=== PATIENT | male | born 1940 | race Caucasian/White ===

== ENCOUNTER 2021-07-17 12:36 | Inpatient (IN) ==
[2021-07-17 13:49] LABS: Eosinophils # (auto) 0.03 K/uL (0-0.5); Eosinophils % (auto) 0.3 %; Hematocrit (blood only) 40.2 % (42-52); Immature Granulocytes # (auto) 0.02 K/uL (0.00-0.02); Immature Granulocytes % (auto) 0.2 %; Lymphocytes # (auto) 0.49 K/uL (1.2-3.4); Lymphocytes % (auto) 4.8 %; Mean Corpuscular Hemoglobin 29.8 pg (25-34); Mean Corpuscular Hgb Conc 32.3 g/dL (32-36); Mean Corpuscular Volume 92.2 fL (80-100); Mean Platelet Volume 10.5 fL (7.4-10.4); Monocytes # (auto) 0.42 K/uL (0.11-0.59); Monocytes % (auto) 4.1 %; Neutrophils % (auto) 90.6 %; Platelet Count 303 K/uL (130-400); RDW Standard Deviation 53.9 fL (36.4-46.3); Red Blood Count 4.36 M/uL (4.7-6.1); White Blood Count 10.26 K/uL (4.8-10.8)
--- NOTE | 2021-07-17 14:04 | XRay Report ---
XR chest 1V portable INDICATION: MN ^weakness . TECHNIQUE: Single frontal radiograph of the chest was obtained. Comparison: Comparison is made to chest one view 05/07/2016 FINDINGS: No lines and tubes are seen. Calcified aortic knob is seen. Lungs are hyperinflated. No evidence of p leural effusion or pneumothorax. IMPRESSION: No acute chest disease. ACT 112: Negative or not required by law. Electronically signed by: Umair Garcia M.D. 07/17/2021 2:03 PM
[2021-07-17 14:05] LABS: Albumin Level 3.2 gm/dl (3.4-5.0); BUN Creatinine Ratio 22.8 (10-20); Creatinine Clr Calc Pharmacy 22.9 ml/min; Est GFR (Non-African American) 29.4 ml/min; Potassium 4.3 mmol/L (3.5-5.1)
[2021-07-17 14:16] LABS: Albumin Globulin Ratio 0.7 (0.9-2); Bilirubin,Total 0.4 mg/dl (0.2-1); Globulin 4.4 gm/dl (2.5-4.0); Total Protein 7.6 gm/dl (6.4-8.2); Troponin I 0.016 ng/ml (0-0.045)
--- NOTE | 2021-07-17 14:47 | Emergency Department Note ---
Impression & Plan MARICRUZ (acute kidney injury), Weakness, Anemia, Tobacco abuse ED Provider Note NAME: WILLEM POSADAS AGE: 81 SEX: M : 1940 ARRIVES VIA: Ambulance INFORMANT: Patient, ED PROVIDER(S): Fred Hsieh MD Chief Complaint: Inability to get up, weakness HPI: Patient does present from home due to concern for dizziness and weakness. The patient does live by himself along with his dog. The patient states that he has not been eating or drinking very much. The patient states that he did not want to fall despite himself on the ground. The patient was found in the bathroom have been there for approximately half an hour until [employer] had shown up and found the patient. EMS arrived it at the patient was able to get up to walk. He agreed to present for further evaluation and treatment. EMS was concerned with the patient's living conditions. The patient is unsure if he is vaccinated for Covid. Patient denies any fevers chills chest pains or shortness of breath. Patient is a chronic smoker. Patient denies any abdominal pain nausea or vomiting. Patient does have an ostomy. Patient denies any numbness tingling or focal weakness. Patient denies head or neck pain. ROS: See HPI for pertinent positives and negatives. A total of 10 systems were reviewed and otherwise negative. Past medical history: See below Surgical history: See below Social history: See below Physical Exam: GENERAL: Disheveled, thin in appearance, NAD, wearing a mask, non-toxic. EYE EXAM: Normal conjunctiva. PERRL, no anisocoria and EOM's grossly intact w/o pain. NECK: Supple, no nuchal rigidity, no adenopathy, non-tender. No signs of meningismus. LUNGS: Clear to auscultation. Normal chest wall mechanics. HEART: NSR, no MRG. ABDOMEN: Abdomen soft, ostomy present, normo-active bowel sounds, no masses, no rebound or guarding. BACK: No CVA TTP. SKIN: No rashes and no bruising. UPPER EXTREMITIES: Upper extremities are grossly normal. LOWER EXTREMITIES: Grossly normal, no edema. NEURO EXAM: A&O x3, cranial nerves II-XII grossly intact, normal speech, moves all 4 extremities. Differential diagnoses: Infection, dehydration, metabolic abnormality, hypo/hyperglycemia, electrolyte disturbance, anemia, hypoxia, cardiac sources, intracerebral event, toxicologic, neurologic, as well as other pathologies. Course: Patient was seen and evaluated the bedside. Full history physical exam was performed. EKG interpreted by me Sinus with rate of 89, normal intervals, normal axis, T wave flattening in aVL. Imaging Studies: See Below Cardiac monitoring: An order was placed for continuous cardiac monitoring. The monitor shows a rate of 92 with sinus rhythm. MDM: Patient did present with concern for weakness. Blood work was obtained. EKG does not show any obvious arrhythmia. Chest x-ray is unremarkable. Patient is a normal white count mild anemia with hemoglobin of 13 with a normal platelet coun t. Kidney function unsure as to baseline but creatinine is 2. Patient did receive IV fluids as the patient does have prerenal azotemia. Mag Maria Luisa calcium normal. TSH is normal. Covid negative. After further discussion with the patient and the case folder do not believe the patient is safe for home at this time. Patient was agreeable to be admitted. I did speak the on-call hospitalist and the patient was admitted to the medicine service by Dr. Doe. Past Med/Surg History Medical History Tobacco user Surgical History Colostomy status History of appendectomy Family History Other Family history unknown Social History Smoking Status: Current every day smoker Tobacco Type: Cigarettes packs per day: 2; Years Smoked: 50; Cigarettes Per Day: > 2 packs; Hx Alcohol Use: No Hx Substance Use: No Preferred Language: Sami Communication Ability: Effective Beliefs That Will Affect Care: None marital status: Single Current Living Situation: Alone Feels Safe at Home: Yes Assistive Devices: None Allergies Allergies Allergy/AdvReac Type Severity Reaction Status Date / Time No Known Allergies Allergy Unverified 07/17/21 16:08 Home Meds Home Medications Medication Instructions Recorded Confirmed No Known Home Medications 07/17/21 07/17/21 Results & Data (ED) Vital Signs Vital Signs - 24 hr 07/17/21 12:58 07/17/21 13:30 07/17/21 13:40 Temperature 36.5 C Temperature Source Oral Pulse Rate 91 H 110 H Pulse Rate from SpO2 Sensor Respiratory Rate 18 Respiratory Effort / Characteristics Non-Labored Respiratory Depth Normal Blood Pressure 127/62 131/71 Blood Pressure Mean 83 91 Pulse Oximetry 99 Oxygen Delivery Method Room Air Room Air Sepsis Recent Fever Within 48 Hours No Sepsis New/Unexplained Change in Mental Status No Sepsis Action Taken by Nursing No Action Required 07/17/21 14:00 07/17/21 15:00 07/17/21 15:30 Temperature Temperature Source Pulse Rate 89 94 H 90 Pulse Rate from SpO2 Sensor 88 94 H 89 Respiratory Rate 19 19 14 Respiratory Effort / Characteristics Respiratory Depth Blood Pressure 124/68 132/63 123/71 Blood Pressure Mean 86 86 88 Pulse Oximetry 99 98 97 Oxygen Delivery Method Room Air Sepsis Recent Fever Within 48 Hours Sepsis New/Unexplained Change in Mental Status Sepsis Action Taken by Nursing 07/17/21 16:00 07/17/21 16:31 07/17/21 17:00 Temperature Temperature Source Pulse Rate 103 H 103 H 86 Pulse Rate from SpO2 Sensor 102 H 106 H Respiratory Rate 21 18 20 Respiratory Effort / Characteristics Respiratory Depth Blood Pressure 106/61 127/68 148/65 H Blood Pressure Mean 76 87 92 Pulse Oximetry 100 99 96 Oxygen Delivery Method Sepsis Recent Fever Within 48 Hours Sepsis New/Unexplained Change in Mental Status Sepsis Action Taken by Nursing 07/17/21 17:31 Temperature Temperature Source Pulse Rate 87 Pulse Rate from SpO2 Sensor Respiratory Rate 16 Respiratory Effort / Characteristics Respiratory Depth Blood Pressure 123/49 L Blood Pressure Mean 73 Pulse Oximetry 97 Oxygen Delivery Method Sepsis Recent Fever Within 48 Hours Sepsis New/Unexplained Change in Mental Status Sepsis Action Taken by [facility] Medications Current Medication List: was personally reviewed by me Laboratory Data Attestation: I reviewed the patient's lab results. Result diagrams: 07/17/21 13:40 07/17/21 13:40 Lab Results 07/17/21 07/17/21 07/17/21 Range/Units 13:40 13:40 13:40 WBC 10.26 (4.8-10.8) K/uL RBC 4.36 L (4.7-6.1) M/uL Hgb 13.0 L (14.0-18.0) g/dL Hct 40.2 L (42-52) % MCV 92.2 (80-100) fL MCH 29.8 (25-34) pg MCHC 32.3 (32-36) g/dL RDW Std Deviation 53.9 H (36.4-46.3) fL RDW Coeff of Ramsey 16.0 H (11.5-14.5) % Plt Count 303 (130-400) K/uL MPV 10.5 H (7.4-10.4) fL Immature Gran % (Auto) 0.2 % Neut % (Auto) 90.6 % Lymph % (Auto) 4.8 % [place] % (Auto) 4.1 % Eos % (Auto) 0.3 % Baso % (Auto) 0.0 % Neut # (Auto) 9.30 H (1.4-6.5) K/uL Lymph # (Auto) 0.49 L (1.2-3.4) K/uL [place] # (Auto) 0.42 (0.11-0.59) K/uL Eos # (Auto) 0.03 (0-0.5) K/uL Baso # (Auto) 0.00 (0-0.2) K/uL Immature Gran # (Auto) 0.02 (0.00-0.02) K/uL Sodium 138 (136-145) mmol/L Potassium 4.3 (3.5-5.1) mmol/L Chloride 108 H (98-107) mmol/L Carbon Dioxide 23 (21-32) mmol/L Anion Gap 7.0 (3-11) BUN 47 H (7-18) mg/dl Creatinine 2.07 H (0.6-1.4) mg/dl Est Cr Clr Drug Dosing 22.9 ml/min Est GFR ( Amer) 34.0 ml/min Est GFR (Non-Af Amer) 29.4 ml/min BUN/Creatinine Ratio 22.8 H (10-20) Glucose 78 (70-99) mg/dl Calcium 10.0 (8.5-10.1) mg/dl Phosphorus (2.5-4.9) mg/dl Magnesium (1.8-2.4) mg/dl Total Bilirubin 0.4 (0.2-1) mg/dl AST 22 (15-37) U/L ALT 20 (12-78) U/L Alkaline Phosphatase 54 (45-117) U/L Total Creatine Kinase (39-308) U/L Troponin I 0.016 (0-0.045) ng/ml Total Protein 7.6 (6.4-8.2) gm/dl Albumin 3.2 L (3.4-5.0) gm/dl Globulin 4.4 H (2.5-4.0) gm/dl Albumin/Globulin Ratio 0.7 L (0.9-2) TSH 2.000 (0.300-4.500) uIu/ml COVID-19 Eval Order Covid19 at [facility] SARS-CoV-2 (PCR) (Negative) 07/17/21 07/17/21 Range/Units 13:40 13:40 WBC (4.8-10.8) K/uL RBC (4.7-6.1) M/uL Hgb (14.0-18.0) g/dL Hct (42-52) % MCV (80-100) fL MCH (25-34) pg MCHC (32-36) g/dL RDW Std Deviation (36.4-46.3) fL RDW Coeff of Ramsey (11.5-14.5) % Plt Count (130-400) K/uL MPV (7.4-10.4) fL Immature Gran % (Auto) % Neut % (Auto) % Lymph % (Auto) % [place] % (Auto) % Eos % (Auto) % Baso % (Auto) % Neut # (Auto) (1.4-6.5) K/uL Lymph # (Auto) (1.2-3.4) K/uL [place] # (Auto) (0.11-0.59) K/uL Eos # (Auto) (0-0.5) K/uL Baso # (Auto) (0-0.2) K/uL Immature Gran # (Auto) (0.00-0.02) K/uL Sodium (136-145) mmol/L Potassium (3.5-5.1) mmol/L Chloride (98-107) mmol/L Carbon Dioxide (21-32) mmol/L Anion Gap (3-11) BUN (7-18) mg/dl Creatinine (0.6-1.4) mg/dl Est Cr Clr Drug Dosing ml/min Est GFR ( Amer) ml/min Est GFR (Non-Af Amer) ml/min BUN/Creatinine Ratio (10-20) Glucose (70-99) mg/dl Calcium (8.5-10.1) mg/dl Phosphorus 3.8 (2.5-4.9) mg/dl Magnesium 2.2 (1.8-2.4) mg/dl Total Bilirubin (0.2-1) mg/dl AST (15-37) U/L ALT (12-78) U/L Alkaline Phosphatase (45-117) U/L Total Creatine Kinase 274 (39-308) U/L Troponin I (0-0.045) ng/ml Total Protein (6.4-8.2) gm/dl Albumin (3.4-5.0) gm/dl Globulin (2.5-4.0) gm/dl Albumin/Globulin Ratio (0.9-2) TSH (0.300-4.500) uIu/ml COVID-19 Eval Order SARS-CoV-2 (PCR) NEGATIVE (Negative) Administered Medications Heparin Sodium (Porcine) (Heparin Sod 5,000 Unit/0.5 Ml Vial) 5,000 units SQ Q12 VANNA Stop: 08/16/21 22:29 Last Admin: 07/18/21 08:23 Dose: 5,000 units Documented by: [id number] Admin: 07/17/21 23:04 Dose: Not Given Documented by: [id number] Sodium Chloride (Nss 1000ml) 1,000 mls @ 80 mls/hr IV .[id number] [facility] Stop: 08/16/21 18:20 Last Admin: 07/18/21 06:09 Dose: 80 mls/hr Documented by: [id number] Infusion: 07/18/21 06:09 Dose: 80 mls/hr Documented by: [id number] Admin: 07/17/21 19:40 Dose: 80 mls/hr Documented by: [id number] Imaging Data Radiologist's Impression: Chest X-Ray 07/17/21 13:17 XR chest 1V portable INDICATION: MN ^weakness . TECHNIQUE: Single frontal radiograph of the chest was obtained. Comparison: Comparison is made to chest one view 05/07/2016 FINDINGS: No lines and tubes are seen. Calcified aortic knob is seen. Lungs are hyperinf lated. No evidence of pleural effusion or pneumothorax. IMPRESSION: No acute chest disease. ACT 112: Negative or not required by law. Electronically signed by: Umair Garcia M.D. 07/17/2021 2:03 PM Discharge Plan Visit Data Chief Complaint: Weakness ED Provider: Fred Hsieh Discharge Problem: MARICRUZ (acute kidney injury), Weakness, Anemia, Tobacco abuse Patient Disposition: Admitted As Inpatient Discharge Instructions Interventions: ED Discharge Assessment Last Done: 07/17/21 21:43
[2021-07-17 18:00] LABS: Magnesium 2.2 mg/dl (1.8-2.4); Phosphorus 3.8 mg/dl (2.5-4.9)
--- NOTE | 2021-07-17 18:03 | Electrocardiogram Report ---
Test Reason : Blood Pressure : / mmHG Vent. Rate : 089 BPM Atrial Rate : 089 BPM P-R Int : 140 ms QRS Dur : 086 ms QT Int : 374 ms P-R-T Axes : 077 075 055 degrees QTc Int : 455 ms Poor data quality, interpretation may be adversely affected Sinus rhythm with Premature supraventricular complexes Borderline ECG When compared with ECG of 07-MAY-2016 12:52, Premature supraventricular complexes are now Present Confirmed by Matt Menendez ([id number]) on 07/17/2021 6:02:32 PM Referred By: Confirmed By:Matt Menendez
--- NOTE | 2021-07-17 18:21 | History & Physical Report ---
Date of Service July 17, 2021 Assessment & Plan (1) Fall: (2) Weakness: (3) Malnutrition: (4) Failure to thrive: Plan: 81 year old Male with unknown medical problems who presents to ED after being found on ground by [employer], unkempt and in a house that is in poor condition. Admits to not eating/drinking for last few days. States felt like he was going to pass out so lowered himself to the floor. He was on ground for ~ 30 minutes until being found by [employer]. 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 He has no contact with family. Pt states medical conditions unknown, he is prescribed medications but he is unsure what and has not been taking any for some time. Overall very poor historian. (5) MARICRUZ (acute kidney injury): Plan: unknown baseline cr bun/cr 47 and 2.07 pt appears very dry, likely pre renal IVF 80cc/hr, repat in am obtain renal US, UA, urine na, osm, prot/cr ratio (6) PVC (premature ventricular contraction): Plan: follow on tele ecg in a.m. (7) Anemia: Plan: h/h 13.0 and 40.2 normocytic normochromic expect it is likely lower due to dehydration anemia panel ordered for am. (8) Colostomy status: Plan: RLQ ostomy, pt unknown reason, he thinks ? colon ca colostomy care (9) Tobacco abuse: Plan: encourage smoking cessation he declines nicotine patch, will order prn (10) Sacral wound: Plan: as well as R lateral hip abrasion consullt wound care Dvt ppx: SQ Heparin Q12h Dispo: med tele PCP: unknown FULL CODE Pt was seen and examined in collaboration with Dr. Doe, please see addendum Primary Contact is friend, Renee Hoskins, . Attempted to call multiple time and no answer to obtain info regarding past medical history, medications or pharmacy used. History of Present Illness Chief Complaint: Fall and weakness prior to arrival. Primary Care Provider: NO PCP This is an 81 male who has a mostly unknown past medical history except for a colostomy and significant tobacco abuse who presents to ED after being found by [employer] on the ground at home after sustained fall and unable to get up. He lives alone at home and was found on the ground by [employer]. Patient states that he felt like he was going to pass out and therefore he lowered himself to the ground. He was only on the ground for approximately 30 minutes. He was unable to get off the ground by himself. EMS was summoned and according to EMS patient's living conditions were unkempt. He has run out of his colostomy supplies and therefore his bowels have just been moving out of his stoma. Currently he denies any pain. He denies any recent illness. He denies any fever, chills, sweats, lightheadedness, dizziness, chest pain, shortness of breath, cough, nausea, vomiting, abdominal pain. He further denies any diarrhea, melena or hematochezia. He is unable to provide me any medical history. He denies any significant medical problems. He admits to having his appendix taken out many years ago, but cannot recall any other surgeries. He is unsure why he had a colostomy and states, "why also they give you a colostomy?" When asked if he felt it was related to a colon cancer he states, "I think it was due to cancer." He states he is prescribed medications but is unsure of his pharmacy. He is unsure what he is prescribed. He has no current family or support system. In ED he remained he dynamically stable lab work for can Ki-1 the BUN of 47 creatinine of 2.07, low albumin at 3.2, H&H 13.0 and 40.2. PMH and FH Unknown per patient Surgical hx: s/p colostomy ? colon ca and hx of appendectomy Allergies Allergy/AdvReac Type Severity Reaction Status Date / Time No Known Allergies Allergy Unverified 07/17/21 16:08 Home Medications Medication Instructions Recorded Confirmed Type No Known Home Medications 07/17/21 07/17/21 History Past Med/Surg History Surgical History (Updated 07/17/21 @ 18:36 by Sharon Hernandez PA-C) Colostomy status History of appendectomy Family History (Updated 07/17/21 @ 18:24 by Sharon Hernandez PA-C) Other Family history unknown Social History (Updated 07/17/21 @ 18:24 by Sharon Hernandez PA-C) Smoking Status: Current every day smoker Tobacco Type: Cigarettes packs per day: 2; Years Smoked: 50; Hx Alcohol Use: No Hx Substance Use: No Preferred Language: Mongolian Communication Ability: Effective marital status: Single Current Living Situation: Alone Feels Safe at Home: Yes Review of Systems Review of Systems: All systems reviewed & are unremarkable except as noted in HPI & below Physical Exam Physical Exam: Constitutional: Tall thin, cachectic, male, vitals as above, NAD, sitting up in bed, flat affect Head: Normocephalic, Atraumatic, bilateral temporal wasting Eyes: PERRL, conjunctivae normal, anicteric sclerae ENMT: external ear and nose normal, oropharynx normal Neck: trachea midline, no thyromegaly normal visual inspection Respiratory: normal respiratory effort, lungs clear to auscultation, no wheeze, rales, rhonchi. Normal insp/exp effort, no accessory muscle use Cardiovascular: RRR, 2/6 JATINDER noted best RUSB, no edema Vessels: no JVD or carotid bruit Chest: normal inspection of chest Abdomen: + Colostomy status, with erythema and surrounding skin, normal bowel sounds, soft, nontender, no hepatosplenomegaly Musculoskeletal: no cyanosis or clubbing, active range of motion x4 Skin: no rashes, warm and dry moderate turgor Neurologic: PERRL, EOMI, accommodation nl, no face palsy, no dysarthria CN's II-XI intact bilaterally and moves all extremities Psychiatric: A+O to self and place only, euthymic affect : deferred Results & Data Results & Data ([facility]) Vital Signs (Past 12 Hours) Vital Signs Temp Pulse Resp BP Pulse Ox 07/17/21 16:31 103 H 18 127/68 99 07/17/21 16:00 103 H 21 106/61 100 07/17/21 15:30 90 14 123/71 97 07/17/21 15:00 94 H 19 132/63 98 07/17/21 14:00 89 19 124/68 99 07/17/21 13:30 110 H 131/71 07/17/21 12:58 36.5 C 91 H 18 127/62 99 Diagnostic Findings Chest X-Ray 07/17/21 13:17 XR chest 1V portable INDICATION: MN ^weakness . TECHNIQUE: Single frontal radiograph of the chest was obtained. Comparison: Comparison is made to chest one view 05/07/2016 FINDINGS: No lines and tubes are seen. Calcified aortic knob is seen. Lungs are hyperinflated. No evidence of pleural effusion or pneumothorax. IMPRESSION: No acute chest disease. ACT 112: Negative or not required by law. Electronically signed by: Umair Garcia M.D. 07/17/2021 2:03 PM ECG Rate (beats per minute): 89 Rhythm: normal sinus Findings: + PVC COVID-19 Results Results COVID-19 Adm Lab Results: RBC 4.36 M/uL (4.7-6.1) L 07/17/21 WBC 10.26 K/uL (4.8-10.8) 07/17/21 Hgb 13.0 g/dL (14.0-18.0) L 07/17/21 Hct 40.2 % (42-52) L 07/17/21 Plt Count 303 K/uL (130-400) 07/17/21 Neutrophils (%) (Auto) 90.6 % 07/17/21 Lymphocytes (%) (Auto) 4.8 % 07/17/21 Monocytes # (Auto) 0.42 K/uL (0.11-0.59) 07/17/21 Eosinophils # (Auto) 0.03 K/uL (0-0.5) 07/17/21 Immature Granulocyte % (Auto) 0.2 % 07/17/21 Neutrophils # (Auto) 9.30 K/uL (1.4-6.5) H 07/17/21 Lymphocytes # (Auto) 0.49 K/uL (1.2-3.4) L 07/17/21 Monocytes # (Auto) 0.42 K/uL (0.11-0.59) 07/17/21 Eosinophils # (Auto) 0.03 K/uL (0-0.5) 07/17/21 Basophils # (Auto) 0.00 K/uL (0-0.2) 07/17/21 Immature Granulocyte # (Auto) 0.02 K/uL (0.00-0.02) 07/17/21 Na 138 mmol/L (136-145) 07/17/21 K 4.3 mmol/L (3.5-5.1) 07/17/21 Cl 108 mmol/L (98-107) H 07/17/21 CO2 23 mmol/L (21-32) 07/17/21 Anion Gap 7.0 (3-11) 07/17/21 BUN 47 mg/dl (7-18) H 07/17/21 Creatinine 2.07 mg/dl (0.6-1.4) H 07/17/21 BUN/Creatinine Ratio 22.8 (10-20) H 07/17/21 Glucose Level 78 mg/dl (70-99) 07/17/21 Ca 10.0 mg/dl (8.5-10.1) 07/17/21 Phosphorus Level 3.8 mg/dl (2.5-4.9) 07/17/21 Total Bilirubin 0.4 mg/dl (0.2-1) 07/17/21 AST/SGOT 22 U/L (15-37) 07/17/21 ALT/SGPT 20 U/L (12-78) 07/17/21 Alkaline Phosphatase 54 U/L (45-117) 07/17/21 Total Protein 7.6 gm/dl (6.4-8.2) 07/17/21 Albumin 3.2 gm/dl (3.4-5.0) L 07/17/21 Globulin 4.4 gm/dl (2.5-4.0) H 07/17/21 Albumin/Globulin Ratio 0.7 (0.9-2) L 07/17/21 Total CK 274 U/L (39-308) 07/17/21 Troponin I 0.016 ng/ml (0-0.045) 07/17/21 COVID-19 PCR NEGATIVE (Negative) 07/17/21 Chest X-Ray 07/17/21 Code Status & VTE Plan Code Status Full Code VTE Prophylaxis Plan VTE Prophylaxis will be ordered: Yes Supervising Physician Co-Signing Physician Notes Patient is an 81-year-old male with unknown past medical history, S/P colostomy, tobacco use disorder and other problems with phone on the floor after sustaining a fall today. Patient is a very poor historian. Patient admits to being noncompliant on medications use and he is unaware of his home medications. He admits to feeling dizzy and lowered himself to the ground and was on the floor for about 30 minutes. He denies any syncopal episode, head trauma. States that he is poor oral intake since 2 days duration. Patient ran out of colostomy supplies. Please review HPI for complete details of presentation. On exam patient is thin, frail, unkept, chronically appearing, normocephalic atraumatic, lungs are clear to auscultation, normal breath sounds, S1-S2,+ murmur, no pedal edema, abdomen soft, nontender, normal bowel sounds, + colostomy, alert, awake, oriented, grossly no focal deficits. He was noted to have creatinine levels at 2.07. Unknown baseline Cr. PVCs noted on monitor. Urine analysis is pending currently. Patient is admitted for management of fall, ambulatory dysfunction, MARICRUZ, malnourishment. Failure to thrive. Start on IV fluids, nutrition consulted. Avoid nephrotoxic agents as able. Check renal ultrasound. Bladder scan as needed. Consider nephrology evaluation if needed. Fall precautions. PT OT. Planning to obtain home medication list from his pharmacy. Case management to help with discharge planning. Agree with wound care nurse consult. Ostomy care. I personally reviewed the record. Patient is interviewed and examined at bedside. Patient's care is coordinated with Sharon Adams. Please refer to the documentation above for details of patient's presentation and for discussion of other issues.
[2021-07-17] MEDS: SODIUM CHLORIDE 0.9% 1000ML 1,000 ML IV SCH (19:40)
--- NOTE | 2021-07-17 21:04 | Ultrasound Report ---
US renal/blad retro comp HISTORY: 81 years-old Male shona acute kidney injury COMPARISON: CT abdomen pelvis 05/20/2015 TECHNIQUE: Multiple real-time sonographic images of the kidneys and urinary bladder were obtained ass essing grayscale appearance and color flow FINDINGS: The right kidney measures 8.3 cm in length and demonstrates diffuse cortical thinning with increased echogenicity. There are a few cysts noted within the right kidney measuring up to 8 mm. Nonshadowing punctate echogenicities are also noted. No hydronephrosis or suspicious mass lesion. The left kidney measures 9.9 cm in length and is also echogenic with nonshadowing tiny echogenicities noted. No hydronephrosis or suspicious mass lesion. Limited visualization the urinary bladder secondary to obscuring bowel gas. IMPRESSION: 1. No definite renal calculi or hydronephrosis. 2. Increased echogenicity of the kidneys suggests chronic medical renal disease. 3. Tiny foci of increased echogenicity of the bilateral kidneys may reflect vascular calcifications. Nonobstructing renal calculi considered less likely. 4. Suboptimally visualized urinary bladder secondary to obscuring bowel gas. ACT 112: Negative or not required by law. The above report was generated using voice recognition software. It may contain grammatical, syntax o r spelling errors. Electronically signed by: Jona Saba M.D. 07/17/2021 9:02 PM
[2021-07-17] MEDS ORDERED: ALUMINUM/MAGNESIUM SUSP 30 ML UDC PO PRN (22:30)
[2021-07-17] MEDS ORDERED: ACETAMINOPHEN 325 MG TAB PO PRN (22:30)
[2021-07-17] MEDS ORDERED: ONDANSETRON INJ 2 MG/ML 2 ML VIAL IV PRN (22:30)
[2021-07-17] MEDS ORDERED: POLYETHYLENE (MIRALAX) 17 GM PACK PO PRN (22:30)
[2021-07-17] MEDS ORDERED: MAGNESIUM HYDROXIDE SUSP 30 ML UDC PO PRN (22:30)
[2021-07-17] MEDS ORDERED: NICOTINE 21 MG/24 HR TDSY TD PRN (22:30)
[2021-07-17] MEDS: HEPARIN SOD 5,000 UNIT/0.5 ML VIAL SQ SCH (23:04)
[2021-07-18] MEDS: SODIUM CHLORIDE 0.9% 1000ML 1,000 ML IV SCH ×2 (06:09→15:31)
--- NOTE | 2021-07-18 08:01 | Hospitalist Progress Note ---
Date of Service July 18, 2021 Assessment & Plan (1) Fall: (2) Weakness: (3) Malnutrition: (4) Failure to thrive: Plan: This is an 81 year old Male with PMH of colon cancer s/p resection, CAD (s/p stent), PAD, tobacco abuse with is noncompliant with medications presented to ED after being found on ground by meals on wheels. Lives alone in a trailer, is not safe to live alone per friends who stop by (see HPI for more details). Patient is not close to family. Is a poor historian believed to have underlying dementia. Admits to poor PO intake. Had lost 11 pounds over past month per recent CT progress note Brought in for evaluation of lightheadedness, was found on the ground by [employer] volunteer Lab work improved today after IV fluids No evidence of infection, hgb 10.8. Low potassium of 3.4 today - replacing. Total protein low at 6 Consulted geographic information systems manager, PT, OT and case mgmt PT and OT recommending inpatient rehab (5) MARICRUZ (acute kidney injury): Plan: Unknown baseline cr Initial Cr 2.07 yesterday --> improved to 1.81 today in setting of IV fluids - continue No documented history of CKD Still appears dry Renal ultrasound with: 1. No definite renal calculi or hydronephrosis. 2. Increased echogenicity of the kidneys suggests chronic medical renal disease. 3. Tiny foci of increased echogenicity of the bilateral kidneys may reflect vascular calcifications. Nonobstructing renal calculi considered less likely. Urine studies pending (6) PVC (premature ventricular contraction): Plan: Telemetry reviewed - normal sinus with PACs (7) Anemia: Plan: Initial H/H 13.0 and 40.2 Hgb of 10.8 now that patient more hydrated Normocytic normochromic Lab work consistent with anemia of chronic disease Serum iron, ferritin, folate and B12 wnl (8) Colostomy status: Plan: RLQ ostomy, h/o colon cancer colostomy care (9) Tobacco abuse: Plan: Smokes 2-3 ppd Declines nicotine patch, will order prn (10) Sacral wound: Plan: As well as R lateral hip abrasion Wound care seeing Dvt ppx: SQ Heparin Q12h Dispo: Admitted to [facility] tele PCP: [facility] - SUPERANNUATION CLERK Livia Sheridan FULL CODE Pt was seen and examined in collaboration with Dr. Doe, please see addendum Admission and Anticipated Discharge Date Admission Date: July 17, 2021 Supervising Physician Co-Signing Physician Notes Patient is seen and examined at bedside. Sitting in chair comfortably this morning. Renal function slowly improving. Able to void urine with no issues. Denies chest pain, dyspnea, dizziness, nausea, abdominal pain. On exam patient is thin, frail, unkept, chronically appearing, normocephalic atraumatic, lungs are clear to auscultation, normal breath sounds, S1-S2,+ murmur, no pedal edema, abdomen soft, nontender, normal bowel sounds, + colostomy, alert, awake, oriented, grossly no focal deficits. Acute kidney injury. Unknown baseline. Cr: 2.0 >1.8. Likely prerenal due to poor oral intake. Continue IV fluids. Avoid nephrotoxic agents as able. DEXA scan showed no retention. Renal ultrasound reviewed. Urine studies pending. Continue PT OT. May need rehab placement. I personally reviewed the record. Patient is interviewed and examined at bedside. Patient's care is coordinated with Rose Melvin PA-C. Please refer to the documentation above for details of patient's presentation and for discussion of other issues. Subjective Patient examined in 276-1. Feeling well today. No longer experiencing light headedness. No chest pain, SOB, nausea, vomiting, abdominal pain, dysuria, diarrhea or constipation. Alert and oriented to person and place. More information provided today with records faxed from [place] and over the phone with friend, Renee. Patient lives alone in a trailer. Is thought to have dementia per friends who stop by and help occasionally. He reportedly forgets to eat meals left in his freezer by friends and [employer]. Also sometimes forgets to feed his dog. House is in disarray with animal feces. Smokes 2-3 packs per day. Friend said it is not uncommon for patient to fall asleep in recliner chair with a lit cigarette in his hand. Receives healthcare from [facility] in [place]. Has home health aides 3x/week. Friends help manage finances. Endorses PMH of CAD (s/p stent), PVD, tobacco use disorder, history of colon cancer s/p resection. Has colostomy. Has declined follow up care for colon cancer or lung nodules. Does not take any of his scheduled medications. Was recently seen at [facility] with note from 07/12/21 indicating 11 pound weight loss over the past month. Eats 1 meal per day. Friends do not think patient is safe to live alone and would benefit from placement. Review of Systems Review of Systems: At least ten systems reviewed and negative except as noted in the HPI. Physical Exam Physical Exam: General Appearance: vitals as above, NAD, sitting up in bed, poorly groomed, cachectic Head: normocephalic, atraumatic Eyes: normal inspection, PERRL, conjunctivae normal, anicteric sclerae ENT: external ear and nose normal, oropharynx normal Neck: normal visual inspection, trachea midline, no thyromegaly Respiratory: normal respiratory effort, lungs clear to auscultation, no wheeze, rales, rhonchi. No accessory muscle use Cardiovascular: regular rate, rhythm, + murmur, normal peripheral pulses, no BL E edema. Vessels: no JVD Chest: normal inspection of chest Abdomen/GI: normal bowel sounds, soft, nontender, no hepatosplenomegaly Extremities/Musculoskeletal: no cyanosis or clubbing, extremities motor strength 5/5 Neurologic: PERRL, EOMI, accommodation nl, no face palsy, no dysarthria, CN's II-XI intact bilaterally and moves all extremities Psychiatric: A+Ox person and place, not time or situation Skin: +sacral wound present on admission no rashes, normal color, warm/dry Results & Data Results & Data ([facility]) Vital Signs (Past 12 Hours) Vital Signs Temp Pulse Pulse Resp BP BP BP 07/18/21 04:00 37 C 84 18 109/55 L 07/18/21 00:35 95 H 07/17/21 22:37 37.1 C 99 H 18 114/60 07/17/21 22:30 07/17/21 21:30 86 21 129/53 L 07/17/21 21:00 93 H 18 131/56 L 07/17/21 20:55 88 16 141/52 H Pulse Ox Pulse Ox 07/18/21 04:00 96 07/18/21 00:35 07/17/21 22:37 95 07/17/21 22:30 95 07/17/21 21:30 95 07/17/21 21:00 07/17/21 20:55 96 Laboratory Results Short CBC 07/17/21 07/18/21 Range/Units 13:40 09:09 WBC 10.26 6.17 (4.8-10.8) K/uL Hgb 13.0 L 10.8 L (14.0-18.0) g/dL Hct 40.2 L 34.7 L (42-52) % Plt Count 303 250 (130-400) K/uL BMP 07/17/21 07/18/21 13:40 09:09 Sodium 138 139 Potassium 4.3 3.4 L D Chloride 108 H 110 H Carbon Dioxide 23 24 BUN 47 H 36 H Creatinine 2.07 H 1.81 H Glucose 78 83 Calcium 10.0 8.5 Cardiac Enzymes 07/17/21 07/17/21 Range/Units 13:40 13:40 Total Creatine Kinase 274 (39-308) U/L Troponin I 0.016 (0-0.045) ng/ml Liver Function 07/17/21 07/18/21 Range/Units 13:40 09:09 Total Bilirubin 0.4 0.3 (0.2-1) mg/dl AST 22 21 (15-37) U/L ALT 20 16 (12-78) U/L Alkaline Phosphatase 54 45 (45-117) U/L Albumin 3.2 L 2.6 L (3.4-5.0) gm/dl Diagnostic Findings Chest X-Ray 07/17/21 13:17 XR chest 1V portable INDICATION: MN ^weakness . TECHNIQUE: Single frontal radiograph of the chest was obtained. Comparison: Comparison is made to chest one view 05/07/2016 FINDINGS: No lines and tubes are seen. Calcified aortic knob is seen. Lungs are hyperinflated. No evidence of pleural effusion or pneumothorax. IMPRESSION: No acute chest disease. ACT 112: Negative or not required by law. Electronically signed by: Umair Garcia M.D. 07/17/2021 2:03 PM Renal Ultrasound 07/17/21 18:14 US renal/blad retro comp HISTORY: 81 years-old Male maricruz acute kidney injury COMPARISON: CT abdomen pelvis 05/20/2015 TECHNIQUE: Multiple real-time sonographic images of the kidneys and urinary bladder were obtained assessing grayscale appearance and color flow FINDINGS: The right kidney measures 8.3 cm in length and demonstrates diffuse cortical thinning with increased echogenicity. There are a few cysts noted within the right kidney measuring up to 8 mm. Nonshadowing punctate echogenicities are also noted. No hydronephrosis or suspicious mass lesion. The left kidney measures 9.9 cm in length and is also echogenic with nonshadowing tiny echogenicities noted. No hydronephrosis or suspicious mass lesion. Limited visualization the urinary bladder secondary to obscuring bowel gas. IMPRESSION: 1. No definite renal calculi or hydronephrosis. 2. Increased echogenicity of the kidneys suggests chronic medical renal disease. 3. Tiny foci of increased echogenicity of the bilateral kidneys may reflect vascular calcifications. Nonobstructing renal calculi considered less likely. 4. Suboptimally visualized urinary bladder secondary to obscuring bowel gas. ACT 112: Negative or not required by law. The above report was generated using voice recognition software. It may contain grammatical, syntax or spelling errors. Electronically signed by: Jona Saba M.D. 07/17/2021 9:02 PM (1) Anemia Anemia type: unspecified type Qualified Code(s): D64.9 - Anemia, unspecified
[2021-07-18] MEDS: HEPARIN SOD 5,000 UNIT/0.5 ML VIAL SQ SCH ×2 (08:23→20:28)
[2021-07-18 09:22] LABS: Basophils # (auto) 0.01 K/uL (0-0.2); Basophils % (auto) 0.2 %; Eosinophils # (auto) 0.07 K/uL (0-0.5); Eosinophils % (auto) 1.1 %; Hematocrit (blood only) 34.7 % (42-52); Hemoglobin 10.8 g/dL (14.0-18.0); Immature Granulocytes # (auto) 0.01 K/uL (0.00-0.02); Immature Granulocytes % (auto) 0.2 %; Lymphocytes # (auto) 0.62 K/uL (1.2-3.4); Mean Corpuscular Hemoglobin 28.8 pg (25-34); Mean Corpuscular Hgb Conc 31.1 g/dL (32-36); Mean Corpuscular Volume 92.5 fL (80-100); Mean Platelet Volume 10.7 fL (7.4-10.4); Monocytes # (auto) 0.39 K/uL (0.11-0.59); Monocytes % (auto) 6.3 %; Neutrophils # (auto) 5.07 K/uL (1.4-6.5); Neutrophils % (auto) 82.2 %; Platelet Count 250 K/uL (130-400); RDW Coefficient of Variation 16.2 % (11.5-14.5); RDW Standard Deviation 54.9 fL (36.4-46.3); Red Blood Count 3.75 M/uL (4.7-6.1); White Blood Count 6.17 K/uL (4.8-10.8)
[2021-07-18 09:50] LABS: Albumin Globulin Ratio 0.8 (0.9-2); Albumin Level 2.6 gm/dl (3.4-5.0); BUN Creatinine Ratio 19.8 (10-20); Bilirubin,Total 0.3 mg/dl (0.2-1); Calcium 8.5 mg/dl (8.5-10.1); Creatinine Clr Calc Pharmacy 27.6 ml/min; Est GFR (Non-African American) 34.5 ml/min; Ferritin 66.6 ng/ml (8-388); Globulin 3.4 gm/dl (2.5-4.0); Magnesium 1.8 mg/dl (1.8-2.4); Potassium 3.4 mmol/L (3.5-5.1)
[2021-07-18] MEDS ORDERED: POTASSIUM CHLORIDE CRTAB 20 MEQ TABCR PO ONE (10:00)
[2021-07-18 10:13] LABS: Folate (Folic Acid) > 20.00 ng/ml (>5.38); Vitamin B12 611 pg/ml (193-986)
[2021-07-18 14:42] LABS: Appearance Urine Cloudy (Clear); Bacteria Urine Automated Negative (Negative); Bilirubin Urine Negative (Negative); Blood Urine 3+ (Negative); Color Urine Yellow; Epithelial Cell Urine Auto >30 /lpf (0-5); Glucose Urine UA Negative (Negative); Ketones Urine Negative (Negative); Leukocyte Esterase Urine 1+ (Negative); Nitrite Urine Negative (Negative); Protein Urine 1+ (Negative); Specific Gravity Urine 1.018 (1.000-1.030); Urobilinogen Urine Negative (Negative); WBC Urine Automated >30 /hpf (0-5); pH Urine 5.5 (4.5-7.5)
[2021-07-18 14:58] LABS: Mucus Urine Present (None Prsent)
[2021-07-18 14:59] LABS: Calcium Oxalate Crystals Urine Present (None Prsent)
[2021-07-18 15:22] LABS: Protein Creatinine Ratio Urine 0.5 (0-0.2); Total Protein Urine Random 90.7 mg/dl (0-11.9)
--- NOTE | 2021-07-18 15:24 | Electrocardiogram Report ---
Test Reason : Blood Pressure : / mmHG Vent. Rate : 067 BPM Atrial Rate : 070 BPM P-R Int : 000 ms QRS Dur : 088 ms QT Int : 402 ms P-R-T Axes : 000 065 077 degrees QTc Int : 424 ms Poor data quality, interpretation may be adversely affected Sinus rhythm Abnormal ECG When compared with ECG of 17-JUL-2021 13:05, T wave inversion no longer evident in Inferior leads Confirmed by Matt Menendez ([id number]) on 07/18/2021 3:24:47 PM Referred By: REFERRED SELF Confirmed By:Matt Menendez
[2021-07-19] MEDS: SODIUM CHLORIDE 0.9% 1000ML 1,000 ML IV SCH ×3 (05:04→20:20)
[2021-07-19 05:55] LABS: Hematocrit (blood only) 31.7 % (42-52); Mean Corpuscular Hemoglobin 29.3 pg (25-34); Mean Corpuscular Hgb Conc 31.5 g/dL (32-36); Mean Platelet Volume 10.8 fL (7.4-10.4); Platelet Count 202 K/uL (130-400); RDW Coefficient of Variation 16.1 % (11.5-14.5); RDW Standard Deviation 54.6 fL (36.4-46.3); Red Blood Count 3.41 M/uL (4.7-6.1); White Blood Count 4.04 K/uL (4.8-10.8)
[2021-07-19 06:26] LABS: BUN Creatinine Ratio 18.9 (10-20); Creatinine Clr Calc Pharmacy 29.4 ml/min; Est GFR (African American) 43.2 ml/min; Est GFR (Non-African American) 37.3 ml/min; Potassium 3.7 mmol/L (3.5-5.1)
[2021-07-19] MEDS: HEPARIN SOD 5,000 UNIT/0.5 ML VIAL SQ SCH ×2 (08:02→20:24)
[2021-07-19] MEDS ORDERED: cefTRIAXone SODIUM 1,000 MG in DEXTROSE 5% 50 ML IV SCH (09:00)
--- NOTE | 2021-07-19 16:37 | Hospitalist Progress Note ---
Date of Service July 19, 2021 Assessment & Plan (1) Fall: (2) Weakness: (3) Malnutrition: (4) Failure to thrive: Plan: Patient is an 81 yr Male with H/O Colon cancer s/p resection, CAD (s/p stent), PAD, tobacco abuse with is noncompliant with medications presented to ED after being found on ground by meals on wheels. Lives alone in a trailer, is not safe to live alone per friends who stop by (see HPI for more details). Patient is not close to family. Is a poor historian believed to have underlying dementia. Failure to thrive Severe protein calorie malnutrition Poor PO intake Lost 11 [facility] Brought in for evaluation of lightheadedness, was found on the ground by [employer] volunteer Consulted loom inspector PT, OT Needs Rehab placement Hypokalemia Replace electrolytes as needed (5) MARICRUZ (acute kidney injury): Plan: Acute kidney injury Likely prerenal Unknown baseline cr Cr:2.07>1.7 -Renal USD:No definite renal calculi or hydronephrosis. Increased echogenicity of the kidneys suggests chronic medical renal disease. Tiny foci of increased echogenicity of the bilateral kidneys may reflect vascular calcifications. Nonobstructing renal calculi considered less likely. -Continue IV fluids Monitor renal function (6) PVC (premature ventricular contraction): Plan: Telemetry reviewed - normal sinus with PACs Monitor (7) Anemia: Plan: Anemia of chronic disease Initial H/H 13.0 and 40.2 Likely hemoconcentration on presentation Hb stable Hb drop dilutional secondary to IV fluids No bleeding issues Serum iron, ferritin, folate and B12 wnl (8) Colostomy status: Plan: RLQ ostomy, h/o colon cancer colostomy care (9) Tobacco abuse: Plan: Smokes 2-3 ppd Declines nicotine patch, will order prn (10) Sacral wound: Plan: Right lateral hip abrasion Wound care consulted DVT Px: Heparin SQ Code Status FULL CODE Disposition Case management to help with discharge planning Admission and Anticipated Discharge Date Admission Date: July 17, 2021 Subjective Patient is seen and examined bedside States feeling tired Otherwise no new complaints Denies chest pain, dyspnea, dizziness, nausea, abdominal pain Review of Systems Review of Systems: All systems reviewed & are unremarkable except as noted in Subjective Physical Exam Physical Exam: Physical Exam: Vitals signs as noted above General Appearance:Thin, frail, Chronic ill appearing. Head: normocephalic, Atraumatic Eyes: normal inspection, EOMI Neck: supple, Trachea midline Respiratory/Chest: Normal breath sounds, CTA, No accessory muscle use Cardiovascular: S1, S2, + murmur Abdomen/GI:Soft, Non tender, Bowel sounds present, +Colostomy Extremities/Musculoskeletal:normal inspection, no edema Neurologic/Psych:AAOX3, grossly no focal neurological deficits Skin: normal color, warm Results & Data Results & Data ([facility]) Vital Signs (Past 12 Hours) Vital Signs Temp Pulse Pulse Resp BP BP Pulse Ox 07/19/21 15:41 36.6 C 66 16 134/61 95 07/19/21 15:32 70 07/19/21 13:57 36.5 C 71 16 120/68 07/19/21 07:47 84 07/19/21 06:57 36.7 C 78 18 125/50 L 91 Laboratory Results Short CBC 07/19/21 Range/Units 05:10 WBC 4.04 L (4.8-10.8) K/uL Hgb 10.0 L (14.0-18.0) g/dL Hct 31.7 L (42-52) % Plt Count 202 (130-400) K/uL BMP 07/19/21 05:10 Sodium 137 Potassium 3.7 Chloride 112 H Carbon Dioxide 24 BUN 32 H Creatinine 1.70 H Glucose 79 Calcium 8.0 L (1) Anemia Anemia type: unspecified type Qualified Code(s): D64.9 - Anemia, unspecified
[2021-07-20 07:38] LABS: BUN Creatinine Ratio 15.8 (10-20); Creatinine Clr Calc Pharmacy 36.3 ml/min; Est GFR (African American) 55.1 ml/min; Est GFR (Non-African American) 47.5 ml/min; Potassium 3.6 mmol/L (3.5-5.1)
[2021-07-20] MEDS: HEPARIN SOD 5,000 UNIT/0.5 ML VIAL SQ SCH ×2 (07:43→20:32)
[2021-07-20] MEDS: SODIUM CHLORIDE 0.9% 1000ML 1,000 ML IV SCH (07:48)
[2021-07-20] MEDS ORDERED: POTASSIUM CHLORIDE CRTAB 20 MEQ TABCR PO ONE (09:16)
--- NOTE | 2021-07-20 13:01 | Hospitalist Progress Note ---
Date of Service July 20, 2021 Assessment & Plan (1) Fall: (2) Weakness: (3) Malnutrition: (4) Failure to thrive: Plan: Patient is an 81 yr Male with H/O Colon cancer s/p resection, CAD (s/p stent), PAD, tobacco abuse with is noncompliant with medications presented to ED after being found on ground by meals on wheels. Lives alone in a trailer, is not safe to live alone per friends who stop by (see HPI for more details). Patient is not close to family. Is a poor historian believed to have underlying dementia. Failure to thrive Severe protein calorie malnutrition Poor PO intake Lost 11 pounds over past [facility] Brought in for evaluation of lightheadedness, was found on the ground by [employer] volunteer Consulted practice support specialist PT, OT: Recommends Rehab Plan to discharge to Rehab facility when accepted Hypokalemia Replace electrolytes as needed (5) MARICRUZ (acute kidney injury): Plan: Acute kidney injury Likely prerenal Unknown baseline cr Cr:2.07>1.7>1.3 -Renal USD:No definite renal calculi or hydronephrosis. Increased echogenicity of the kidneys suggests chronic medical renal disease. Tiny foci of increased echogenicity of the bilateral kidneys may reflect vascular calcifications. Nonobstructing renal calculi considered less likely. -Received IV fluids Monitor renal function (6) PVC (premature ventricular contraction): Plan: Telemetry reviewed - normal sinus with PACs Monitor (7) Anemia: Plan: Anemia of chronic disease Initial H/H 13.0 and 40.2 Likely hemoconcentration on presentation Hb stable Hb drop dilutional secondary to IV fluids No bleeding issues Serum iron, ferritin, folate and B12 wnl (8) Colostomy status: Plan: RLQ ostomy, h/o colon cancer colostomy care (9) Tobacco abuse: Plan: Smokes 2-3 ppd Declines nicotine patch, will order prn (10) Sacral wound: Plan: Right lateral hip abrasion Wound care consulted DVT Px: Heparin SQ Code Status FULL CODE Disposition Rehab when accepted Admission and Anticipated Discharge Date Admission Date: July 17, 2021 Subjective Patient is seen and examined bedside Reinjured notably this morning No new complaints Denies chest pain, dyspnea, dizziness, nausea, abdominal pain Renal function is improving Review of Systems Review of Systems: All systems reviewed & are unremarkable except as noted in Subjective Physical Exam Physical Exam: Physical Exam: Vitals signs as noted above General Appearance:Thin, frail, Chronic ill appearing. Head: normocephalic, Atraumatic Eyes: normal inspection, EOMI Neck: supple, Trachea midline Respiratory/Chest: Normal breath sounds, CTA, No accessory muscle use Cardiovascular: S1, S2, + murmur Abdomen/GI:Soft, Non tender, Bowel sounds present, +Colostomy Extremities/Musculoskeletal:normal inspection, no edema Neurologic/Psych:AAOX3, grossly no focal neurological deficits Skin: normal color, warm Results & Data Results & Data ([facility]) Vital Signs (Past 12 Hours) Vital Signs Temp Pulse Pulse Resp BP BP Pulse Ox 07/20/21 07:39 36.4 C L 80 16 132/60 94 07/20/21 07:17 74 07/20/21 03:35 36.7 C 63 18 123/57 L 94 07/20/21 01:23 73 Laboratory Results [facility] 07/20/21 06:45 Sodium 140 Potassium 3.6 Chloride 112 H Carbon Dioxide 22 BUN 22 H Creatinine 1.39 D Glucose 91 Calcium 8.0 L (1) Anemia Anemia type: unspecified type Qualified Code(s): D64.9 - Anemia, unspecified
[2021-07-21] MEDS: HEPARIN SOD 5,000 UNIT/0.5 ML VIAL SQ SCH (08:10)
[2021-07-21 08:11] LABS: BUN Creatinine Ratio 13.3 (10-20); Calcium 8.8 mg/dl (8.5-10.1); Creatinine Clr Calc Pharmacy 30.9 ml/min; Est GFR (African American) 45.4 ml/min; Est GFR (Non-African American) 39.2 ml/min
--- NOTE | 2021-07-21 10:50 | Discharge Summary ---
Date of Service July 21, 2021 Admission HPI Per Admitting Provider This is an 81 male who has a mostly unknown past medical history except for a colostomy and significant tobacco abuse who presents to ED after being found by [employer] on the ground at home after sustained fall and unable to get up. He lives alone at home and was found on the ground by [employer]. Patient states that he felt like he was going to pass out and therefore he lowered himself to the ground. He was only on the ground for approximately 30 minutes. He was unable to get off the ground by himself. EMS was summoned and according to EMS patient's living conditions were unkempt. He has run out of his colostomy supplies and therefore his bowels have just been moving out of his stoma. Currently he denies any pain. He denies any recent illness. He denies any fever, chills, sweats, lightheadedness, dizziness, chest pain, shortness of breath, cough, nausea, vomiting, abdominal pain. He further denies any diarrhea, melena or hematochezia. He is unable to provide me any medical hist ory. He denies any significant medical problems. He admits to having his appendix taken out many years ago, but cannot recall any other surgeries. He is unsure why he had a colostomy and states, "why also they give you a colostomy?" When asked if he felt it was related to a colon cancer he states, "I think it was due to cancer." He states he is prescribed medications but is unsure of his pharmacy. He is unsure what he is prescribed. He has no current family or support system. In ED he remained he dynamically stable lab work for can Ki-1 the BUN of 47 creatinine of 2.07, low albumin at 3.2, H&H 13.0 and 40.2. PMH and FH Unknown per patient Surgical hx: s/p colostomy ? colon ca and hx of appendectomy Admission Exam Per Admitting Provider Constitutional: Tall thin, cachectic, male, vitals as above, NAD, sitting up in bed, flat affect Head: Normocephalic, Atraumatic, bilateral temporal wasting Eyes: PERRL, conjunctivae normal, anicteric sclerae ENMT: external ear and nose normal, oropharynx normal Neck: trachea midline, no thyromegaly normal visual inspection Respiratory: normal respiratory effort, lungs clear to auscultation, no wheeze, rales, rhonchi. Normal insp/exp effort, no accessory muscle use Cardiovascular: RRR, 2/6 JATINDER noted best RUSB, no edema Vessels: no JVD or carotid bruit Chest: normal inspection of chest Abdomen: + Colostomy status, with erythema and surrounding skin, normal bowel sounds, soft, nontender, no hepatosplenomegaly Musculoskeletal: no cyanosis or clubbing, active range of motion x4 Skin: no rashes, warm and dry moderate turgor Neurologic: PERRL, EOMI, accommodation nl, no face palsy, no dysarthria CN's II-XI intact bilaterally and moves all extremities Psychiatric: A+O to self and place only, euthymic affect : deferred Principal Diagnosis Failure to thrive Fall Generalized weakness, ambulatory dysfunction Discharge Exam Constitutional WD/WN, vitals as above Respiratory normal respiratory effort; no respiratory distress Auscultation: + diminished lung sounds Cardiovascular Rate/Rhythm: regular rate Heart Sounds: + murmur (grade 3/6 systolic murmur ) Gastrointestinal (Abdomen) normal bowel sounds, soft, nontender, no hepatosplenomegaly Colostomy in place Skin no rashes, warm and dry Neurologic no focal motor deficits Psychiatric Orientation: alert and oriented x 3 Insight: + limited insight Intermittent mild confusion Discharge Data Allergies Allergy/AdvReac Type Severity Reaction Status Date / Time No Known Allergies Allergy Unverified 07/17/21 16:08 Consultations none Procedures Performed none Ordered Studies Renal US IMPRESSION: 1. No definite renal calculi or hydronephrosis. 2. Increased echogenicity of the kidneys suggests chronic medical renal disease. 3. Tiny foci of increased echogenicity of the bilateral kidneys may reflect vascular calcifications. Nonobstructing renal calculi considered less likely. 4. Suboptimally visualized urinary bladder secondary to obscuring bowel gas. Hospital Course (1) Fall: (2) Weakness: (3) Malnutrition: (4) Anemia: (5) Abnormal renal function: (6) Failure to thrive: 81-year-old male who presented to the ED on 07/18 after being found on the ground by [employer]. Patient lives alone in a trailer and has unkept living conditions per EMS. Patient is not close with his family. He is a poor historian and likely has underlying dementia. He does not take any home medications. Per recent [facility] progress note, patient has lost 11 pounds over the past 1 month. Patient was admitted and given IV fluids. He was also evaluated by PT and OT who recommended rehab. Patient reluctantly agreed to go to [facility]. Labs showed a fluctuating creatinine 2.0 -> 1.8 -> 1.7 -> 1.3 -> 1.6. Suspect underlying CKD however baseline unknown. Renal ultrasound was obtained that was negative for obstructive renal calculi and hydronephrosis however did show findings suggestive of chronic medical renal disease. Hgb 13.0 -> 10.8 -> 10.0. Likely anemia of chronic disease and dilutional component from IVF. Iron, ferritin, folate, vitamin B12 checked and WNL. (7) Colostomy status: RLQ ostomy, h/o colon cancer colostomy care Total Time Total Time Spent Total Time Spent (In Minutes): 40 Discharge Plan Discharge Items Patient Disposition: Transfer Inpatient Rehab Fac Reason For Visit: WEAKNESS, FAILURE TO THRIVE Discharge Diagnosis: Acute kidney injury Failure to thrive Severe protein calorie malnutrition Activity: Per Instructions section Exercise/Sports: Gradually increase as tolerated Non-emergency contact: Primary Care Provider Call non-emergency contact if: you have any medication questions, your symptoms worsen, your pain is concerning for you and you have a fever Follow-up/Referrals: PCP,NO [Primary Care Provider] - Diet: Regular Addtl Attending Provider Instructions: Follow-up with your primary care physician at [facility] in 1 week upon discharge from your facility Seek immediate medical attention if your symptoms reoccur or worsen Please take all medications as instructed on discharge list below. Please call if you have any questions or problems. You can reach a [facility] hospitalist on duty at [facility] 24 hours a day by calling [phone] Pending Studies at Discharge: No Stand-Alone Forms: My [facility] Skilled Items Patient informed of condition?: Yes DNR: No Discharge Level of Care: Acute rehab Communicable Disease: No Discharge Prognosis: Stable Lines: None Urinary Catheter: No Medications and DC Order Prescriptions: No Action No Known Home Medications RF: 0 Discharge Orders: Discharge Order (Routine); Ordered 07/21/21 Ordered By: Carline Headley Admission Data Admit Date/Time: 09/23/21 17:36 Attending Provider: Valentino Doe Admit Provider: Valentino Doe Primary Care Provider: PCP,NO Other Providers: Valentino Doe ; Rose Melvin ; [facility] ; [facility] Supervising Physician Co-Signing Physician Notes Patient is seen and examined at bedside. Doing well today. Offers no complaints. Plan to be discharged to rehab facility today. On exam patient is thin, frail, unkept, chronically appearing, normocephalic atraumatic, lungs are clear to auscultation, normal breath sounds, S1-S2,+ murmur, no pedal edema, abdomen soft, nontender, normal bowel sounds, + colostomy, alert, awake, oriented, grossly no focal deficits. Acute kidney injury. Unknown baseline. Cr: 2.0 >1.6. Does have underlying CKD. Received IV fluids. Avoid nephrotoxic agents as able. Continue PT OT. Plan to discharge to rehab facility. I personally reviewed the record. Patient is interviewed and examined at bedside. Patient's care is coordinated with Carline Headley MANAGER DOCUMENTATION. Please refer to the documentation above for details of patient's presentation and for discussion of other issues.
== END 2021-07-21 16:48 | DRG 682 ==
LOC: ED 12:36 → 2N 17:36

== ENCOUNTER 2021-09-11 10:57 | Inpatient (IN) ==
[2021-09-11] MEDS ORDERED: SODIUM CHLORIDE 0.9% 500 ML IV SCH (11:45)
--- NOTE | 2021-09-11 12:28 | Emergency Department Note ---
Impression & Plan Abnormal EKG, Anemia, Elevated troponin I level, Hematuria, Bladder mass ED Provider Note NAME: WILLEM POSADAS AGE: 81 SEX: M : 1940 ARRIVES VIA: Ambulance INFORMANT: Patient, ED PROVIDER(S): Fermin Santiago DO CHIEF COMPLAINT: Hematuria HPI: The patient is an 81-year-old male who presented to the emergency department for an evaluation of hematuria. The [facility] and was sent to the emergency department because he has been having abdominal pain hematuria for the last few days. He denies having any back pain. Reportedly he has had no vomiting or fe tommie. He denies having any chest pain. The patient states he had significant hematuria over the last 48 hours. He states he has very significant pain with trying to urinate and is refusing a Santos catheter at this time. He states he is never had a work-up for hematuria in the past. Specifically he denies having a history of prostate or bladder issues. ROS: See above HPI for pertinent positives & negatives. A total of 10 systems reviewed and were otherwise negative. PAST MEDICAL HISTORY: See Below PAST SURGICAL HISTORY: See Below FAMILY HISTORY: See Below SOCIAL HISTORY: See Below HOME MEDICATIONS: See Below ALLERGIES: See Below VITALS: See Below PHYSICAL EXAMINATION: GENERAL: The patient is awake and alert. He is somewhat anxious appearing but overall comfortable. EYES: The conjunctivae are pale. The pupils are round and reactive. EARS, NOSE, MOUTH AND THROAT: The nose is without any evidence of any deformity. NECK: The neck is nontender and supple. RESPIRATORY: Normal respiratory effort is noted there is no evidence of wheezing rhonchi or rales CARDIOVASCULAR: Regular rate and rhythm noted there no murmurs rubs or gallops normal S1 normal S2. GASTROINTESTINAL: The abdomen is soft and mildly distended. There is suprapubic tenderness to palpation but no guarding or rigidity. MUSCULOSKELETAL/EXTREMITIES: There is no evidence of gross deformity full range of motion is noted in the hips and shoulders. SKIN: There is no obvious evidence of any rash. There are no petechiae, pallor or cyanosis noted. NEUROLOGIC: Patient is awake alert and oriented to person place and situation. Strength was symmetric. MEDICAL DECISION MAKING: The patient is an 81-year-old male who presented to the emergency department for an evaluation for hematuria. He presented from inpatient rehab. I discussed the patient's laboratory and radiographic studies with him. He was found to have significant anemia. He also may have a bladder mass which is the reason for the hematuria. He refused a Santos catheter. EKG was abnormal and troponin was elevated. This might be secondary to the anemia. Ultimately the patient was offered inpatient management as well as possible referral for urology. He was agreeable to inpatient management but does not wish to have a Santos catheter or any procedures. [facility] have agreed to evaluate the patient in the emergency department for further management and disposition. Triage Nursing notes reviewed. Prior medical records reviewed Vital Signs: reviewed and remarkable for hypotension. Differential diagnosis: Testicular torsion, mass, infection, hernia, hydrocele, epididymitis, STI, trauma, intra-abdominal process, as well as other pathologies. ER treatment provided: See below Diagnostics interpreted by me: ECG: EKG was obtained in the emergency department. My interpretation is sinus rhythm at 82 bpm. Low lateral and inferior ST depressions were noted. PVCs were noted. The ST segment abnormalities were new compared to the tracing from July 182020. Cardiac Monitoring: An order was placed for continuous cardiac monitoring. The monitor shows a rate of 83 bpm with sinus rhythm. Laboratory studies: As stated above and show below. Imaging studies: See below Consultation(s): I discussed this case with Sandra [facility] will evaluate the patient in the emergency department. ] Past Med/Surg History Medical History Tobacco user Surgical History Colostomy status History of appendectomy Family History Other Family history unknown Social History Smoking Status: Former smoker Tobacco Type: Cigarettes packs per day: 2; Years Smoked: 50; Cigarettes Per Day: > 2 packs; Hx Alcohol Use: No Hx Substance Use: No Preferred Language: Tajik Communication Ability: Effective Beliefs That Will Affect Care: None marital status: Single Current Living Situation: Alone Feels Safe at Home: Yes Assistive Devices: None Allergies Allergies Allergy/AdvReac Type Severity Reaction Status Date / Time No Known Allergies Allergy Unverified 09/11/21 12:02 Home Meds Home Medications Medication Instructions Recorded Confirmed acetaminophen 325 mg tablet 325 mg PO Q4H 09/11/21 09/11/21 bisacodyl 10 mg rectal suppository 10 mg MS DAILY 09/11/21 09/11/21 docusate sodium 100 mg capsule 100 mg PO BID 09/11/21 09/11/21 heparin (porcine) 5,000 unit/mL 5,000 unit SUBCUT Q12H 09/11/21 09/11/21 injection solution magnesium hydroxide 400 mg/5 mL 30 ml PO DAILY 09/11/21 09/11/21 oral suspension nicotine 21 mg/24 hr daily 1 patch TRANSDERMAL DAILY 09/11/21 09/11/21 transdermal patch polyethylene glycol 3350 17 17 g PO DAILY 09/11/21 09/11/21 gram/dose oral powder sodium phosphates 19 gram-7 133 ml MS DAILY 09/11/21 09/11/21 gram/118 mL enema (Fleet Enema) Results & Data (ED) Vital Signs Vital Signs - 24 hr 09/11/21 11:03 09/11/21 11:06 09/11/21 11:15 Temperature 36.9 C Temperature Source Oral Pulse Rate 89 81 86 Pulse Rate [Apical] Pulse Rate from SpO2 Sensor 83 Pulse Rhythm [Apical] Pulse Strength [Apical] Respiratory Rate 17 16 23 Respiratory Effort / Characteristics Non-Labored Respiratory Depth Normal Blood Pressure 130/63 Blood Pressure [Right Arm] Blood Pressure Mean 85 Blood Pressure Mean [Right Arm] Blood Pressure Position Sitting Pulse Oximetry 99 97 Oxygen Delivery Method Room Air Sepsis Recent Fever Within 48 Hours No Sepsis New/Unexplained Change in Mental Status No Sepsis Action Taken by Nursing No Action Required 09/11/21 11:30 09/11/21 11:45 09/11/21 11:54 Temperature Temperature Source Pulse Rate 89 79 Pulse Rate [Apical] 79 Pulse Rate from SpO2 Sensor 91 H Pulse Rhythm [Apical] Regular Pulse Strength [Apical] Normal Respiratory Rate 24 19 16 Respiratory Effort / Characteristics Non-Labored Respiratory Depth Normal Blood Pressure 128/60 Blood Pressure [Right Arm] 130/57 L Blood Pressure Mean 82 Blood Pressure Mean [Right Arm] 81 Blood Pressure Position Pulse Oximetry 97 97 Oxygen Delivery Method Room Air Sepsis Recent Fever Within 48 Hours Sepsis New/Unexplained Change in Mental Status Sepsis Action Taken by Nursing 09/11/21 12:00 09/11/21 12:15 09/11/21 12:31 Temperature Temperature Source Pulse Rate 81 80 83 Pulse Rate [Apical] Pulse Rate from SpO2 Sensor Pulse Rhythm [Apical] Pulse Strength [Apical] Respiratory Rate 23 21 24 Respiratory Effort / Characteristics Respiratory Depth Blood Pressure 130/57 L Blood Pressure [Right Arm] Blood Pressure Mean 81 Blood Pressure Mean [Right Arm] Blood Pressure Position Pulse Oximetry Oxygen Delivery Method Sepsis Recent Fever Within 48 Hours Sepsis New/Unexplained Change in Mental Status Sepsis Action Taken by Nursing 09/11/21 12:45 09/11/21 13:00 09/11/21 13:30 Temperature Temperature Source Pulse Rate 77 73 Pulse Rate [Apical] Pulse Rate from SpO2 Sensor 76 80 Pulse Rhythm [Apical] Pulse Strength [Apical] Respiratory Rate 15 15 Respiratory Effort / Characteristics Respiratory Depth Blood Pressure 134/59 L 164/64 H Blood Pressure [Right Arm] Blood Pressure Mean 84 97 Blood Pressure Mean [Right Arm] Blood Pressure Position Pulse Oximetry 96 96 Oxygen Delivery Method Sepsis Recent Fever Within 48 Hours Sepsis New/Unexplained Change in Mental Status Sepsis Action Taken by Nursing 09/11/21 13:46 09/11/21 14:00 09/11/21 14:01 Temperature Temperature Source Pulse Rate 80 Pulse Rate [Apical] 88 Pulse Rate from SpO2 Sensor Pulse Rhythm [Apical] Regular Pulse Strength [Apical] Respiratory Rate 16 Respiratory Effort / Characteristics Non-Labored Respiratory Depth Normal Blood Pressure 128/48 L Blood Pressure [Right Arm] 128/48 L Blood Pressure Mean 74 Blood Pressure Mean [Right Arm] 74 Blood Pressure Position Pulse Oximetry 97 Oxygen Delivery Method Room Air Sepsis Recent Fever Within 48 Hours Sepsis New/Unexplained Change in Mental Status Sepsis Action Taken by Nursing 09/11/21 14:18 09/11/21 14:30 09/11/21 14:45 Temperature Temperature Source Pulse Rate 85 88 Pulse Rate [Apical] Pulse Rate from SpO2 Sensor 88 Pulse Rhythm [Apical] Pulse Strength [Apical] Respiratory Rate Respiratory Effort / Characteristics Respiratory Depth Blood Pressure 133/61 Blood Pressure [Right Arm] Blood Pressure Mean 85 Blood Pressure Mean [Right Arm] Blood Pressure Position Pulse Oximetry 97 Oxygen Delivery Method Sepsis Recent Fever Within 48 Hours Sepsis New/Unexplained Change in Mental Status Sepsis Action Taken by Nursing 09/11/21 15:00 09/11/21 15:15 09/11/21 15:30 Temperature Temperature Source Pulse Rate 87 80 74 Pulse Rate [Apical] Pulse Rate from SpO2 Sensor Pulse Rhythm [Apical] Pulse Strength [Apical] Respiratory Rate 15 14 18 Respiratory Effort / Characteristics Respiratory Depth Blood Pressure 141/73 H 150/64 H Blood Pressure [Right Arm] Blood Pressure Mean 95 92 Blood Pressure Mean [Right Arm] Blood Pressure Position Pulse Oximetry 98 Oxygen Delivery Method Sepsis Recent Fever Within 48 Hours Sepsis New/Unexplained Change in Mental Status Sepsis Action Taken by [facility] Medications Current Medication List: was personally reviewed by me Laboratory Data Attestation: I reviewed the patient's lab results. Result diagrams: 09/11/21 20:04 09/11/21 12:02 Lab Results 09/11/21 09/11/21 09/11/21 Range/Units 11:41 12:02 12:02 WBC (4.8-10.8) K/uL RBC (4.7-6.1) M/uL Hgb (14.0-18.0) g/dL Hct (42-52) % MCV (80-100) fL MCH (25-34) pg MCHC (32-36) g/dL RDW Std Deviation (36.4-46.3) fL RDW Coeff of Ramsey (11.5-14.5) % Plt Count (130-400) K/uL MPV (7.4-10.4) fL Immature Gran % (Auto) % Neut % (Auto) % Lymph % (Auto) % [place] % (Auto) % Eos % (Auto) % Baso % (Auto) % Neut # (Auto) (1.4-6.5) K/uL Lymph # (Auto) (1.2-3.4) K/uL [place] # (Auto) (0.11-0.59) K/uL Eos # (Auto) (0-0.5) K/uL Baso # (Auto) (0-0.2) K/uL Immature Gran # (Auto) (0.00-0.02) K/uL PT 10.3 (9.0-12.0) Seconds INR 1.0 (0.9-1.1) APTT 29.9 (21.0-31.0) Seconds PTT Ratio 1.1 Sodium (136-145) mmol/L Potassium (3.5-5.1) mmol/L Chloride (98-107) mmol/L Carbon Dioxide (21-32) mmol/L Anion Gap (3-11) BUN (7-18) mg/dl Creatinine (0.6-1.4) mg/dl Est Cr Clr Drug Dosing ml/min Est GFR ( Amer) ml/min Est GFR (Non-Af Amer) ml/min BUN/Creatinine Ratio (10-20) Glucose (70-99) mg/dl Calcium (8.5-10.1) mg/dl Magnesium (1.8-2.4) mg/dl Total Bilirubin (0.2-1) mg/dl AST (15-37) U/L ALT (12-78) U/L Alkaline Phosphatase (45-117) U/L Total Creatine Kinase (39-308) U/L Troponin I (0-0.045) ng/ml Total Protein (6.4-8.2) gm/dl Albumin (3.4-5.0) gm/dl Globulin (2.5-4.0) gm/dl Albumin/Globulin Ratio (0.9-2) Procalcitonin (0-0.5) ng/ml TSH (0.300-4.500) uIu/ml Urine Color Red Urine Appearance Cloudy A (Clear) Urine pH (4.5-7.5) Ur Specific [place] 1.025 (1.000-1.030) Urine Protein (Negative) Urine Glucose (UA) (Negative) Urine Ketones (Negative) Urine Blood (Negative) Urine Nitrite (Negative) Urine Bilirubin (Negative) Urine Urobilinogen (Negative) Ur Leukocyte Esterase (Negative) Urine RBC >30 H (0-4) /hpf Urine WBC 10-30 H (0-5) /hpf Ur Epithelial Cells 5-10 H (0-5) /lpf Urine Bacteria 1+ H (Negative) COVID-19 Eval Order SARS-CoV-2, RNA, NAAT (NEGATIVE) Blood Type A Positive Antibody Screen NEGATIVE Crossmatch See Detail 09/11/21 09/11/21 09/11/21 Range/Units 12:02 12:02 12:09 WBC 2.16 L (4.8-10.8) K/uL RBC 2.87 L (4.7-6.1) M/uL Hgb 8.5 L (14.0-18.0) g/dL Hct 27.2 L (42-52) % MCV 94.8 (80-100) fL MCH 29.6 (25-34) pg MCHC 31.3 L (32-36) g/dL RDW Std Deviation 55.7 H (36.4-46.3) fL RDW Coeff of Ramsey 16.0 H (11.5-14.5) % Plt Count 195 (130-400) K/uL MPV 10.2 (7.4-10.4) fL Immature Gran % (Auto) 0.0 % Neut % (Auto) 62.1 % Lymph % (Auto) 19.4 % [place] % (Auto) 16.2 % Eos % (Auto) 2.3 % Baso % (Auto) 0.0 % Neut # (Auto) 1.34 L (1.4-6.5) K/uL Lymph # (Auto) 0.42 L (1.2-3.4) K/uL [place] # (Auto) 0.35 (0.11-0.59) K/uL Eos # (Auto) 0.05 (0-0.5) K/uL Baso # (Auto) 0.00 (0-0.2) K/uL Immature Gran # (Auto) 0.00 (0.00-0.02) K/uL PT (9.0-12.0) Seconds INR (0.9-1.1) APTT (21.0-31.0) Seconds PTT Ratio Sodium 141 (136-145) mmol/L Potassium 4.1 (3.5-5.1) mmol/L Chloride 107 (98-107) mmol/L Carbon Dioxide 26 (21-32) mmol/L Anion Gap 8.0 (3-11) BUN 38 H (7-18) mg/dl Creatinine 1.69 H (0.6-1.4) mg/dl Est Cr Clr Drug Dosing 27.1 ml/min Est GFR ( Amer) 43.5 ml/min Est GFR (Non-Af Amer) 37.5 ml/min BUN/Creatinine Ratio 22.7 H (10-20) Glucose 95 (70-99) mg/dl Calcium 8.2 L (8.5-10.1) mg/dl Magnesium 2.2 (1.8-2.4) mg/dl Total Bilirubin 0.2 (0.2-1) mg/dl AST 19 (15-37) U/L ALT 17 (12-78) U/L Alkaline Phosphatase 48 (45-117) U/L Total Creatine Kinase 43 (39-308) U/L Troponin I 0.626 H* (0-0.045) ng/ml Total Protein 6.6 (6.4-8.2) gm/dl Albumin 2.7 L (3.4-5.0) gm/dl Globulin 3.9 (2.5-4.0) gm/dl Albumin/Globulin Ratio 0.7 L (0.9-2) Procalcitonin 0.05 (0-0.5) ng/ml TSH 1.790 (0.300-4.500) uIu/ml Urine Color Urine Appearance (Clear) Urine pH (4.5-7.5) Ur Specific [place] (1.000-1.030) Urine Protein (Negative) Urine Glucose (UA) (Negative) Urine Ketones (Negative) Urine Blood (Negative) Urine Nitrite (Negative) Urine Bilirubin (Negative) Urine Urobilinogen (Negative) Ur Leukocyte Esterase (Negative) Urine RBC (0-4) /hpf Urine WBC (0-5) /hpf Ur Epithelial Cells (0-5) /lpf Urine Bacteria (Negative) COVID-19 Eval Order SARS-CoV-2, RNA, NAAT (NEGATIVE) Blood Type Antibody Screen Crossmatch 09/11/21 09/11/21 Range/Units 12:20 12:20 WBC (4.8-10.8) K/uL RBC (4.7-6.1) M/uL Hgb (14.0-18.0) g/dL Hct (42-52) % MCV (80-100) fL MCH (25-34) pg MCHC (32-36) g/dL RDW Std Deviation (36.4-46.3) fL RDW Coeff of Ramsey (11.5-14.5) % Plt Count (130-400) K/uL MPV (7.4-10.4) fL Immature Gran % (Auto) % Neut % (Auto) % Lymph % (Auto) % [place] % (Auto) % Eos % (Auto) % Baso % (Auto) % Neut # (Auto) (1.4-6.5) K/uL Lymph # (Auto) (1.2-3.4) K/uL [place] # (Auto) (0.11-0.59) K/uL Eos # (Auto) (0-0.5) K/uL Baso # (Auto) (0-0.2) K/uL Immature Gran # (Auto) (0.00-0.02) K/uL PT (9.0-12.0) Seconds INR (0.9-1.1) APTT (21.0-31.0) Seconds PTT Ratio Sodium (136-145) mmol/L Potassium (3.5-5.1) mmol/L Chloride (98-107) mmol/L Carbon Dioxide (21-32) mmol/L Anion Gap (3-11) BUN (7-18) mg/dl Creatinine (0.6-1.4) mg/dl Est Cr Clr Drug Dosing ml/min Est GFR ( Amer) ml/min Est GFR (Non-Af Amer) ml/min BUN/Creatinine Ratio (10-20) Glucose (70-99) mg/dl Calcium (8.5-10.1) mg/dl Magnesium (1.8-2.4) mg/dl Total Bilirubin (0.2-1) mg/dl AST (15-37) U/L ALT (12-78) U/L Alkaline Phosphatase (45-117) U/L Total Creatine Kinase (39-308) U/L Troponin I (0-0.045) ng/ml Total Protein (6.4-8.2) gm/dl Albumin (3.4-5.0) gm/dl Globulin (2.5-4.0) gm/dl Albumin/Globulin Ratio (0.9-2) Procalcitonin (0-0.5) ng/ml TSH (0.300-4.500) uIu/ml Urine Color Urine Appearance (Clear) Urine pH (4.5-7.5) Ur Specific [place] (1.000-1.030) Urine Protein (Negative) Urine Glucose (UA) (Negative) Urine Ketones (Negative) Urine Blood (Negative) Urine Nitrite (Negative) Urine Bilirubin (Negative) Urine Urobilinogen (Negative) Ur Leukocyte Esterase (Negative) Urine RBC (0-4) /hpf Urine WBC (0-5) /hpf Ur Epithelial Cells (0-5) /lpf Urine Bacteria (Negative) COVID-19 Eval Order Covid19 [facility] SARS-CoV-2, RNA, NAAT POSITIVE A* (NEGATIVE) Blood Type Antibody Screen Crossmatch Administered Medications Acetaminophen (Acetaminophen 325 Mg Tab) 325 mg PO Q4H [facility] Stop: 10/11/21 17:59 Last Admin: 09/11/21 19:52 Dose: Not Given Documented by: [id number] Docusate Sodium (Docusate Sodium 100 Mg Cap) 100 mg PO BID [facility] Stop: 10/11/21 20:59 Last Admin: 09/11/21 19:46 Dose: Not Given Documented by: [id number] Sodium Chloride (Nss 1000ml) 1,000 mls @ 75 mls/hr IV .[id number] [facility] Stop: 10/11/21 18:00 Last Admin: 09/11/21 19:46 Dose: 75 mls/hr Documented by: [id number] Ceftriaxone Sodium 1,000 mg/ (Dextrose) 50 mls @ 100 mls/hr IV Q24H [facility]; Protocol Stop: 09/16/21 18:29 Last Infusion: 09/11/21 20:36 Dose: 0 mls/hr Documented by: [id number] Admin: 09/11/21 19:45 Dose: 100 mls/hr Documented by: [id number] Discontinued Medications Sodium Chloride (Nss) 500 mls @ 999 mls/hr IV .Q31M [facility] [place] Stop: 09/11/21 12:15 Last Infusion: 09/11/21 13:16 Dose: 0 mls/hr Documented by: [id number] Admin: 09/11/21 12:12 Dose: 999 mls/hr Documented by: [id number] Imaging Data Radiologist's Impression: Abdomen/Pelvis CT 09/11/21 11:44 CT abd pelvis wo con CLINICAL HISTORY: pain diffuse abdominal pain, hematuria. History of colon cancer. TECHNIQUE: Helical axial images of the abdomen and pelvis were obtained. Automa martita dose lowering techniques and/or adjustment according to patient size were utilized for this exam. This exam was performed without intravenous contrast. COMPARISON: Comparison is made to CT abdomen pelvis 05/20/2015 FINDINGS: Lower chest: Partial visualization of a 22 mm nodule in the left lower lobe which previously measured 18 mm in diameter. Liver: Unremarkable. No focal lesions are seen. Gallbladder and biliary tree: Cholelithiasis is seen without evidence of cholecystitis. No intra- or extrahepatic biliary ductal dilation. Pancreas: Unremarkable, no focal lesions. Spleen: Unremarkable. Adrenals: Unremarkable. Kidneys and ureters: Perinephric stranding is noted bilaterally. The right kidney is atrophic. Multiple nonobstructive stones are seen. Bladder: There is a large amount of hyperdense fluid in the bladder, likely blood. Multiple calculi are seen in the bladder. Reproductive organs: Prostatomegaly is seen. Bowel: Patient is status post colostomy. Lymph nodes Retroperitoneal: Subcentimeter lymph nodes are noted. Mesenteric: Unremarkable. Pelvic: Unremarkable. Peritoneum: Normal Vessels: Atherosclerotic calcifications are seen. Abdominal wall: Unremarkable. Bones: Degenerative changes are seen in the hips and visualized spine. IMPRESSION: 1. Large amount of hyperdensity in the bladder is favored to represent blood, likely new or increased from prior ultrasound, although underlying mass cannot be entirely excluded. Multiple calculi are noted within the bladder, unchanged from prior ultrasound. 2. Large left lung base nodule is minimally increased from 2015. Given its slow growth, it is favored to be benign. 3. Extensive atherosclerotic disease. 4. Additional findings as above. ACT 112: Negative or not required by law. Electronically signed by: Umair Garcia M.D. 09/11/2021 12:55 PM Chest X-Ray 09/11/21 11:45 XR chest 1V portable CLINICAL HISTORY: weakness TECHNIQUE: Single frontal radiograph of the chest was obtained. Comparison: Comparison is made to chest one view 07/17/2021 FINDINGS: No lines and tubes are seen. The cardiomediastinal silhouette is normal. Right upper lobe opacity is again noted. No evidence of pleural effusion or pneumothorax. IMPRESSION: Stable right upper lobe opacity which is favored to represent scarring. No acute abnormalities. ACT 112: Negative or not required by law. Electronically signed by: Umair Garcia M.D. 09/11/2021 12:41 PM Discharge Plan Visit Data Chief Complaint: Hematuria Stated Complaint: HEMATURIA, ABNORMAL LAB ED Provider: Fermin Santiago Discharge Problem: Abnormal EKG, Anemia, Elevated troponin I level, Hematuria, Bladder mass Patient Disposition: Admitted As Inpatient Discharge Instructions Interventions: ED Discharge Assessment Last Done: 09/11/21 18:04 Discharge Problem: Anemia Qualifiers: Anemia type: unspecified type Qualified Code(s): D64.9 - Anemia, unspecified Hematuria Qualifiers: Hematuria type: gross Qualified Code(s): R31.0 - Gross hematuria
[2021-09-11 12:29] LABS: Eosinophils # (auto) 0.05 K/uL (0-0.5); Eosinophils % (auto) 2.3 %; Hematocrit (blood only) 27.2 % (42-52); Hemoglobin 8.5 g/dL (14.0-18.0); Lymphocytes # (auto) 0.42 K/uL (1.2-3.4); Lymphocytes % (auto) 19.4 %; Mean Corpuscular Hemoglobin 29.6 pg (25-34); Mean Corpuscular Hgb Conc 31.3 g/dL (32-36); Mean Corpuscular Volume 94.8 fL (80-100); Mean Platelet Volume 10.2 fL (7.4-10.4); Monocytes # (auto) 0.35 K/uL (0.11-0.59); Monocytes % (auto) 16.2 %; Neutrophils # (auto) 1.34 K/uL (1.4-6.5); Neutrophils % (auto) 62.1 %; Platelet Count 195 K/uL (130-400); RDW Standard Deviation 55.7 fL (36.4-46.3); Red Blood Count 2.87 M/uL (4.7-6.1); White Blood Count 2.16 K/uL (4.8-10.8)
[2021-09-11 12:35] LABS: Partial Thromboplastin Ratio 1.1; Partial Thromboplastin Time 29.9 Seconds (21.0-31.0); Prothrombin Time 10.3 Seconds (9.0-12.0)
[2021-09-11 12:36] LABS: Appearance Urine Cloudy (Clear); Color Urine Red
[2021-09-11 12:43] LABS: Specific Gravity Urine 1.025 (1.000-1.030)
--- NOTE | 2021-09-11 12:43 | XRay Report ---
XR chest 1V portable CLINICAL HISTORY: weakness TECHNIQUE: Single frontal radiograph of the chest was obtained. Comparison: Comparison is made to chest one view 07/17/2021 FINDINGS: No lines and tubes are seen. The cardiomediastinal silhouette is normal. Right upper lobe opacity is again noted. No evidence of pleural effusion or pneumothorax. IMPRESSION: Stable right upper lobe opacity which is favored to represent scarring. No acute abnormalities. ACT 112: Negative or not required by law. Electronically signed by: Umair Garcia M.D. 09/11/2021 12:41 PM
[2021-09-11 12:45] LABS: Albumin Level 2.7 gm/dl (3.4-5.0); BUN Creatinine Ratio 22.7 (10-20); Calcium 8.2 mg/dl (8.5-10.1); Creatinine Clr Calc Pharmacy 27.1 ml/min; Est GFR (African American) 43.5 ml/min; Est GFR (Non-African American) 37.5 ml/min; Magnesium 2.2 mg/dl (1.8-2.4); Potassium 4.1 mmol/L (3.5-5.1)
--- NOTE | 2021-09-11 12:56 | CT Scan Report ---
CT abd pelvis wo con CLINICAL HISTORY: pain diffuse abdominal pain, hematuria. History of colon cancer. TECHNIQUE: Helical axial images of the abdomen and pelvis were obtained. Automated dose lowering tech niques and/or adjustment according to patient size were utilized for this exam. This exam was perfor med without intravenous contrast. COMPARISON: Comparison is made to CT abdomen pelvis 05/20/2015 FINDINGS: Lower chest: Partial visualization of a 22 mm nodule in the left lower lobe which previously measure d 18 mm in diameter. Liver: Unremarkable. No focal lesions are seen. Gallbladder and biliary tree: Cholelithiasis is seen without evidence of cholecystitis. No intra- or extrahepatic biliary ductal dilation. Pancreas: Unremarkable, no focal lesions. Spleen: Unremarkable. Adrenals: Unremarkable. Kidneys and ureters: Perinephric stranding is noted bilaterally. The right kidney is atrophic. Multip le nonobstructive stones are seen. Bladder: There is a large amount of hyperdense fluid in the bladder, likely blood. Multiple calculi a re seen in the bladder. Reproductive organs: Prostatomegaly is seen. Bowel: Patient is status post colostomy. Lymph nodes Retroperitoneal: Subcentimeter lymph nodes are noted. Mesenteric: Unremarkable. Pelvic: Unremarkable. Peritoneum: Normal Vessels: Atherosclerotic calcifications are seen. Abdominal wall: Unremarkable. Bones: Degenerative changes are seen in the hips and visualized spine. IMPRESSION: 1. Large amount of hyperdensity in the bladder is favored to represent blood, likely new or increase d from prior ultrasound, although underlying mass cannot be entirely excluded. Multiple calculi are n oted within the bladder, unchanged from prior ultrasound. 2. Large left lung base nodule is minimally increased from 2015. Given its slow growth, it is favore d to be benign. 3. Extensive atherosclerotic disease. 4. Additional findings as above. ACT 112: Negative or not required by law. Electronically signed by: Umair Garcia M.D. 09/11/2021 12:55 PM
[2021-09-11 13:01] LABS: Albumin Globulin Ratio 0.7 (0.9-2); Bilirubin,Total 0.2 mg/dl (0.2-1); Globulin 3.9 gm/dl (2.5-4.0); Thyroid Stimulating Hormone 1.79 uIu/ml (0.300-4.500); Total Protein 6.6 gm/dl (6.4-8.2); Troponin I 0.626 ng/ml (0-0.045)
[2021-09-11 13:01] LABS: RBC Urine >30 /hpf (0-4)
[2021-09-11 13:02] LABS: Bacteria Urine 1+ (Negative)
--- NOTE | 2021-09-11 14:25 | History & Physical Report ---
Date of Service September 11, 2021 Assessment & Plan (1) Hematuria: Plan: -Admit to [facility] with telemetry -Urology consulted for hematuria -Trend H&H every 8 -Type and cross, blood consent to be obtained by attending physician while seeing the patient at bedside-transfuse if actively bleeding and hemoglobin less than 8, currently 8.5, keep 2 units PRBCs on hold -While at [facility] was on heparin subcu twice daily, will hold, not on any other formal anticoagulation -Rocephin IV for possible UTI, follow urine culture, UA appears infected, patient denies urinary symptoms (2) Elevated troponin I level: Plan: -Troponin elevated at 0.626, trend x2 more sets -EKG reviewed, minimal changes compared to previous, no ACS concern as the patient does not endorse any cardiac symptoms, repeat EKG tomorrow morning -Likely demand ischemia with hemoglobin of 8.5 on admission (3) Failure to thrive: Plan: -History of such, patient has been at [facility] x1 month, case management to assist with placement -Office of aging currently participating in getting guardianship of him, has next hearing on October 07, patient is likely to remain hospitalized until that timeframe unless other developments in his hearing come to fruition. (4) Malnutrition: Plan: -Patient reports eating and drinking without difficulty, encourage protein supplementation with daily boost (5) COVID-19: Plan: -Positive on admission, no respiratory complaints, otherwise asymptomatic -Continue isolation precautions, [facility], their facility has been made aware of serology results. (6) Anemia: Plan: -Baseline hemoglobin around 10, currently 8.5, as above - teds, scds CODE: Full code Dispo: From home, likely to remain in the hospital x 1-2 days History of Present Illness Primary Care Provider: NO PCP This is an 81-year-old male who has history of colostomy, anemia, malnutrition, significant tobacco abuse, who was recently admitted at the end of June for MARICRUZ and rhabdomyolysis after sustained a fall at home, and was [facility] for failure to thrive. [facility] due to hematuria which has been ongoing for 2 days per nursing. Pt reports " it comes and goes sometimes", but is unable to answer my questions about how long this has been ongoing. He denies both pain with urination and increased frequency. Denies lightheadedness of dizziness. No chest pain or shortness of breath. Since being in the ER pt had refused a rodarte catheter but states that he is agreeable if needed. He has been walking without issues and participating with PT/OT. He is eating and drinking well. Denies any other acute complaints. Pt friend, Renee to be called if he needs assistance. Patient is noted to have a hemoglobin of 8.5 with new possible bladder hematoma vs mass seen on imaging. Troponin is elevated 0.626, EKG changes and is found to be Covid positive on admission. Pt was being evaluated by the office of aging, and has a hearing scheduled for October 07. [facility] was not aware that the patient was Covid positive and they have been contacted/notified. Allergies Allergy/AdvReac Type Severity Reaction Status Date / Time No Known Allergies Allergy Unverified 09/11/21 12:02 Home Medications Medication Instructions Recorded Confirmed Type acetaminophen 325 mg tablet 325 mg PO Q4H 09/11/21 09/11/21 History bisacodyl 10 mg rectal suppository 10 mg ND DAILY 09/11/21 09/11/21 History docusate sodium 100 mg capsule 100 mg PO BID 09/11/21 09/11/21 History heparin (porcine) 5,000 unit/mL 5,000 unit SUBCUT Q12H 09/11/21 09/11/21 History injection solution magnesium hydroxide 400 mg/5 mL 30 ml PO DAILY 09/11/21 09/11/21 History oral suspension nicotine 21 mg/24 hr daily 1 patch TRANSDERMAL DAILY 09/11/21 09/11/21 History transdermal patch polyethylene glycol 3350 17 17 g PO DAILY 09/11/21 09/11/21 History gram/dose oral powder sodium phosphates 19 gram-7 133 ml ND DAILY 09/11/21 09/11/21 History gram/118 mL enema (Fleet Enema) Past Med/Surg History Medical History Tobacco user Surgical History Colostomy status History of appendectomy Family History Other Family history unknown Social History Smoking Status: Former smoker Tobacco Type: Cigarettes packs per day: 2; Years Smoked: 50; Cigarettes Per Day: > 2 packs; Hx Alcohol Use: No Hx Substance Use: No Preferred Language: Urugu[place] Communication Ability: Effective Beliefs That Will Affect Care: None marital status: Single Current Living Situation: Alone Feels Safe at Home: Yes Assistive Devices: None Review of Systems Review of Systems: Constitutional: No fever, sweats or chills Eyes: No diplopia, no worsening or blurred vision ENT: normal hearing, no trouble swallowing Respiratory: No cough, sputum, dyspnea at rest or on exertion Cardiovascular: No chest pain, tightness or palpitations Abdomen: No pain, nausea, vomiting, diarrhea or constipation Musculoskeletal: No joint pain, calf pain, swelling : Hematuria as per HPI Neurologic: No weakness, numbness/tingling, or balance problems, does not use assistive device with ambulation Psychiatric: No anxiety or depression Skin: No rash or itch Physical Exam Physical Exam: Please refer to attending physical as I did not see the patient in person due to being COVID-19 positive. Results & Data Results & Data ([facility]) Vital Signs (Past 12 Hours) Vital Signs Temp Pulse Pulse Resp BP BP Pulse Ox 09/11/21 11:54 79 16 130/57 L 97 09/11/21 11:06 36.9 C 81 16 130/63 99 Laboratory Results Microbiology 09/11/21 11:41 Urine,Clean Catch Urine Culture - Pending Labs 09/11/21 09/11/21 09/11/21 11:41 12:02 12:02 WBC RBC Hgb Hct MCV MCH MCHC RDW Std Deviation RDW Coeff of Ramsey Plt Count MPV Immature Gran % (Auto) Neut % (Auto) Lymph % (Auto) [place] % (Auto) Eos % (Auto) Baso % (Auto) Neut # (Auto) Lymph # (Auto) [place] # (Auto) Eos # (Auto) Baso # (Auto) Immature Gran # (Auto) PT 10.3 INR 1.0 APTT 29.9 PTT Ratio 1.1 Sodium Potassium Chloride Carbon Dioxide Anion Gap BUN Creatinine Est Cr Clr Drug Dosing Est GFR ( Amer) Est GFR (Non-Af Amer) BUN/Creatinine Ratio Glucose Calcium Magnesium Total Bilirubin AST ALT Alkaline Phosphatase Total Creatine Kinase Troponin I Total Protein Albumin Globulin Albumin/Globulin Ratio TSH Urine Color Red Urine Appearance Cloudy A Urine pH Ur Specific [place] 1.025 Urine Protein Urine Glucose (UA) Urine Ketones Urine Blood Urine Nitrite Urine Bilirubin Urine Urobilinogen Ur Leukocyte Esterase Urine RBC >30 H Urine WBC 10-30 H Ur Epithelial Cells 5-10 H Urine Bacteria 1+ H COVID-19 Eval Order SARS-CoV-2, RNA, NAAT Blood Type A Positive Antibody Screen NEGATIVE 09/11/21 09/11/21 09/11/21 12:02 12:02 12:20 WBC 2.16 L RBC 2.87 L Hgb 8.5 L Hct 27.2 L MCV 94.8 MCH 29.6 MCHC 31.3 L RDW Std Deviation 55.7 H RDW Coeff of Ramsey 16.0 H Plt Count 195 MPV 10.2 Immature Gran % (Auto) 0.0 Neut % (Auto) 62.1 Lymph % (Auto) 19.4 [place] % (Auto) 16.2 Eos % (Auto) 2.3 Baso % (Auto) 0.0 Neut # (Auto) 1.34 L Lymph # (Auto) 0.42 L [place] # (Auto) 0.35 Eos # (Auto) 0.05 Baso # (Auto) 0.00 Immature Gran # (Auto) 0.00 PT INR APTT PTT Ratio Sodium 141 Potassium 4.1 Chloride 107 Carbon Dioxide 26 Anion Gap 8.0 BUN 38 H Creatinine 1.69 H Est Cr Clr Drug Dosing 27.1 Est GFR ( Amer) 43.5 Est GFR (Non-Af Amer) 37.5 BUN/Creatinine Ratio 22.7 H Glucose 95 Calcium 8.2 L Magnesium 2.2 Total Bilirubin 0.2 AST 19 ALT 17 Alkaline Phosphatase 48 Total Creatine Kinase 43 Troponin I 0.626 H* Total Protein 6.6 Albumin 2.7 L Globulin 3.9 Albumin/Globulin Ratio 0.7 L TSH 1.790 Urine Color Urine Appearance Urine pH Ur Specific [place] Urine Protein Urine Glucose (UA) Urine Ketones Urine Blood Urine Nitrite Urine Bilirubin Urine Urobilinogen Ur Leukocyte Esterase Urine RBC Urine WBC Ur Epithelial Cells Urine Bacteria COVID-19 Eval Order Covid19 [facility] SARS-CoV-2, RNA, NAAT Blood Type Antibody Screen 09/11/21 12:20 WBC RBC Hgb Hct MCV MCH MCHC RDW Std Deviation RDW Coeff of Ramsey Plt Count MPV Immature Gran % (Auto) Neut % (Auto) Lymph % (Auto) [place] % (Auto) Eos % (Auto) Baso % (Auto) Neut # (Auto) Lymph # (Auto) [place] # (Auto) Eos # (Auto) Baso # (Auto) Immature Gran # (Auto) PT INR APTT PTT Ratio Sodium Potassium Chloride Carbon Dioxide Anion Gap BUN Creatinine Est Cr Clr Drug Dosing Est GFR ( Amer) Est GFR (Non-Af Amer) BUN/Creatinine Ratio Glucose Calcium Magnesium Total Bilirubin AST ALT Alkaline Phosphatase Total Creatine Kinase Troponin I Total Protein Albumin Globulin Albumin/Globulin Ratio TSH Urine Color Urine Appearance Urine pH Ur Specific [place] Urine Protein Urine Glucose (UA) Urine Ketones Urine Blood Urine Nitrite Urine Bilirubin Urine Urobilinogen Ur Leukocyte Esterase Urine RBC Urine WBC Ur Epithelial Cells Urine Bacteria COVID-19 Eval Order SARS-CoV-2, RNA, NAAT POSITIVE A* Blood Type Antibody Screen Diagnostic Findings Abdomen/Pelvis CT 09/11/21 11:44 CT abd pelvis wo con CLINICAL HISTORY: pain diffuse abdominal pain, hematuria. History of colon cancer. TECHNIQUE: Helical axial images of the abdomen and pelvis were obtained. Automated dose lowering techniques and/or adjustment according to patient size were utilized for this exam. This exam was performed without intravenous contrast. COMPARISON: Comparison is made to CT abdomen pelvis 05/20/2015 FINDINGS: Lower chest: Partial visualization of a 22 mm nodule in the left lower lobe which previously measured 18 mm in diameter. Liver: Unremarkable. No focal lesions are seen. Gallbladder and biliary tree: Cholelithiasis is seen without evidence of cholecystitis. No intra- or extrahepatic biliary ductal dilation. Pancreas: Unremarkable, no focal lesions. Spleen: Unremarkable. Adrenals: Unremarkable. Kidneys and ureters: Perinephric stranding is noted bilaterally. The right kidney is atrophic. Multiple nonobstructive stones are seen. Bladder: There is a large amount of hyperdense fluid in the bladder, likely blood. Multiple calculi are seen in the bladder. Reproductive organs: Prostatomegaly is seen. Bowel: Patient is status post colostomy. Lymph nodes Retroperitoneal: Subcentimeter lymph nodes are noted. Mesenteric: Unremarkable. Pelvic: Unremarkable. Peritoneum: Normal Vessels: Atherosclerotic calcifications are seen. Abdominal wall: Unremarkable. Bones: Degenerative changes are seen in the hips and visualized spine. IMPRESSION: 1. Large amount of hyperdensity in the bladder is favored to represent blood, likely new or increased from prior ultrasound, although underlying mass cannot be entirely excluded. Multiple calculi are noted within the bladder, unchanged from prior ultrasound. 2. Large left lung base nodule is minimally increased from 2015. Given its slow growth, it is favored to be benign. 3. Extensive atherosclerotic disease. 4. Additional findings as above. ACT 112: Negative or not required by law. Electronically signed by: Umari Garcia M.D. 09/11/2021 12:55 PM Chest X-Ray 09/11/21 11:45 XR chest 1V portable CLINICAL HISTORY: weakness TECHNIQUE: Single frontal radiograph of the chest was obtained. Comparison: Comparison is made to chest one view 07/17/2021 FINDINGS: No lines and tubes are seen. The cardiomediastinal silhouette is normal. Right upper lobe opacity is again noted. No evidence of pleural effusion or pneumothorax. IMPRESSION: Stable right upper lobe opacity which is favored to represent scarring. No acute abnormalities. ACT 112: Negative or not required by law. Electronically signed by: Umair Garcia M.D. 09/11/2021 12:41 PM ECG Additional Comments: 11-SEP-2021 11:54:07 [facility]-EDSTAT ROUTINE RETRIEVAL Sinus rhythm with occasional Premature ventricular complexes Otherwise normal ECG When compared with ECG of 18-JUL-2021 10:27, Premature ventricular complexes are now Present Nonspecific T wave abnormality no longer evident in Lateral leads 25mm/s 10mm/mV 150Hz 9.0.9 12SL 241 RICHARD: 3 Unconfirmed Vent. rate 82 BPM ND interval 146 ms QRS duration 84 ms QT/QTc 392/457 ms Code Status & VTE Plan Code Status Full code-discussed with the patient Supervising Physician Co-Signing Physician Notes Patient is an 81-year-old male with history of colostomy, tobacco use disorder, CKD, failure to thrive and other medical problems presents from rehab facility with hematuria since 2 days duration. Patient is a poor historian. He denies any abdominal pain, nausea, vomiting, chest pain, dyspnea. He refused Rodarte catheter placement while in ED. His hemoglobin dropped to 8.5 from baseline. Was noted to have troponin elevation at 0.62. Urine analysis suggestive of possible UTI. He was tested positive for Covid while in ED but saturating well on room air. Physical Exam: Vitals signs as noted above General Appearance: Thin, frail, chronically appearing no apparent distress Head: normocephalic, Atraumatic Eyes: normal inspection, EOMI Neck: supple, Trachea midline Respiratory/Chest: Decreased breath sounds, CTA, No accessory muscle use Cardiovascular: S1, S2, + murmur Abdomen/GI:Soft, Mild suprapubic tender, Bowel sounds present Extremities/Musculoskeletal:normal inspection, no edema Neurologic/Psych:AAOX3, grossly no focal neurological deficits Skin: normal color, warm Hematuria In setting of SQ heparin use while at rehab facility Imaging studies reviewed Patient refused Rodarte catheter placement Will need cystolitholapaxy and possible TURBT if patient accepts as per Urology Appreciate urology input Monitor H&H and transfuse PRBCs as needed Bladder scan every shift Possible urinary tract infection Agree with empiric Rocephin Troponin elevation likely secondary to Covid infection No indication for treatment given saturating well on room air I personally reviewed the record. Patient is interviewed and examined at bedside. Patient's care is coordinated with Sophy Groves PA-C. Please refer to the documentation above for details of patient's presentation and for discussion of other issues. (1) Hematuria Hematuria type: gross Qualified Code(s): R31.0 - Gross hematuria (2) Anemia Anemia type: unspecified type Qualified Code(s): D64.9 - Anemia, unspecified
--- NOTE | 2021-09-11 16:43 | Urology Consultation ---
Date of Consultation September 11, 2021 Assessment & Plan (1) Hematuria: (2) Bladder stone: 81-year-old male admitted due to reported hematuria and abdominal pain. CT scan shows hyperdense material representing large blood clot or mass along with numerous bladder calculi. Patient is Covid positive and was initially refusing catheter. I opted to speak with him over the phone at first to determine if he would allow us to care for him. He was counseled on the risks and benefits of having a Rodarte catheter placed and complications if he avoided care. At the end of the discussion, he still refused Rodarte catheter. Therefore, I will not see him in person as this will not change any of his care and just puts more people at exposure of Covid. Urology is available at any time to place a catheter if the patient desires. He was made acutely aware of the risks of not having a catheter placed. This plan was communicated with Sophy Groves. Urology to follow peripherally. Please contact if patient agrees to rodarte catheter. He will ultimately need cystolithalopaxy with possible TURBT in the future if he is agreeable. History of Present Illness Reason for Consultation: Hematuria History of Present Illness 81-year-old male who was sent over from rehab facility due to reported hematuria and difficulty urinating with abdominal pain. Review of chart shows hemodynamically stable. Labs show a hemoglobin of 8.5 with a previous value of 10 on 07/19/2021. Creatinine of 1.69 which is roughly his baseline. Troponins were elevated at 0.626. Urinalysis was reported as red with greater than 30 RBCs, 10-30 WBCs and 1+ bacteria. CT scan shows large amount of hyperdense material in the bladder which could represent blood or mass. Previous renal ul trasound on 07/17/2021 did not show any obvious mass in the bladder so this favors hematuria on today's scan. Multiple calculi noted in the bladder as well. The patient refused a Rodarte catheter in the emergency department. He was admitted to the medicine team and urology was consulted. Patient of note is Covid positive. Due to patient being Covid positive and refusing catheter, I called the nurse first and asked to speak with the patient over the phone before exposing myself to him if he in fact would not allow us to take care of him. I discussed the patient's symptoms and he responded no to hematuria, difficulty urinating or abdominal pain. I reviewed his CT scan with him and told him I was concerned there was either blood or mass in the the bladder along with stones. I advised that he should have a Rodarte catheter placed and have the bladder irrigated. If he did not agree to this, he is at risk for worsening urinary symptoms, retention or possible bladder rupture. I advised that he would likely need a cystoscopy under anesthesia at some point. He does have a significant smoking history. After all of this discussion, the patient still refused a Rodarte catheter. I advised that we were available if he would like our assistance in the future. Allergies Allergy/AdvReac Type Severity Reaction Status Date / Time No Known Allergies Allergy Unverified 09/11/21 12:02 Home Medications Medication Instructions Recorded Confirmed Type acetaminophen 325 mg tablet 325 mg PO Q4H 09/11/21 09/11/21 History bisacodyl 10 mg rectal suppository 10 mg OR DAILY 09/11/21 09/11/21 History docusate sodium 100 mg capsule 100 mg PO BID 09/11/21 09/11/21 History heparin (porcine) 5,000 unit/mL 5,000 unit SUBCUT Q12H 09/11/21 09/11/21 History injection solution magnesium hydroxide 400 mg/5 mL 30 ml PO DAILY 09/11/21 09/11/21 History oral suspension nicotine 21 mg/24 hr daily 1 patch TRANSDERMAL DAILY 09/11/21 09/11/21 History transdermal patch polyethylene glycol 3350 17 17 g PO DAILY 09/11/21 09/11/21 History gram/dose oral powder sodium phosphates 19 gram-7 133 ml OR DAILY 09/11/21 09/11/21 History gram/118 mL enema (Fleet Enema) Patient History Medical History Tobacco user Surgical History Colostomy status History of appendectomy Family History Other Family history unknown Social History Smoking Status: Former smoker Tobacco Type: Cigarettes packs per day: 2; Years Smoked: 50; Cigarettes Per Day: > 2 packs; Hx Alcohol Use: No Hx Substance Use: No Preferred Language: Czech Communication Ability: Effective Beliefs That Will Affect Care: None marital status: Single Current Living Situation: Alone Feels Safe at Home: Yes Assistive Devices: None Review of Systems Review of Systems: 14 point review of systems negative outside of what is listed above in HPI Physical Exam Physical Exam: Unable to perform as evaluation was over the phone due to Covid positive patient and refusal of urologic care Results & Data ([facility]) Vital Signs (Past 12 Hours) Vital Signs Temp Pulse Pulse Resp BP BP Pulse Ox 09/11/21 15:30 74 18 150/64 H 98 09/11/21 15:15 80 14 09/11/21 15:00 87 15 141/73 H 09/11/21 14:45 88 97 09/11/21 14:30 133/61 09/11/21 14:18 85 09/11/21 14:01 128/48 L 09/11/21 14:00 88 16 128/48 L 97 09/11/21 13:46 80 09/11/21 13:30 164/64 H 09/11/21 13:00 73 15 134/59 L 96 09/11/21 12:45 77 15 96 09/11/21 12:31 83 24 09/11/21 12:15 80 21 09/11/21 12:00 81 23 130/57 L 09/11/21 11:54 79 16 130/57 L 97 09/11/21 11:45 79 19 09/11/21 11:30 89 24 128/60 97 09/11/21 11:15 86 23 97 09/11/21 11:06 36.9 C 81 16 130/63 99 09/11/21 11:03 89 17 PG Care Time/CCT Total # of Minutes Spent Total Time Spent with Patient: Total time spent is greater than 50% in coordination of care (as documented) at patient's floor/unit and/or counseling patient: [place] [address] Inpt Consult Level 2 Patient Type New Diagnoses Hematuria R31.0 Hematuria type: gross Bladder stone N21.0 (1) Hematuria Hematuria type: gross Qualified Code(s): R31.0 - Gross hematuria
[2021-09-11] MEDS ORDERED: ONDANSETRON INJ 2 MG/ML 2 ML VIAL IV PRN (18:01)
[2021-09-11] MEDS ORDERED: SODIUM CHLORIDE 0.9% 250 ML IV PRN (18:01)
[2021-09-11] MEDS: cefTRIAXone SODIUM 1,000 MG in DEXTROSE 5% 50 ML IV SCH (19:45)
[2021-09-11] MEDS: DOCUSATE SODIUM 100 MG CAP PO SCH (19:46)
[2021-09-11] MEDS: SODIUM CHLORIDE 0.9% 1000ML 1,000 ML IV SCH (19:46)
[2021-09-11] MEDS: ACETAMINOPHEN 325 MG TAB PO SCH ×3 (19:46→21:52)
[2021-09-11 20:18] LABS: Hematocrit (blood only) 25.4 % (42-52)
[2021-09-12] MEDS: ACETAMINOPHEN 325 MG TAB PO SCH ×6 (01:35→21:05)
[2021-09-12 04:42] LABS: Hematocrit (blood only) 23.7 % (42-52); Hemoglobin 7.4 g/dL (14.0-18.0); Mean Corpuscular Hemoglobin 29.5 pg (25-34); Mean Corpuscular Hgb Conc 31.2 g/dL (32-36); Mean Corpuscular Volume 94.4 fL (80-100); Mean Platelet Volume 10.1 fL (7.4-10.4); Platelet Count 174 K/uL (130-400); RDW Coefficient of Variation 15.8 % (11.5-14.5); RDW Standard Deviation 54.5 fL (36.4-46.3); Red Blood Count 2.51 M/uL (4.7-6.1); White Blood Count 1.78 K/uL (4.8-10.8)
[2021-09-12 05:00] LABS: Albumin Level 2.4 gm/dl (3.4-5.0); Est GFR (African American) 41.4 ml/min; Est GFR (Non-African American) 35.7 ml/min; Potassium 4.2 mmol/L (3.5-5.1)
[2021-09-12 05:13] LABS: Albumin Globulin Ratio 0.7 (0.9-2); Bilirubin,Total 0.2 mg/dl (0.2-1); Globulin 3.5 gm/dl (2.5-4.0); Total Protein 5.9 gm/dl (6.4-8.2); Troponin I 0.413 ng/ml (0-0.045)
[2021-09-12] MEDS ORDERED: SODIUM CHLORIDE 0.9% 250 ML IV PRN ×2 (06:27→11:30)
[2021-09-12] MEDS ORDERED: LIDOCAINE 2% JELLY 5 ML TUBE ONE (08:10)
[2021-09-12] MEDS: DOCUSATE SODIUM 100 MG CAP PO SCH ×2 (10:30→19:36)
[2021-09-12] MEDS: POLYETHYLENE (MIRALAX) 17 GM PACK PO SCH (10:30)
[2021-09-12] MEDS: NICOTINE 21 MG/24 HR TDSY TD SCH (10:30)
[2021-09-12] MEDS: MAGNESIUM HYDROXIDE SUSP 30 ML UDC PO SCH (10:30)
[2021-09-12 12:23] LABS: Hematocrit (blood only) 24.6 % (42-52); Hemoglobin 7.7 g/dL (14.0-18.0)
[2021-09-12] MEDS ORDERED: MoRPHine SULFATE 2 MG/ML CARP ONE (13:11)
[2021-09-12] MEDS ORDERED: MoRPHine SULFATE 2 MG/ML CARP IV PRN (13:32)
--- NOTE | 2021-09-12 18:20 | Electrocardiogram Report ---
Test Reason : Blood Pressure : / mmHG Vent. Rate : 082 BPM Atrial Rate : 082 BPM P-R Int : 146 ms QRS Dur : 084 ms QT Int : 392 ms P-R-T Axes : 078 066 065 degrees QTc Int : 457 ms Sinus rhythm with occasional Premature ventricular complexes Otherwise normal ECG When compared with ECG of 18-JUL-2021 10:27, Premature ventricular complexes are now Present Confirmed by Matt Menendez ([id number]) on 09/12/2021 6:19:45 PM Referred By: Confirmed By:Matt Menendez
--- NOTE | 2021-09-12 18:32 | Hospitalist Progress Note ---
Date of Service September 12, 2021 Assessment & Plan (1) Hematuria: Plan: Hematuria Bladder calculi ? Bladder mass Cannot rule out malignancy --Large amount of hyperdensity in the bladder is favored to represent blood, likely new or increased from prior ultrasound, although underlying mass cannot be entirely excluded. Multiple calculi are noted within the bladder, unchanged from prior ultrasound. -S/P 2 units PRBCs -Appreciate urology input High risk for any procedures Continue Santos catheter and irrigate as needed IV fluids Empirically continue IV Rocephin Monitor H&H Urology to consider CBI, cystoscopy and possible TURBT if necessary Abnormal urinalysis Suspected UTI Urine culture negative (2) Elevated troponin I level: Plan: -Troponin elevated likely secondary to Covid vs demand ischemia Echo showed no focal wall motion abnormality Patient denies chest pain Troponin levels trended down ACS less likely Large left lung base nodule Which is increased from prior imaging in 2015 Follow-up as outpatient (3) Failure to thrive: Plan: Office of aging involved Court assigned Legal guardian for medical decision making guardian, Elizabeth Mota (ph #[phone]) Case management following (4) Malnutrition: Plan: Severe protein calorie malnutrition BMI 17 (5) COVID-19: Plan: -Positive on admission No respiratory complaints Saturating on room air (6) Anemia: Plan: Acute on chronic blood loss anemia Transfuse as needed Monitor CBC DVT Px: SCDs CODE STATUS: Full code Admission and Anticipated Discharge Date Admission Date: September 11, 2021 Subjective Patient is seen and examined at bedside Patient had persistent hematuria Poor historian Denies any chest pain, shortness of breath, abdominal pain, dizziness Discussed with urology today Review of Systems Review of Systems: All systems reviewed & are unremarkable except as noted in Subjective Physical Exam Physical Exam: Physical Exam: Vitals signs as noted above General Appearance: Thin, frail, chronically appearing no apparent distress Head: normocephalic, Atraumatic Eyes: normal inspection, EOMI Neck: supple, Trachea midline Respiratory/Chest: Decreased breath sounds, CTA, No accessory muscle use Cardiovascular: S1, S2, + murmur Abdomen/GI:Soft, + Colostomy, non tender, Bowel sounds present Extremities/Musculoskeletal:normal inspection, no edema Neurologic/Psych:AAOX3, grossly no focal neurological deficits Skin: normal color, warm Results & Data Results & Data ([facility]) Vital Signs (Past 12 Hours) Vital Signs Temp Pulse Pulse Resp BP BP Pulse Ox 09/12/21 16:57 37 C 96 H 18 155/86 H 96 09/12/21 16:27 36.9 C 90 16 160/95 H 96 09/12/21 16:12 36.8 C 70 16 138/56 L 95 09/12/21 15:56 37 C 81 16 128/63 96 09/12/21 15:53 81 16 128/63 96 09/12/21 15:35 36.7 C 79 18 144/56 H 97 09/12/21 15:05 36.8 C 79 16 133/53 L 98 09/12/21 14:05 37 C 94 H 20 111/65 98 09/12/21 13:35 37 C 88 18 137/58 L 97 09/12/21 13:20 36.9 C 77 18 142/68 H 98 09/12/21 13:00 37 C 90 16 146/74 H 98 09/12/21 11:26 36.8 C 82 19 127/56 L 98 09/12/21 07:06 36.9 C 81 18 117/51 L 95 Laboratory Results Short CBC 09/11/21 09/12/21 09/12/21 Range/Units 20:04 04:15 12:05 WBC 1.78 L (4.8-10.8) K/uL Hgb 8.0 L 7.4 L 7.7 L (14.0-18.0) g/dL Hct 25.4 L 23.7 L 24.6 L (42-52) % Plt Count 174 (130-400) K/uL BMP 09/12/21 04:15 Sodium 141 Potassium 4.2 Chloride 109 H Carbon Dioxide 28 BUN 40 H Creatinine 1.76 H Glucose 89 Calcium 8.0 L Cardiac Enzymes 09/11/21 09/12/21 Range/Units 20:04 04:15 Troponin I 0.446 H* 0.413 H* (0-0.045) ng/ml Liver Function 09/12/21 Range/Units 04:15 Total Bilirubin 0.2 (0.2-1) mg/dl AST 17 (15-37) U/L ALT 15 (12-78) U/L Alkaline Phosphatase 43 L (45-117) U/L Albumin 2.4 L (3.4-5.0) gm/dl (1) Hematuria Hematuria type: gross Qualified Code(s): R31.0 - Gross hematuria (2) Anemia Anemia type: unspecified type Qualified Code(s): D64.9 - Anemia, unspecified
[2021-09-12] MEDS: SODIUM CHLORIDE 0.9% 1000ML 1,000 ML IV SCH ×2 (18:38→22:06)
[2021-09-12] MEDS: cefTRIAXone SODIUM 1,000 MG in DEXTROSE 5% 50 ML IV SCH (18:45)
[2021-09-12 20:48] LABS: Hematocrit (blood only) 30.6 % (42-52); Hemoglobin 9.8 g/dL (14.0-18.0)
[2021-09-12] MEDS ORDERED: OLANZapine 10 MG/2.1 ML SDV IM PRN (22:02)
[2021-09-12] MEDS: PHENAZOPYRIDINE HCL 100 MG TAB PO PRN (22:32)
[2021-09-13] MEDS: ACETAMINOPHEN 325 MG TAB PO SCH ×5 (01:42→20:58)
[2021-09-13] MEDS: HYDROmorphone INJ 0.5 MG/0.5 ML SYR IV PRN (04:19)
[2021-09-13] MEDS: traMADol HCL 50 MG TABLET PO PRN (07:24)
[2021-09-13 07:49] LABS: Albumin Level 2.2 gm/dl (3.4-5.0); BUN Creatinine Ratio 21.5 (10-20); Calcium 7.7 mg/dl (8.5-10.1); Est GFR (African American) 47.2 ml/min; Est GFR (Non-African American) 40.7 ml/min; Potassium 3.8 mmol/L (3.5-5.1)
[2021-09-13 07:52] LABS: Albumin Globulin Ratio 0.6 (0.9-2); Bilirubin,Total 0.3 mg/dl (0.2-1); Globulin 3.4 gm/dl (2.5-4.0); Total Protein 5.6 gm/dl (6.4-8.2)
[2021-09-13 09:19] LABS: Hematocrit (blood only) 33.5 % (42-52); Hemoglobin 10.1 g/dL (14.0-18.0); Mean Corpuscular Volume 96.3 fL (80-100); Mean Platelet Volume 10.9 fL (7.4-10.4); Platelet Count 155 K/uL (130-400); RDW Coefficient of Variation 16.1 % (11.5-14.5); RDW Standard Deviation 56.7 fL (36.4-46.3); Red Blood Count 3.48 M/uL (4.7-6.1); White Blood Count 2.96 K/uL (4.8-10.8)
[2021-09-13 09:20] LABS: Mean Corpuscular Hgb Conc 30.1 g/dL (32-36)
[2021-09-13] MEDS: SODIUM CHLORIDE 0.9% 1000ML 1,000 ML IV SCH (11:40)
[2021-09-13 12:10] LABS: Hematocrit (blood only) 29.8 % (42-52); Hemoglobin 9.6 g/dL (14.0-18.0)
[2021-09-13] MEDS: DOCUSATE SODIUM 100 MG CAP PO SCH ×2 (16:08→20:58)
[2021-09-13] MEDS: NICOTINE 21 MG/24 HR TDSY TD SCH (16:08)
[2021-09-13] MEDS: MAGNESIUM HYDROXIDE SUSP 30 ML UDC PO SCH (16:08)
[2021-09-13] MEDS: POLYETHYLENE (MIRALAX) 17 GM PACK PO SCH (16:08)
[2021-09-13] MEDS: cefTRIAXone SODIUM 1,000 MG in DEXTROSE 5% 50 ML IV SCH (18:18)
--- NOTE | 2021-09-13 19:21 | Hospitalist Progress Note ---
Date of Service September 13, 2021 Assessment & Plan (1) Hematuria: Plan: Hematuria Bladder calculi ? Bladder mass Cannot rule out malignancy --Large amount of hyperdensity in the bladder is favored to represent blood, likely new or increased from prior ultrasound, although underlying mass cannot be entirely excluded. Multiple calculi are noted within the bladder, unchanged from prior ultrasound. -S/P 2 units PRBCs -Appreciate urology input High risk for any procedures Continue Santos catheter and irrigate as needed Continue IV fluids Empirically continue IV Rocephin Monitor H&H Urology to consider CBI, cystoscopy and possible TURBT if necessary Hb:9.6 today Abnormal urinalysis Suspected UTI--Ruled out Urine culture negative (2) Elevated troponin I level: Plan: -Troponin elevated likely secondary to Covid vs demand ischemia Echo showed no focal wall motion abnormality Patient denies chest pain Troponin levels trended down ACS less likely Large left lung base nodule Which is increased from prior imaging in 2015 Follow-up as outpatient (3) Failure to thrive: Plan: Office of aging involved Court assigned Legal guardian for medical decision making guardian, Elizabeth Mota ( #[phone]) Case management following (4) Malnutrition: Plan: Severe protein calorie malnutrition BMI 17 (5) COVID-19: Plan: -Positive on admission No respiratory complaints Saturating on room air (6) Anemia: Plan: Acute on chronic blood loss anemia Transfuse as needed Monitor CBC DVT Px: SCDs CODE STATUS: Full code Admission and Anticipated Discharge Date Admission Date: September 11, 2021 Subjective Patient is seen and examined at bedside Continues to have hematuria Very poor oral intake Denies any significant abdominal pain Denies any chest pain, shortness of breath, abdominal pain, dizziness Review of Systems Review of Systems: All systems reviewed & are unremarkable except as noted in Subjective Physical Exam Physical Exam: Physical Exam: Vitals signs as noted above General Appearance: Thin, frail, chronically appearing no apparent distress Head: normocephalic, Atraumatic Eyes: normal inspection, EOMI Neck: supple, Trachea midline Respiratory/Chest: Decreased breath sounds, CTA, No accessory muscle use Cardiovascular: S1, S2, + murmur Abdomen/GI:Soft, + Colostomy, non tender, Bowel sounds present Extremities/Musculoskeletal:normal inspection, no edema Neurologic/Psych:AAOX3, grossly no focal neurological deficits Skin: normal color, warm Results & Data Results & Data ([facility]) Vital Signs (Past 12 Hours) Vital Signs Temp Pulse Resp BP Pulse Ox 09/13/21 19:12 36.7 C 83 18 134/56 L 94 09/13/21 16:01 36.6 C 80 15 151/63 H 93 09/13/21 11:45 36.9 C 76 16 143/58 H 92 Laboratory Results Short CBC 09/12/21 09/13/21 09/13/21 Range/Units 20:26 06:57 07:38 WBC Cancelled 2.96 L Hgb 9.8 L Cancelled 10.1 L (14.0-18.0) g/dL Hct 30.6 L Cancelled 33.5 L (42-52) % Plt Count Cancelled 155 09/13/21 Range/Units 11:48 WBC Hgb 9.6 L (14.0-18.0) g/dL Hct 29.8 L (42-52) % Plt Count BMP 09/13/21 06:57 Sodium 141 Potassium 3.8 Chloride 111 H Carbon Dioxide 22 BUN 34 H Creatinine 1.58 H Glucose 77 Calcium 7.7 L Liver Function 09/13/21 Range/Units 06:57 Total Bilirubin 0.3 (0.2-1) mg/dl AST 18 (15-37) U/L ALT 13 (12-78) U/L Alkaline Phosphatase 41 L (45-117) U/L Albumin 2.2 L (3.4-5.0) gm/dl (1) Hematuria Hematuria type: gross Qualified Code(s): R31.0 - Gross hematuria (2) Anemia Anemia type: unspecified type Qualified Code(s): D64.9 - Anemia, unspecified
[2021-09-13 20:58] LABS: Hematocrit (blood only) 31.4 % (42-52); Hemoglobin 9.9 g/dL (14.0-18.0)
[2021-09-14] MEDS: SODIUM CHLORIDE 0.9% 1000ML 1,000 ML IV SCH ×2 (02:07→14:30)
[2021-09-14] MEDS: ACETAMINOPHEN 325 MG TAB PO SCH ×6 (03:04→23:57)
[2021-09-14] MEDS: HYDROmorphone INJ 0.5 MG/0.5 ML SYR IV PRN ×2 (04:57→14:29)
[2021-09-14 06:40] LABS: Hematocrit (blood only) 30.1 % (42-52); Hemoglobin 9.6 g/dL (14.0-18.0)
[2021-09-14 07:16] LABS: Est GFR (African American) 51.5 ml/min; Est GFR (Non-African American) 44.4 ml/min
[2021-09-14] MEDS: traMADol HCL 50 MG TABLET PO PRN (07:39)
[2021-09-14] MEDS: POLYETHYLENE (MIRALAX) 17 GM PACK PO SCH (09:54)
[2021-09-14] MEDS: NICOTINE 21 MG/24 HR TDSY TD SCH (09:54)
[2021-09-14] MEDS: MAGNESIUM HYDROXIDE SUSP 30 ML UDC PO SCH (09:54)
[2021-09-14] MEDS: DOCUSATE SODIUM 100 MG CAP PO SCH ×2 (09:54→23:57)
[2021-09-14] MEDS ORDERED: CHLORASEPTIC 1.4% SOLN 180 ML BTL MT PRN (17:09)
--- NOTE | 2021-09-14 18:10 | Hospitalist Progress Note ---
Date of Service September 14, 2021 Assessment & Plan (1) Hematuria: Plan: Hematuria Bladder calculi ? Bladder mass Cannot rule out malignancy --Large amount of hyperdensity in the bladder is favored to represent blood, likely new or increased from prior ultrasound, although underlying mass cannot be entirely excluded. Multiple calculi are noted within the bladder, unchanged from prior ultrasound. -S/P 2 units PRBCs -Appreciate urology input High risk for any procedures Continue Santos catheter and irrigate as needed Continue IV fluids Empirically continue IV Rocephin Monitor H&H Urology to consider CBI, cystoscopy and possible TURBT if necessary Hb:9.6 today NPO after midnight for possible procedure Hb stable Abnormal urinalysis Suspected UTI--Ruled out Urine culture negative (2) Elevated troponin I level: Plan: -Troponin elevated likely secondary to Covid vs demand ischemia Echo showed no focal wall motion abnormality Patient denies chest pain Troponin levels trended down ACS less likely Large left lung base nodule Which is increased from prior imaging in 2015 Follow-up as outpatient (3) Failure to thrive: Plan: Office of aging involved Court assigned Legal guardian for medical decision making guardian, Nerybailey Mota ( #[phone]) Case management following (4) Malnutrition: Plan: Severe protein calorie malnutrition BMI 17 (5) COVID-19: Plan: -Positive on admission No respiratory complaints Saturating on room air (6) Anemia: Plan: Acute on chronic blood loss anemia Transfuse as needed Monitor CBC DVT Px: SCDs Re: Hematuria CODE STATUS: Full code Admission and Anticipated Discharge Date Admission Date: September 11, 2021 Subjective Patient is seen and examined at bedside States having a sore throat Very poor oral intake Persistent hematuria Denies any chest pain, shortness of breath, abdominal pain, dizziness Poor historian Review of Systems Review of Systems: All systems reviewed & are unremarkable except as noted in Subjective Physical Exam Physical Exam: Physical Exam: Vitals signs as noted above General Appearance: Thin, frail, chronically appearing no apparent distress Head: normocephalic, Atraumatic Eyes: normal inspection, EOMI Neck: supple, Trachea midline Respiratory/Chest: Decreased breath sounds, CTA, No accessory muscle use Cardiovascular: S1, S2, + murmur Abdomen/GI:Soft, + Colostomy, non tender, Bowel sounds present Extremities/Musculoskeletal:normal inspection, no edema Neurologic/Psych:AAOX3, grossly no focal neurological deficits Skin: normal color, warm Results & Data Results & Data ([facility]) Vital Signs (Past 12 Hours) Vital Signs Temp Pulse Resp BP Pulse Ox 09/14/21 15:17 36.9 C 90 19 127/69 90 09/14/21 11:05 36.3 C L 83 20 138/70 90 09/14/21 08:00 90 09/14/21 07:06 37.3 C 87 19 132/50 L 90 Laboratory Results Short CBC 09/13/21 09/14/21 Range/Units 20:40 06:12 Hgb 9.9 L 9.6 L (14.0-18.0) g/dL Hct 31.4 L 30.1 L (42-52) % BMP 09/14/21 06:12 Creatinine 1.47 H (1) Hematuria Hematuria type: gross Qualified Code(s): R31.0 - Gross hematuria (2) Anemia Anemia type: unspecified type Qualified Code(s): D64.9 - Anemia, unspecified
[2021-09-14] MEDS: cefTRIAXone SODIUM 1,000 MG in DEXTROSE 5% 50 ML IV SCH (18:19)
[2021-09-15] MEDS: ACETAMINOPHEN 325 MG TAB PO SCH ×6 (04:03→22:21)
[2021-09-15] MEDS: SODIUM CHLORIDE 0.9% 1000ML 1,000 ML IV SCH ×2 (05:05→16:37)
[2021-09-15] MEDS: HYDROmorphone INJ 0.5 MG/0.5 ML SYR IV PRN ×2 (05:06→23:22)
[2021-09-15 06:21] LABS: Hematocrit (blood only) 30.1 % (42-52); Hemoglobin 9.6 g/dL (14.0-18.0)
[2021-09-15 06:51] LABS: BUN Creatinine Ratio 19.9 (10-20); Calcium 8.2 mg/dl (8.5-10.1); Creatinine Clr Calc Pharmacy 32.9 ml/min; Est GFR (African American) 46.8 ml/min; Est GFR (Non-African American) 40.4 ml/min; Potassium 4.3 mmol/L (3.5-5.1)
[2021-09-15] MEDS: POLYETHYLENE (MIRALAX) 17 GM PACK PO SCH (07:44)
[2021-09-15] MEDS: MAGNESIUM HYDROXIDE SUSP 30 ML UDC PO SCH (07:44)
[2021-09-15] MEDS: DOCUSATE SODIUM 100 MG CAP PO SCH ×3 (07:44→22:21)
[2021-09-15] MEDS: NICOTINE 21 MG/24 HR TDSY TD SCH (09:56)
[2021-09-15] MEDS: METOPROLOL TARTRATE 25 MG TAB PO SCH ×2 (11:24→19:54)
[2021-09-15] MEDS: traMADol HCL 50 MG TABLET PO PRN ×2 (13:21→19:53)
[2021-09-15] MEDS: cefTRIAXone SODIUM 1,000 MG in DEXTROSE 5% 50 ML IV SCH (18:31)
--- NOTE | 2021-09-15 19:59 | Hospitalist Progress Note ---
Date of Service September 15, 2021 Assessment & Plan (1) Hematuria: Plan: Hematuria Bladder calculi ? Bladder mass Cannot rule out malignancy --Large amount of hyperdensity in the bladder is favored to represent blood, likely new or increased from prior ultrasound, although underlying mass cannot be entirely excluded. Multiple calculi are noted within the bladder, unchanged from prior ultrasound. -S/P 2 units PRBCs -Appreciate urology input High risk for any procedures Continue Santos catheter and irrigate as needed Continue IV fluids Empirically continue IV Rocephin Monitor H&H Urology to consider CBI, cystoscopy and possible TURBT if necessary Continue to irrigate catheter Hemoglobin 9.6 NSVT Started on metoprolol Continue to monitor Abnormal urinalysis Suspected UTI--Ruled out Urine culture negative (2) Elevated troponin I level: Plan: -Troponin elevated likely secondary to Covid vs demand ischemia Echo showed no focal wall motion abnormality Patient denies chest pain Troponin levels trended down ACS less likely Large left lung base nodule Which is increased from prior imaging in 2015 Follow-up as outpatient (3) Failure to thrive: Plan: Office of aging involved Court assigned Legal guardian for medical decision making guardian, Nerybailey Mota ( #[phone]) Case management following (4) Malnutrition: Plan: Severe protein calorie malnutrition BMI 17 (5) COVID-19: Plan: -Positive on admission No respiratory complaints Saturating on room air (6) Anemia: Plan: Acute on chronic blood loss anemia Transfuse as needed Monitor CBC DVT Px: SCDs Re: Hematuria CODE STATUS: Full code Admission and Anticipated Discharge Date Admission Date: September 11, 2021 Subjective Patient is seen and examined at bedside RN informed patient having issues with dysphagia Discussed with urologist today Continues to have hematuria Had 13 beats of V. tach on monitor Febrile this morning Oral intake remains poor States having abdominal discomfort Denies any chest pain, shortness of breath, dizziness Poor historian Review of Systems Review of Systems: All systems reviewed & are unremarkable except as noted in Subjective Physical Exam Physical Exam: Physical Exam: Vitals signs as noted above General Appearance: Thin, frail, chronically appearing no apparent distress Head: normocephalic, Atraumatic Eyes: normal inspection, EOMI Neck: supple, Trachea midline Respiratory/Chest: Decreased breath sounds, CTA, No accessory muscle use Cardiovascular: S1, S2, + murmur Abdomen/GI:Soft, + Colostomy, non tender, Bowel sounds present Extremities/Musculoskeletal:normal inspection, no edema Neurologic/Psych:AAOX3, grossly no focal neurological deficits Skin: normal color, warm Results & Data Results & Data ([facility]) Vital Signs (Past 12 Hours) Vital Signs Temp Pulse Pulse Pulse Resp BP BP 09/15/21 19:52 36.7 C 84 105/62 09/15/21 18:59 73 14 129/59 L 09/15/21 15:16 37.2 C 85 18 136/63 09/15/21 11:41 37.4 C 92 H 18 125/57 L 09/15/21 08:00 94 H Pulse Ox 09/15/21 19:52 09/15/21 18:59 92 09/15/21 15:16 95 09/15/21 11:41 91 09/15/21 08:00 Laboratory Results Short CBC 09/15/21 Range/Units 06:05 Hgb 9.6 L (14.0-18.0) g/dL Hct 30.1 L (42-52) % BMP 09/15/21 06:05 Sodium 142 Potassium 4.3 Chloride 111 H Carbon Dioxide 25 BUN 32 H Creatinine 1.59 H Glucose 94 Calcium 8.2 L (1) Hematuria Hematuria type: gross Qualified Code(s): R31.0 - Gross hematuria (2) Anemia Anemia type: unspecified type Qualified Code(s): D64.9 - Anemia, unspecified
[2021-09-16] MEDS: ACETAMINOPHEN 325 MG TAB PO SCH ×6 (02:10→20:54)
[2021-09-16] MEDS: SODIUM CHLORIDE 0.9% 1000ML 1,000 ML IV SCH ×2 (06:32→20:58)
[2021-09-16] MEDS: HYDROmorphone INJ 0.5 MG/0.5 ML SYR IV PRN (06:33)
[2021-09-16 07:49] LABS: Hematocrit (blood only) 26.4 % (42-52); Hemoglobin 8.4 g/dL (14.0-18.0); Mean Corpuscular Hemoglobin 29.6 pg (25-34); Mean Corpuscular Hgb Conc 31.8 g/dL (32-36); Mean Platelet Volume 10.6 fL (7.4-10.4); Platelet Count 210 K/uL (130-400); RDW Coefficient of Variation 15.5 % (11.5-14.5); RDW Standard Deviation 53.1 fL (36.4-46.3); Red Blood Count 2.84 M/uL (4.7-6.1); White Blood Count 6.09 K/uL (4.8-10.8)
[2021-09-16] MEDS: METOPROLOL TARTRATE 25 MG TAB PO SCH ×2 (08:18→20:55)
[2021-09-16 08:19] LABS: Creatinine Clr Calc Pharmacy 35.9 ml/min; Est GFR (African American) 51.1 ml/min; Est GFR (Non-African American) 44.1 ml/min; Magnesium 2.1 mg/dl (1.8-2.4); Potassium 5.1 mmol/L (3.5-5.1)
[2021-09-16] MEDS: DOCUSATE SODIUM 100 MG CAP PO SCH ×2 (08:29→20:56)
[2021-09-16] MEDS: NICOTINE 21 MG/24 HR TDSY TD SCH (08:29)
[2021-09-16] MEDS: MAGNESIUM HYDROXIDE SUSP 30 ML UDC PO SCH (08:33)
[2021-09-16] MEDS: POLYETHYLENE (MIRALAX) 17 GM PACK PO SCH (08:33)
[2021-09-16] MEDS: traMADol HCL 50 MG TABLET PO PRN ×3 (11:33→22:49)
--- NOTE | 2021-09-16 11:45 | Urology Progress Note ---
Date of Service September 16, 2021 Assessment & Plan (1) Bladder stone: (2) Hematuria: Plan: 81-year-old male who was admitted due to hematuria with a CT scan showing large clot burden and numerous large bladder stones Plan: Recommend continued CBI and wean as indicated. Urine is currently light pink on slow drip. Nursing can irrigate as needed. Recommend prophylactic antibiotics with either Ancef or Bactrim while on CBI. Due to social status and current Covid infection, ideal goal would be to have patient discharged with Santos catheter and come back to clinic to discuss procedure. Procedure would likely entail first diagnostic cystoscopy to rule out any bladder mass. If bleeding is just from stones, then would likely proceed with open cystolithotomy due to numerous stones and there respective sizes. If he has a bladder tumor, he would then require very long procedure for cystolitholopaxy and TURBT. Transfuse as needed per primary team. Urine consistency currently not concerning for serious hemorrhage. Urology to follow peripherally. Available to help with catheter. Goal to get patient discharged back home with catheter in place. Admission and Anticipated Discharge Date Admission Date: September 11, 2021 Subjective Patient seen at bedside his hospitalist reached out and stated he was placed on CBI overnight. Patient currently has no complaints. CBI is on a slow drip draining light pink urine. Nursing irrigated what sounds like significant old blood clot out last night. No issues with CBI becoming obstructed so far. Discussed with patient that if he desires, will likely need procedure to treat bladder stones and evaluate for hematuria in the future. Review of Systems Review of Systems: 14 point review of systems negative outside of what is listed above in HPI Physical Exam Physical Exam: General: Alert and oriented, no acute distress HEENT: Normocephalic, mucous membranes moist Cardiovascular: Regular rate Pulmonary: Nonlabored respirations Abdomen: Nondistended : Three-way catheter draining light pink urine on slow drip Extremities: Moves all 4 spontaneously Neuro: No gross deficits Skin: Warm, dry, no rashes noted Results & Data ([facility]) Vital Signs (Past 12 Hours) Vital Signs Temp Pulse Resp BP Pulse Ox 09/16/21 11:17 36.3 C L 60 18 114/52 L 93 09/16/21 06:42 36.5 C 76 17 120/63 94 09/16/21 03:06 36.4 C L 80 17 117/57 L 95 PG Care Time/CCT Total # of Minutes Spent Total Time Spent with Patient: Total time spent is greater than 50% in coordination of care (as documented) at patient's floor/unit and/or counseling patient: [place] [address] Subseq Hosp Care Lvl 2 Patient Type Established Diagnoses Bladder stone N21.0 Hematuria R31.0 Hematuria type: gross (1) Hematuria Hematuria type: gross Qualified Code(s): R31.0 - Gross hematuria
--- NOTE | 2021-09-16 17:15 | Hospitalist Progress Note ---
Date of Service September 16, 2021 Assessment & Plan (1) Hematuria: Plan: Hematuria Bladder calculi ? Bladder mass Cannot rule out malignancy --Large amount of hyperdensity in the bladder is favored to represent blood, likely new or increased from prior ultrasound, although underlying mass cannot be entirely excluded. Multiple calculi are noted within the bladder, unchanged from prior ultrasound. -S/P 2 units PRBCs -Appreciate urology input High risk for any procedures Continue Santos catheter and irrigate as needed Continue IV fluids Empirically continue IV Rocephin Started on continuous bladder irrigation Monitor CBC Continue prophylactic antibiotics as per urology while on CBI Will eventually need cystoscopy to rule out bladder mass. Transfuse PRBCs as needed NSVT Continue metoprolol Continue to monitor Abnormal urinalysis Suspected UTI--Ruled out Urine culture negative (2) Elevated troponin I level: Plan: -Troponin elevated likely secondary to Covid vs demand ischemia Echo showed no focal wall motion abnormality Patient denies chest pain Troponin levels trended down ACS less likely Large left lung base nodule Which is increased from prior imaging in 2015 Follow-up as outpatient (3) Failure to thrive: Plan: Office of aging involved Court assigned Legal guardian for medical decision making guardian, Elizabeth Mota ( #[phone]) Case management following (4) Malnutrition: Plan: Severe protein calorie malnutrition BMI 17 (5) COVID-19: Plan: -Positive on admission No respiratory complaints Saturating on room air (6) Anemia: Plan: Acute on chronic blood loss anemia Transfuse as needed Monitor CBC DVT Px: SCDs Re: Hematuria CODE STATUS: Full code Admission and Anticipated Discharge Date Admission Date: September 11, 2021 Subjective Patient is seen and examined at bedside Better oral intake today On continuous bladder irrigation Discussed with urology today No recurrence of tachyarrhythmias States having abdominal discomfort Denies any chest pain, shortness of breath, dizziness Poor historian Review of Systems Review of Systems: All systems reviewed & are unremarkable except as noted in Subjective Physical Exam Physical Exam: Physical Exam: Vitals signs as noted above General Appearance: Thin, frail, chronically appearing no apparent distress Head: normocephalic, Atraumatic Eyes: normal inspection, EOMI Neck: supple, Trachea midline Respiratory/Chest: Decreased breath sounds, CTA, No accessory muscle use Cardiovascular: S1, S2, + murmur Abdomen/GI:Soft, + Colostomy, non tender, Bowel sounds present Extremities/Musculoskeletal:normal inspection, no edema Neurologic/Psych:AAOX3, grossly no focal neurological deficits Skin: normal color, warm Results & Data Results & Data ([facility]) Vital Signs (Past 12 Hours) Vital Signs Temp Pulse Pulse Pulse Resp BP Pulse Ox 09/16/21 15:44 36.4 C L 71 17 124/63 95 09/16/21 11:17 36.3 C L 60 18 114/52 L 93 09/16/21 08:00 78 09/16/21 06:42 36.5 C 76 17 120/63 94 Laboratory Results Short CBC 09/16/21 Range/Units 07:17 WBC 6.09 (4.8-10.8) K/uL Hgb 8.4 L (14.0-18.0) g/dL Hct 26.4 L (42-52) % Plt Count 210 (130-400) K/uL BMP 09/16/21 07:17 Sodium 144 Potassium 5.1 D Chloride 114 H Carbon Dioxide 24 BUN 36 H Creatinine 1.48 H Glucose 89 Calcium 8.0 L (1) Hematuria Hematuria type: gross Qualified Code(s): R31.0 - Gross hematuria (2) Anemia Anemia type: unspecified type Qualified Code(s): D64.9 - Anemia, unspecified
[2021-09-16] MEDS: cefTRIAXone SODIUM 1,000 MG in DEXTROSE 5% 50 ML IV SCH (18:12)
[2021-09-16 20:39] LABS: Hematocrit (blood only) 24.5 % (42-52); Hemoglobin 7.7 g/dL (14.0-18.0)
[2021-09-17] MEDS: HYDROmorphone INJ 0.5 MG/0.5 ML SYR IV PRN ×2 (00:44→23:32)
[2021-09-17] MEDS: PHENAZOPYRIDINE HCL 100 MG TAB PO PRN (00:44)
[2021-09-17] MEDS: ACETAMINOPHEN 325 MG TAB PO SCH ×6 (03:16→21:39)
[2021-09-17] MEDS: traMADol HCL 50 MG TABLET PO PRN ×3 (06:18→19:43)
[2021-09-17 08:26] LABS: Hematocrit (blood only) 23.2 % (42-52); Hemoglobin 7.2 g/dL (14.0-18.0); Mean Corpuscular Hemoglobin 28.9 pg (25-34); Mean Corpuscular Volume 93.2 fL (80-100); Mean Platelet Volume 10.4 fL (7.4-10.4); Platelet Count 204 K/uL (130-400); RDW Coefficient of Variation 15.5 % (11.5-14.5); RDW Standard Deviation 52.8 fL (36.4-46.3); Red Blood Count 2.49 M/uL (4.7-6.1); White Blood Count 4.35 K/uL (4.8-10.8)
[2021-09-17] MEDS: NICOTINE 21 MG/24 HR TDSY TD SCH (08:45)
[2021-09-17] MEDS: METOPROLOL TARTRATE 25 MG TAB PO SCH ×2 (08:45→21:40)
[2021-09-17] MEDS: MAGNESIUM HYDROXIDE SUSP 30 ML UDC PO SCH (08:45)
[2021-09-17] MEDS: POLYETHYLENE (MIRALAX) 17 GM PACK PO SCH (08:49)
[2021-09-17] MEDS: DOCUSATE SODIUM 100 MG CAP PO SCH ×2 (08:49→21:39)
[2021-09-17 09:04] LABS: BUN Creatinine Ratio 25.5 (10-20); Calcium 8.1 mg/dl (8.5-10.1); Creatinine Clr Calc Pharmacy 38.7 ml/min; Est GFR (African American) 56.1 ml/min; Est GFR (Non-African American) 48.4 ml/min; Potassium 4.3 mmol/L (3.5-5.1)
[2021-09-17] MEDS: SODIUM CHLORIDE 0.9% 1000ML 1,000 ML IV SCH (09:52)
--- NOTE | 2021-09-17 13:27 | Hospitalist Progress Note ---
Date of Service September 17, 2021 Assessment & Plan (1) Hematuria: Plan: Hematuria Bladder calculi ? Bladder mass Cannot rule out malignancy --Large amount of hyperdensity in the bladder is favored to represent blood, likely new or increased from prior ultrasound, although underlying mass cannot be entirely excluded. Multiple calculi are noted within the bladder, unchanged from prior ultrasound. -S/P 2 units PRBCs Has been evaluated by urology. Recommendations noted High risk for any procedures Stop IV fluids for now since patient is taking orally. Empirically continue IV Rocephin nephrology recommendation Continue continuous bladder irrigation Hemoglobin has been trending down slowly. Monitor CBC this afternoon Will eventually need cystoscopy to rule out bladder mass. Transfuse PRBCs as needed NSVT Continue metoprolol Continue to monitor Abnormal urinalysis Suspected UTI--Ruled out Urine culture negative (2) Elevated troponin I level: Plan: Troponin elevated likely secondary to Covid vs demand ischemia Echo showed no focal wall motion abnormality Patient denies chest pain Troponin levels trended down ACS less likely Large left lung base nodule Which is increased from prior imaging in 2015 Follow-up as outpatient (3) Failure to thrive: Plan: Office of aging involved Court assigned Legal guardian for medical decision making guardian, Elizabeth Nakul ( #[phone]) Case management following (4) Malnutrition: Plan: Severe protein calorie malnutrition BMI 17 (5) COVID-19: Plan: Positive on admission No respiratory complaints Saturating on room air (6) Anemia: Plan: Acute on chronic blood loss anemia Transfuse as needed Monitor CBC DVT Px: SCDs Re: Hematuria CODE STATUS: Full code Admission and Anticipated Discharge Date Admission Date: September 11, 2021 Subjective 81-year-old man with history of colostomy, anemia, malnutrition, tobacco abuse, recent MARICRUZ and rhabdomyolysis after a fall at home and who was discharged to [facility] for failure to thrive who presented from [facility] for hematuria that has been ongoing for 2 days. Patient currently on CBI. According to RN, patient required irrigation overnight due to Santos being occluded. Continues to have bloody urine in Santos. Hemoglobin has been downtrending slowly Denies any dizziness, headache Denies any shortness of breath, palpitations Denies any chest pain, cough. Denies any fevers, nausea, vomiting, diarrhea. Physical Exam Constitutional: + well hydrated; no acute distress Chronic ill-looking thin elderly man Eyes: PERRL, conjunctivae normal, anicteric sclerae ENMT: external ear and nose normal, oropharynx normal Respiratory: Not in respiratory distress, CTA Cardiovascular: Below return rhythm Systolic ejection murmur Gastrointestinal (Abdomen): normal bowel sounds, soft, nontender, no hepatosplenomegaly Colostomy bag in situ Musculoskeletal: No pedal edema. Neurologic: PERRL, EOMI, accommodation nl, no face palsy, no dysarthria Psychiatric: A+Ox3, euthymic affect Results & Data Results & Data ([facility]) Vital Signs (Past 12 Hours) Vital Signs Temp Pulse Resp BP Pulse Ox 09/17/21 11:18 36.3 C L 72 18 130/56 L 92 09/17/21 03:19 36.4 C L 78 18 149/64 H 98 Laboratory Results Abnormal lab results 09/16/21 09/17/21 09/17/21 Range/Units 20:08 07:50 07:50 WBC 4.35 L (4.8-10.8) K/uL RBC 2.49 L (4.7-6.1) M/uL Hgb 7.7 L 7.2 L (14.0-18.0) g/dL Hct 24.5 L 23.2 L (42-52) % MCHC 31.0 L (32-36) g/dL RDW Std Deviation 52.8 H (36.4-46.3) fL RDW Coeff of Ramsey 15.5 H (11.5-14.5) % Sodium 146 H (136-145) mmol/L Chloride 116 H (98-107) mmol/L BUN 35 H (7-18) mg/dl BUN/Creatinine Ratio 25.5 H (10-20) Glucose 101 H (70-99) mg/dl Calcium 8.1 L (8.5-10.1) mg/dl (1) Hematuria Hematuria type: gross Qualified Code(s): R31.0 - Gross hematuria (2) Anemia Anemia type: unspecified type Qualified Code(s): D64.9 - Anemia, unspecified
[2021-09-17 14:15] LABS: Hematocrit (blood only) 23.6 % (42-52); Hemoglobin 7.4 g/dL (14.0-18.0); Mean Corpuscular Hemoglobin 28.9 pg (25-34); Mean Corpuscular Hgb Conc 31.4 g/dL (32-36); Mean Corpuscular Volume 92.2 fL (80-100); Mean Platelet Volume 10.7 fL (7.4-10.4); Platelet Count 210 K/uL (130-400); RDW Coefficient of Variation 15.2 % (11.5-14.5); RDW Standard Deviation 51.8 fL (36.4-46.3); Red Blood Count 2.56 M/uL (4.7-6.1); White Blood Count 4.68 K/uL (4.8-10.8)
[2021-09-17] MEDS: cefTRIAXone SODIUM 1,000 MG in DEXTROSE 5% 50 ML IV SCH (18:04)
[2021-09-18] MEDS: ACETAMINOPHEN 325 MG TAB PO SCH ×4 (01:07→13:57)
[2021-09-18] MEDS: PHENAZOPYRIDINE HCL 100 MG TAB PO PRN (01:08)
[2021-09-18] MEDS: NICOTINE 21 MG/24 HR TDSY TD SCH (09:34)
[2021-09-18] MEDS: METOPROLOL TARTRATE 25 MG TAB PO SCH (09:36)
[2021-09-18] MEDS: MAGNESIUM HYDROXIDE SUSP 30 ML UDC PO SCH (10:05)
[2021-09-18] MEDS: DOCUSATE SODIUM 100 MG CAP PO SCH (10:05)
[2021-09-18] MEDS: POLYETHYLENE (MIRALAX) 17 GM PACK PO SCH (10:06)
[2021-09-18 13:49] LABS: Hematocrit (blood only) 23.8 % (42-52); Hemoglobin 7.5 g/dL (14.0-18.0); Mean Corpuscular Hemoglobin 29.1 pg (25-34); Mean Corpuscular Hgb Conc 31.5 g/dL (32-36); Mean Corpuscular Volume 92.2 fL (80-100); Mean Platelet Volume 10.7 fL (7.4-10.4); Platelet Count 276 K/uL (130-400); RDW Coefficient of Variation 15.5 % (11.5-14.5); RDW Standard Deviation 52.7 fL (36.4-46.3); Red Blood Count 2.58 M/uL (4.7-6.1); White Blood Count 6.81 K/uL (4.8-10.8)
[2021-09-18 14:03] LABS: Prothrombin Time 10.2 Seconds (9.0-12.0)
[2021-09-18 14:15] LABS: Calcium 8.6 mg/dl (8.5-10.1); Creatinine Clr Calc Pharmacy 31.2 ml/min; Est GFR (African American) 43.2 ml/min; Est GFR (Non-African American) 37.3 ml/min; Potassium 4.5 mmol/L (3.5-5.1)
[2021-09-18] MEDS ORDERED: NORMOSOL-R 1,000 ML IV SCH (14:45)
--- NOTE | 2021-09-18 15:32 | Hospitalist Progress Note ---
Date of Service September 18, 2021 Assessment & Plan (1) Hematuria: Plan: Hematuria Bladder calculi ? Bladder mass Cannot rule out malignancy --Large amount of hyperdensity in the bladder is favored to represent blood, likely new or increased from prior ultrasound, although underlying mass cannot be entirely excluded. Multiple calculi are noted within the bladder, unchanged from prior ultrasound. -S/P 2 units PRBCs Has been evaluated by urology. Recommendations noted High risk for any procedures Cr increased to 1.7 today Encouraged po fluid intake Give maintenance IVF and monitor Empirically continue IV Rocephin nephrology recommendation Continue continuous bladder irrigation Hemoglobin stable in 7s in the past 24h Will eventually need cystoscopy to rule out bladder mass. Transfuse PRBCs as needed NSVT Continue metoprolol Continue to monitor Abnormal urinalysis Suspected UTI--Ruled out Urine culture negative (2) Elevated troponin I level: Plan: Troponin elevated likely secondary to Covid vs demand ischemia Echo showed no focal wall motion abnormality Patient denies chest pain Troponin levels trended down ACS less likely Large left lung base nodule Which is increased from prior imaging in 2015 Follow-up as outpatient (3) Failure to thrive: Plan: Office of aging involved Court assigned Legal guardian for medical decision making guardian, Elizabeth Mota ( #[phone]) Case management following (4) Malnutrition: Plan: Severe protein calorie malnutrition BMI 17 (5) COVID-19: Plan: Positive on admission No respiratory complaints Saturating on room air (6) Anemia: Plan: Acute on chronic blood loss anemia Transfuse as needed Monitor CBC DVT Px: SCDs Re: Hematuria CODE STATUS: Full code Admission and Anticipated Discharge Date Admission Date: September 11, 2021 Subjective 81-year-old man with history of colostomy, anemia, malnutrition, tobacco abuse, recent MARICRUZ and rhabdomyolysis after a fall at home and who was discharged to [facility] for failure to thrive who presented from [facility] for hematuria that has been ongoing for 2 days. Patient still on CBI. Continues to have pinkish urine in Santos. Hemoglobin has been stable in 7s in the past 24h Denies any dizziness, headache Denies any shortness of breath, palpitations Denies any chest pain, cough. Denies any fevers, nausea, vomiting, diarrhea. Physical Exam Constitutional: + well hydrated; no acute distress Eyes: PERRL, conjunctivae normal, anicteric sclerae ENMT: external ear and nose normal, oropharynx normal Respiratory: normal respiratory effort, lungs clear to auscultation Cardiovascular: RRR S1 S2 JATINDER Gastrointestinal (Abdomen): normal bowel sounds, soft, nontender, no hepatosplenomegaly Musculoskeletal: No pedal edema Neurologic: PERRL, EOMI, accommodation nl, no face palsy, no dysarthria Psychiatric: A+Ox3, euthymic affect Results & Data Results & Data ([facility]) Vital Signs (Past 12 Hours) Vital Signs Temp Pulse Resp BP Pulse Ox 09/18/21 14:55 36.4 C L 83 20 115/79 100 09/18/21 11:19 36.3 C L 87 20 131/61 99 09/18/21 07:13 36.6 C 112 H 24 108/59 L 100 Laboratory Results Abnormal lab results 09/18/21 09/18/21 Range/Units 13:23 13:23 RBC 2.58 L (4.7-6.1) M/uL Hgb 7.5 L (14.0-18.0) g/dL Hct 23.8 L (42-52) % MCHC 31.5 L (32-36) g/dL RDW Std Deviation 52.7 H (36.4-46.3) fL RDW Coeff of Ramsey 15.5 H (11.5-14.5) % MPV 10.7 H (7.4-10.4) fL Chloride 110 H (98-107) mmol/L BUN 36 H (7-18) mg/dl Creatinine 1.70 H D (0.6-1.4) mg/dl BUN/Creatinine Ratio 21.0 H (10-20) Glucose 157 H (70-99) mg/dl (1) Hematuria Hematuria type: gross Qualified Code(s): R31.0 - Gross hematuria (2) Anemia Anemia type: unspecified type Qualified Code(s): D64.9 - Anemia, unspecified
[2021-09-18] MEDS ORDERED: STAT IV STA (17:07)
[2021-09-18 17:09] LABS: Nucleated RBC % (auto) 1.5 %
--- NOTE | 2021-09-18 17:09 | Emergency Department Note ---
ED Visit Note The patient is an 81-year-old male who is on the Covid unit for COVID-19 infection. I was called to the room when a CODE BLUE was called overhead. I arrived to find the patient in full cardiac arrest with CPR in progress. The patient had a small 22-gauge IV. He had gotten a dose of epinephrine. Reportedly the patient lost pulses and stop breathing. The production maintenance technician was bagging the patient with [id number]. The patient was assessed quickly and I felt the patient was in need of endotracheal intubation. Endotracheal Intubation Indication cardiac arrest. The patient was on 100% oxygen via NRB prior to the procedure. Suction, airway equipment, respiratory equipment, and appropriate personnel were prepared prior to the initiation of the procedure.The airway was easily visualized utilizing a 3.0 MAC blade. A 7.5 size ETT tube was placed atraumatically to 22cm using standard technique. The cuff inflated without signs of malfunction. There were bilateral breath sounds, positive colormetric change, no gastric sounds, a color change was noted on capnography, and post procedure pulse oximetry was 88%. There were no complications. An 18-gauge external jugular line was also placed. The patient had return of pulses. The patient's care was turned over to the admitting team. . : Anemia Qualifiers: Anemia type: unspecified type Qualified Code(s): D64.9 - Anemia, unspecified Hematuria Qualifiers: Hematuria type: gross Qualified Code(s): R31.0 - Gross hematuria
[2021-09-18 17:11] LABS: iSTAT Allen Test Pass; iSTAT Art Bld Gas pCO2 Correct 70 mmHg (35-46); iSTAT Art Bld Gas pH Corrected 6.978 (7.35-7.45); iSTAT Arterial Blood Gas HCO3 17 meg/L (19-24); iSTAT Arterial Blood Gas pCO2 71 mmHg (35-46); iSTAT Arterial Blood Gas pH 6.97 (7.35-7.45); iSTAT Arterial Blood Gas pO2 271 mmHg (80-95); iSTAT Arterial Blood Gas pO2 C 268; iSTAT Carbon Dioxide 19 mmol/L (24-31); iSTAT Hematocrit 21 % (42-52); iSTAT Hemoglobin 7.1 g/dl (14.0-18.0); iSTAT Potassium 4.2 mmol/L (3.3-5.0); iSTAT Site L Brachial; iSTAT Sodium 141 mmol/L (135-144)
--- NOTE | 2021-09-18 17:12 | Communication Note ---
Date of Service: September 18, 2021 Code blue was called on patient RN reported patient reported difficulty breathing and became unresponsive On arrival patient was already undergoing CPR. Had PEA arrest on monitor Got 1 amp of bicarb ROSC achieved Was intubated and emergent central line put in during code Blood gas showed metabolic and respiratory acidosis Started bicarb drip Get CTA to rule out PE Discussed with net application support specialist Dr Ibarra Also get CT abd/P Transfer to ICU Blood work ordered - CBC, CMP, trop, lactate, BCx I called patient's legal guardian and updated her
--- NOTE | 2021-09-18 17:13 | Procedure Note ---
Procedure Note Date of Service September 18, 2021 Note EMERGENCY RIGHT FEMORAL CENTRAL LINE PROCEDURE NOTE:- PLACEMENT OF CENTRAL CATHETER IN CENTRAL VEIN WITHOUT ULTRASOUND Procedure: RIGHT FEMORAL Central Line Placement Attending: BRENTON: ANTHONY GRAF Indication: CARDIAC ARREST with loss of PIV. Central Drug Administration, Poor Venous Access, Multiple Lab Draws Necessary, etc. Anesthesia: None EMERGENCY CARDIAC ARREST A time-out was completed verifying correct patient, procedure, site, positioning, and implants(s) or special equipment if applicable. Patients right groin was cleansed using ChloraPrep. Lateral to the femoral artery that hand was on marking his pulse. Landmarks were used for placment of Emergent line during cardiac arrest After adequate anesthetization was achieved, the Internal Jugular vein was cannulated under direct ultrasound guidance using an introducer needle on a syringe. Good venous blood return was maintained prior to removal of syringe from introducer needle. Using Seldinger Technique, a guide wire was advanced through the introducer needle without resistance. The introducer needle was removed and ultrasound images were obtained of the guide wire within the Internal Jugular Vein and saved to the patients medical record. A small incision was made in penetrating fashion at the guide wire insertion site utilizing an 11 blade scalpel. The dilator was advanced to the vessel without resistance. The dilator was exchanged for the triple lumen catheter which was advanced into the vessel without resistance. The guide wire was removed intact from the catheter without issue. Caves were placed on each catheter tip with confirmation of good blood flow from each lumen. Each port was easily flushed with sterile saline. The catheter was placed at 20 cm and sutured in place. Bio-Patch was applied to the catheter and a sterile Tegaderm dressing was applied over the catheter with careful attention to sterility. No immediate complications were met. noted. NO Images obtained are saved for permanent record as this was emergent Procedure Date: Indication: EMERGENT CARDIAC ARREST Attending: Dr. ALBA Lau palpated Images obtained are saved for permanent record. Coding
[2021-09-18] MEDS ORDERED: SODIUM BICARBONATE 8.4% 100 MEQ in DEXTROSE 5% 1,000 ML IV SCH (17:15)
[2021-09-18] MEDS ORDERED: SODIUM BICARBONATE 8.4% 150 MEQ in DEXTROSE 5% 1,000 ML IV SCH (17:15)
[2021-09-18 17:28] LABS: Alanine Aminotransferase 23 U/L (12-78); Albumin Level 1.8 gm/dl (3.4-5.0); Aspartate Aminotransferase 34 U/L (15-37); BUN Creatinine Ratio 19.3 (10-20); Blood Urea Nitrogen 36 mg/dl (7-18); Calcium 8.3 mg/dl (8.5-10.1); Carbon Dioxide 17 mmol/L (21-32); Chloride 113 mmol/L (98-107); Creatinine Clr Calc Pharmacy 28.8 ml/min; Est GFR (African American) 39.2 ml/min; Est GFR (Non-African American) 33.9 ml/min; Glucose 197 mg/dl (70-99); Magnesium 2.4 mg/dl (1.8-2.4); Potassium 4.7 mmol/L (3.5-5.1); Sodium 145 mmol/L (136-145)
[2021-09-18 17:33] LABS: Hematocrit (blood only) 23.5 % (42-52); Hemoglobin 7.2 g/dL (14.0-18.0); Mean Corpuscular Hemoglobin 29.4 pg (25-34); Mean Corpuscular Hgb Conc 30.6 g/dL (32-36); Mean Corpuscular Volume 95.9 fL (80-100); Mean Platelet Volume 11.7 fL (7.4-10.4); Platelet Count 128 K/uL (130-400); Platelet Estimate Normal (Normal); RDW Coefficient of Variation 15.8 % (11.5-14.5); RDW Standard Deviation 55.2 fL (36.4-46.3); Red Blood Count 2.45 M/uL (4.7-6.1); White Blood Count 6.61 K/uL (4.8-10.8)
[2021-09-18] MEDS ORDERED: OPTIRAY 320 125ml IV ONE (17:40)
--- NOTE | 2021-09-18 17:40 | XRay Report ---
XR chest 1V portable CLINICAL HISTORY: Confirm ETT placement COMPARISON STUDY: Chest radiograph September 11, 2021. FINDINGS: The tip of the endotracheal tube is 6.3 cm above the gabriella. Tip of nasogastric tube is bel ow the lower aspect of this image but at least within the stomach. There is no pneumothorax. There granado s been interval development of a small right pleural effusion with extensive right lower lung opacity . There is also left basilar opacity. Cardiac size is normal. Mediastinal contours are normal. There is no pneumothorax. There is possible pulmonary edema. Note is made of acute appearing fractures of t he anterior right fifth, sixth and seventh ribs. There are several age indeterminate anterior left-si ded rib fractures. IMPRESSION: 1. Tip of endotracheal tube 6.3 cm above the gabriella. 2. Interval development of a small right pleural effusion with extensive right basilar and moderate l eft basilar opacity. The findings may reflect pneumonia, aspiration pneumonia or pulmonary edema. 3. Acute appearing fractures of the anterior right fifth, sixth and seventh ribs. Several age indeter minate anterior left-sided rib fractures. No pneumothorax. ACT 112: Negative or not required by law. Electronically signed by: Art Garrett M.D. 09/18/2021 5:39 PM
[2021-09-18 17:43] LABS: Albumin Globulin Ratio 0.5 (0.9-2); Alkaline Phosphatase 44 U/L (45-117); Bilirubin,Total < 0.1 mg/dl (0.2-1); Globulin 3.7 gm/dl (2.5-4.0); Phosphorus 5.2 mg/dl (2.5-4.9); Total Protein 5.5 gm/dl (6.4-8.2); Troponin I 0.544 ng/ml (0-0.045)
--- NOTE | 2021-09-18 18:11 | CT Scan Report ---
CT ANGIOGRAPHY OF THE CHEST, PULMONARY EMBOLUS PROTOCOL CLINICAL HISTORY: Cardiac arrest. Evaluate for pulmonary embolus. COMPARISON STUDY: Chest radiograph September 11, 2021 and September 18, 2021. TECHNIQUE: Following IV administration of 119 mL of Optiray, helical axial images of the chest were o btained utilizing the pulmonary embolus protocol. Maximal intensity projections and sagittal and cor onal reformats were viewed on an independent 3D workstation. IV contrast was administered without co mplication. Automated exposure control was utilized for the study. A dose lowering technique was ut ilized adhering to the principles of ALARA. FINDINGS: No pulmonary emboli identified although this exam is significantly compromised by respirat ory motion artifact which affects visualization of the segmental and subsegmental pulmonary arteries. The size of the heart is normal. There is extensive coronary artery calcification. There is no thora cic aortic dissection. There is extensive aortic valvular calcification. Endotracheal tube and nasoga stric tubes are in place. [id number] right and small left pleural effusions are present. Left pleural effusion partially obscures the indeterminate 2.3 cm left pleural-based mass shown on axial i mage 169 of 396. This has increased in size since CT of May 20, 2015. There is extensive right lower lobe airspace opacity. There is mild subpleural left lower lobe airspace opacity. There are secretio ns within the airways. Moderate upper lobe predominant emphysema is present. A few indeterminate irre gular densities within the right lung apex measuring 1.5 cm. There are multiple acute right-sided rib fractures. A mildly displaced. There are possible acute nondisplaced anterior left-sided rib fractur es. The abdomen and pelvis will be reported separately. IMPRESSION: 1. No pulmonary emboli identified although exam significantly compromised by respiratory motion artif act. 2. Extensive right lower lobe airspace opacity. Mild left lower lobe airspace opacity. Given secretio ns within the airways, the findings favor aspiration pneumonitis. Pneumonia could appear similar. 3. Small to moderate right and small left pleural effusions. Left pleural effusion partially obscures the indeterminate 2.3 cm left pleural based mass. 4. Multiple acute anterior right-sided rib fractures, several of which are mildly displaced. Possible nondisplaced acute anterior left sided rib fractures. No pneumothorax. 5. Moderate upper lobe predominant emphysema. A few indeterminate irregular right apical densities wh ich measure up to 1.5 cm. A follow-up chest CT in 6 months is recommended. 6. Extensive aortic valvular and coronary artery calcification. ACT 112: Negative or not required by law. Electronically signed by: Art Garrett M.D. 09/18/2021 6:09 PM
[2021-09-18 18:20] LABS: HCO3 ABG 15 mmol/L (19-24); Oxygen Saturation ABG 98.6 % (90-95); PCO2 ABG 35 mmHg (35-46); PO2 ABG 135 mmHg (80-95); pH ABG 7.23 (7.35-7.45)
--- NOTE | 2021-09-18 18:21 | CT Scan Report ---
CT OF THE ABDOMEN AND PELVIS WITH AND WITHOUT CONTRAST HEMATURIA PROTOCOL CLINICAL HISTORY: Cardiac arrest. Hematuria. COMPARISON STUDY: CT of the abdomen and pelvis September 11, 2021. TECHNIQUE: Unenhanced and split bolus phase imaging of the abdomen and pelvis was performed. Intraven ous injection 119 cc Optiray 320 IV was uneventful. Automated exposure control was utilized for the study. A dose lowering technique was utilized adhering to the principles of ALARA. CT DOSE: 1540.07 mGy.cm FINDINGS: Please note that the chest CT will be reported separately. Bilateral pleural effusions and bilateral lower lobe airspace opacities, greater within the right lower lobe, are better depicted on that exam. Note is made of subendocardial hypodensity within the left ventricle. No pneumatosis, free air or portal venous gas is present. Tip of nasogastric tube is within the body of the stomach. There are gallstones within the gallbladder. This exam is compromised by motion artif act. There is no evidence for a bowel obstruction. No pneumatosis, free air or portal venous gas is p resent. There is a suspected Jeanette pouch. Right lower quadrant ostomy is noted. Presacral strandin g/fluid is again noted. This was shown on prior exam. Santos balloon within the bladder is noted. Ther e is decreasing complex material within the bladder which is most mildly enhances. In addition, there are numerous bladder calculi. Bilateral renal calculi are present. There is no hydronephrosis. Sensi tivity for detection of urothelial lesions is diminished on this exam. Marked right renal atrophy is noted. There is extensive aortoiliac atherosclerotic plaque. No abdominal or pelvic lymphadenopathy i s present. There is no biliary or pancreatic ductal dilatation. A right femoral venous catheter is in place. IMPRESSION: 1. Subendocardial hypodensity within the left ventricle. This suggests age indeterminate infarct and could be correlated with cardiac enzymes. 2. Exam significantly compromised by motion artifact. 3. Numerous bladder calculi and small bilateral renal calculi. No ureteral calculi or hydronephrosis. Marked right renal atrophy. 4. Complex material within the bladder likely reflecting hemorrhage. A coexistent mass cannot be excl uded on this exam but is not definitively visualized. 5. Bilateral pleural effusions and bilateral lower lobe airspace opacities which may reflect aspirati on pneumonitis or pneumonia. ACT 112: Negative or not required by law. Electronically signed by: Art Garrett M.D. 09/18/2021 6:20 PM
[2021-09-18 18:24] LABS: Allen Test Pos (Pos)
[2021-09-18] MEDS ORDERED: PROPOFOL IV EMULSION 10 MG/ML 100 ML VIAL IV ONE (18:28)
[2021-09-18] MEDS ORDERED: STAT IV Infusion **Titration per Protocol STA (18:36)
--- NOTE | 2021-09-18 18:37 | Critical Care Consultation ---
Date of Consultation September 18, 2021 Assessment & Plan (1) Cardiac arrest: (2) Bladder stone: (3) COVID-19: (4) Anemia: (5) Hematuria: (6) Malnutrition: (7) Failure to thrive: (8) Pulmonary nodule: Impression: Very debilitated 81-year-old male admitted with hematuria initially refusing care but now with continuous bladder irrigation system in place. He suffered a PEA cardiac arrest of unclear etiology. He has postresuscitation neurological deficits raising the possibility of stroke although it is unlikely that stroke would have caused PEA arrest. Unclear if he aspirated or had a primary arrhythmogenic focus. Regardless he appears to be awake and moving his left side spontaneously. He is not a candidate for TPA given his significant bladder hematuria and given his failure to thrive and comorbid conditions I am not sure he is a candidate for aggressive interventions currently especially given the fact that he has refused a variety of interventions previously. Recommendations: 1. Neurologic: We will proceed with stat CT of the head to ensure no bleed. Depending on those results he may require MRI scanning and or neurology consultation. Will sedate with propofol for now. 2. Cardiovascular: Hemodynamically stable currently but with sedation the patient could develop some hypotension. May need norepinephrine or Eligio- Synephrine to maintain systolic blood pressure. His echocardiogram did show reduced ejection fraction with fairly significant aortic stenosis. Again he is not a candidate for additional intervention. We will try and avoid hypotension. His valvular disease could have put him at an increased risk of stroke. We will await [employer]PERATOR imaging. Trend troponins. Cannot anticoagulate. 3. Pulmonary: Continue current vent settings. Follow-up blood gas and adjust vent to maintain normal levels. The patient does have a pulmonary nodule which appears to be enlarging. This could be consistent with malignancy however the patient is in no condition to consider additional evaluation for nodule currently. We will need to address goals of therapy in this patient prior to consideration of extubation. 4. GI: N.p.o. for now PPI in place. 5. : Continuous bladder irrigation in place. Management per urology. 6. ID: Covid positive. No indication for therapy. He is on Rocephin for upper urinary infectious symptoms. Seems reasonable to continue for now. 8. Heme-onc: Anemia: Secondary to longstanding blood loss. Transfusion thresh old of 7 unless he is hemodynamically unstable. 9. Endocrine: Glycemic control per ICU protocol. 10. Renal: Acute kidney injury with serum creatinine up to 1.84 today. It was 1.37 yesterday. Electrolytes are acceptable. Acid-base status showed severe metabolic and respiratory acidosis. We will follow up blood gas on the ventilator once he is adequately sedated to ensure he is trending in an appropriate fashion. The patient reportedly has a guardian. The hospitalist reportedly updated them today regarding the acute events. They will need to readdress CODE STATUS in this elderly gentleman. His overall prognosis is extremely guarded at this point time. 85 minutes critical care time spent evaluation management and stabilization of this patient including conversations with the hospitalist and with bedside critical care nurse History of Present Illness Attending Physician: Ladan Hall MD History of Present Illness Asked by hospitalist to assist in management of this patient status post PEA cardiac arrest. History is obtained from discussion with the hospitalist as well as review electronic medical record. The patient is intubated and unable to provide any history. No family immediately available. The patient is apparently under the care of a guardian. This 81-year-old male was admitted to the hospital 09/11/2021 from [facility]. He has a history of underlying colostomy anemia poor nutritional status and tobacco abuse. He has had issues with failure to thrive. He developed hematuria at [facility] which prompted his evaluation in the emergency room. He was found to be Covid positive on presentation. Urology consultation was undertaken patient initially declined Santos catheter however eventually agreed to Santos catheter placement with continuous bladder irrigation. Several bladder stones were also noted. It was elected to pursue conservative management see the patient in the outpatient setting to discuss cystoscopy at that point time. Patient had been receiving intermittent Zyprexa for agitation. Today he develop ed an increasing serum creatinine. He had been on Rocephin. He had an elevated troponin with an echocardiogram showing no wall motion abnormalities and troponins had decreased. There is a lung nodule which has been growing. The patient was found to be in PEA arrest and underwent CPR. He was intubated by the ER staff. After the airway was secured, the patient had return of pulses however he is not moving his right upper extremity and only moves the left lower extremity to painful stimuli. CT of the chest was performed which did not demonstrate any PE but did show bilateral pleural effusions with some potential endobronchial debris concerning for potential aspiration. CT the abdomen was performed which did not demonstrate any acute pathology. His postarrest blood gas showed severe metabolic and respiratory acidosis. He is currently hemodynamically stable and awake but not following any commands. Allergies Allergy/AdvReac Type Severity Reaction Status Date / Time No Known Allergies Allergy Unverified 09/11/21 12:02 Home Medications Medication Instructions Recorded Confirmed Type acetaminophen 325 mg tablet 325 mg PO Q4H 09/11/21 09/11/21 History bisacodyl 10 mg rectal suppository 10 mg OK DAILY 09/11/21 09/11/21 History docusate sodium 100 mg capsule 100 mg PO BID 09/11/21 09/11/21 History heparin (porcine) 5,000 unit/mL 5,000 unit SUBCUT Q12H 09/11/21 09/11/21 History injection solution magnesium hydroxide 400 mg/5 mL 30 ml PO DAILY 09/11/21 09/11/21 History oral suspension nicotine 21 mg/24 hr daily 1 patch TRANSDERMAL DAILY 09/11/21 09/11/21 History transdermal patch polyethylene glycol 3350 17 17 g PO DAILY 09/11/21 09/11/21 History gram/dose oral powder sodium phosphates 19 gram-7 133 ml OK DAILY 09/11/21 09/11/21 History gram/118 mL enema (Fleet Enema) Patient History Medical History Tobacco user Surgical History Colostomy status History of appendectomy Family History Other Family history unknown Social History Smoking Status: Current every day smoker Tobacco Type: Cigarettes packs per day: 2; Years Smoked: 50; Cigarettes Per Day: > 2 packs; Hx Alcohol Use: No Hx Substance Use: No Preferred Language: Urdu Communication Ability: Impaired Beliefs That Will Affect Care: None marital status: Single Current Living Situation: Rehab Feels Safe at Home: Yes Assistive Devices: None Review of Systems Review of Systems: Unobtainable due to endotracheal tube Physical Exam Constitutional: + ill appearing, + cachectic, + disheveled and + mechanically ventilated Neck: trachea midline, no thyromegaly Respiratory: normal respiratory effort Coarse rhonchi bilaterally Cardiovascular: RRR, no murmur, no edema Gastrointestinal (Abdomen): normal bowel sounds, soft, nontender, no hepatosplenomegaly Musculoskeletal: Extremities: extremities normal to inspection Skin: no rashes, warm and dry Neurologic: No withdrawal to painful stimulus of the right upper extremity. Lymphatic: no cervical lymphadenopathy Results & Data Results & Data ([facility]) Vital Signs (Past 12 Hours) Vital Signs Temp Pulse Pulse Resp BP Pulse Ox 09/18/21 18:06 139 H 26 H 96 09/18/21 16:59 139 H 22 124/81 100 09/18/21 16:00 63 09/18/21 14:55 36.4 C L 83 20 115/79 100 09/18/21 11:19 36.3 C L 87 20 131/61 99 09/18/21 08:00 57 L 09/18/21 07:13 36.6 C 112 H 24 108/59 L 100 Diagnostic Findings Echocardiogram from 09/12/2021 was limited due to the patient being extremely agitated. Concentric LVH was noted with mild to moderate global hypokinesis of the left ventricle and an EF of 45-50. Aortic valve calcified with moderate to severe aortic stenosis and grade 1 diastolic dysfunction Critical Care Results & Data Vital Signs (Past 12 Hours) Vital Signs Temp Pulse Pulse Resp BP Pulse Ox 09/18/21 18:06 139 H 26 H 96 09/18/21 16:59 139 H 22 124/81 100 09/18/21 16:00 63 09/18/21 14:55 36.4 C L 83 20 115/79 100 09/18/21 11:19 36.3 C L 87 20 131/61 99 09/18/21 08:00 57 L 09/18/21 07:13 36.6 C 112 H 24 108/59 L 100 Lab & Micro Results (Past 24 Hours) RBC 2.45 M/uL (4.7-6.1) L 09/18/21 WBC 6.61 K/uL (4.8-10.8) 09/18/21 Hgb 7.2 g/dL (14.0-18.0) L 09/18/21 Hct 23.5 % (42-52) L 09/18/21 MCV 95.9 fL (80-100) 09/18/21 MCH 29.4 pg (25-34) 09/18/21 MCHC 30.6 g/dL (32-36) L 09/18/21 RDW Standard Deviation 55.2 fL (36.4-46.3) H 09/18/21 RDW Coefficient of Variation 15.8 % (11.5-14.5) H 09/18/21 Plt Count 128 K/uL (130-400) L 09/18/21 MPV 11.7 fL (7.4-10.4) H 09/18/21 Nucleated Red Blood Cells % (auto) 1.5 % 09/18/21 Nucleated RBC Absolute Count (auto) 0.10 K/uL (0-0) H 09/18/21 Na 145 mmol/L (136-145) 09/18/21 K 4.7 mmol/L (3.5-5.1) 09/18/21 Cl 113 mmol/L (98-107) H 09/18/21 CO2 17 mmol/L (21-32) L 09/18/21 Anion Gap 15.0 (3-11) H 09/18/21 BUN 36 mg/dl (7-18) H 09/18/21 Creatinine 1.84 mg/dl (0.6-1.4) H 09/18/21 Estimated GFR ( Amer) 39.2 ml/min 09/18/21 Estimated GFR (Non-Af Amer) 33.9 ml/min 09/18/21 BUN/Creatinine Ratio 19.3 (10-20) 09/18/21 Glu 197 mg/dl (70-99) H 09/18/21 Ca 8.3 mg/dl (8.5-10.1) L 09/18/21 Phosphorus Level 5.2 mg/dl (2.5-4.9) H 09/18/21 Total Bilirubin < 0.1 mg/dl (0.2-1) L 09/18/21 AST 34 U/L (15-37) 09/18/21 ALT 23 U/L (12-78) 09/18/21 Alkaline Phosphatase 44 U/L (45-117) L 09/18/21 TP 5.5 gm/dl (6.4-8.2) L 09/18/21 Albumin 1.8 gm/dl (3.4-5.0) L 09/18/21 Globulin 3.7 gm/dl (2.5-4.0) 09/18/21 Albumin/Globulin Ratio 0.5 (0.9-2) L 09/18/21 Mg 2.4 mg/dl (1.8-2.4) 09/18/21 16:45 09/18/21 Calcium Level 8.3 mg/dl (8.5-10.1) L 09/18/21 16:45 09/18/21 Prothromb Time International Ratio 1.0 (0.9-1.1) 09/18/21 13:23 09/18/21 Blood Gas Barometric Pressure 729.0 mm/Hg 09/18/21 18:06 09/18/21 Arterial Blood pH 7.23 (7.35-7.45) L 09/18/21 18:06 09/18/21 Arterial Blood Partial Pressure CO2 35 mmHg (35-46) 09/18/21 18:06 09/18/21 Arterial Blood Partial Pressure O2 135 mmHg (80-95) H 09/18/21 18:06 09/18/21 Arterial Blood HCO3 15 mmol/L (19-24) L 09/18/21 18:06 09/18/21 Arterial Blood Base Excess -12.0 mEq/L (-9-1.8) L 09/18/21 18:06 09/18/21 Arterial Blood Oxygen Saturation 98.6 % (90-95) H 09/18/21 18:06 09/18/21 Blood Gas Oxygen Given ROOM AIR 09/18/21 18:06 09/18/21 Domenic Test Pos (Pos) 09/18/21 18:06 09/18/21 Blood Gas Barometric Pressure 729.0 mm/Hg 09/18/21 18:06 09/18/21 Diagnostic Findings (Past 24 Hours) Chest CTA 09/18/21 16:56 CT ANGIOGRAPHY OF THE CHEST, PULMONARY EMBOLUS PROTOCOL CLINICAL HISTORY: Cardiac arrest. Evaluate for pulmonary embolus. COMPARISON STUDY: Chest radiograph September 11, 2021 and September 18, 2021. TECHNIQUE: Following IV administration of 119 mL of Optiray, helical axial images of the chest were obtained utilizing the pulmonary embolus protocol. Maximal intensity projections and sagittal and coronal reformats were viewed on an independent 3D workstation. IV contrast was administered without complication. Automated exposure control was utilized for the study. A dose lowering technique was utilized adhering to the principles of ALARA. FINDINGS: No pulmonary emboli identified although this exam is significantly compromised by respiratory motion artifact which affects visualization of the segmental and subsegmental pulmonary arteries. The size of the heart is normal. There is extensive coronary artery calcification. There is no thoracic aortic dissection. There is extensive aortic valvular calcification. Endotracheal tube and nasogastric tubes are in place. [id number] right and small left pleural effusions are present. Left pleural effusion partially obscures the indeterminate 2.3 cm left pleural-based mass shown on axial image 169 of 396. This has increased in size since CT of May 20, 2015. There is extensive right lower lobe airspace opacity. There is mild subpleural left lower lobe airspace opacity. There are secretions within the airways. Moderate upper lobe predominant emphysema is present. A few indeterminate irregular densities within the right lung apex measuring 1.5 cm. There are multiple acute right-sided rib fractures. A mildly displaced. There are possible acute nondisplaced anterior left-sided rib fractures. The abdomen and pelvis will be reported separately. IMPRESSION: 1. No pulmonary emboli identified although exam significantly compromised by respiratory motion artifact. 2. Extensive right lower lobe airspace opacity. Mild left lower lobe airspace opacity. Given secretions within the airways, the findings favor aspiration pneumonitis. Pneumonia could appear similar. 3. Small to moderate right and small left pleural effusions. Left pleural effusion partially obscures the indeterminate 2.3 cm left pleural based mass. 4. Multiple acute anterior right-sided rib fractures, several of which are mildly displaced. Possible nondisplaced acute anterior left sided rib fractures. No pneumothorax. 5. Moderate upper lobe predominant emphysema. A few indeterminate irregular right apical densities which measure up to 1.5 cm. A follow-up chest CT in 6 months is recommended. 6. Extensive aortic valvular and coronary artery calcification. ACT 112: Negative or not required by law. Electronically signed by: Art Garrett M.D. 09/18/2021 6:09 PM Chest X-Ray 09/18/21 17:02 XR chest 1V portable CLINICAL HISTORY: Confirm ETT placement COMPARISON STUDY: Chest radiograph September 11, 2021. FINDINGS: The tip of the endotracheal tube is 6.3 cm above the gabriella. Tip of nasogastric tube is below the lower aspect of this image but at least within the stomach. There is no pneumothorax. There has been interval development of a small right pleural effusion with extensive right lower lung opacity. There is also left basilar opacity. Cardiac size is normal. Mediastinal contours are normal. There is no pneumothorax. There is possible pulmonary edema. Note is made of acute appearing fractures of the anterior right fifth, sixth and seventh ribs. There are several age indeterminate anterior left-sided rib fractures. IMPRESSION: 1. Tip of endotracheal tube 6.3 cm above the gabriella. 2. Interval development of a small right pleural effusion with extensive right basilar and moderate left basilar opacity. The findings may reflect pneumonia, aspiration pneumonia or pulmonary edema. 3. Acute appearing fractures of the anterior right fifth, sixth and seventh ribs. Several age indeterminate anterior left-sided rib fractures. No pneumothorax. ACT 112: Negative or not required by law. Electronically signed by: Art Garrett M.D. 09/18/2021 5:39 PM Abdomen/Pelvis CT 09/18/21 17:09 CT OF THE ABDOMEN AND PELVIS WITH AND WITHOUT CONTRAST HEMATURIA PROTOCOL CLINICAL HISTORY: Cardiac arrest. Hematuria. COMPARISON STUDY: CT of the abdomen and pelvis September 11, 2021. TECHNIQUE: Unenhanced and split bolus phase imaging of the abdomen and pelvis was performed. Intravenous injection 119 cc Optiray 320 IV was uneventful. Automated exposure control was utilized for the study. A dose lowering technique was utilized adhering to the principles of ALARA. CT DOSE: 1540.07 mGy.cm FINDINGS: Please note that the chest CT will be reported separately. Bilateral pleural effusions and bilateral lower lobe airspace opacities, greater within the right lower lobe, are better depicted on that exam. Note is made of subendocardial hypodensity within the left ventricle. No pneumatosis, free air or portal venous gas is present. Tip of nasogastric tube is within the body of the stomach. There are gallstones within the gallbladder. This exam is compromised by motion artifact. There is no evidence for a bowel obstruction. No pneumatosis, free air or portal venous gas is present. There is a suspected Jeanette pouch. Right lower quadrant ostomy is noted. Presacral stranding/fluid is again noted. This was shown on prior exam. Santos balloon within the bladder is noted. There is decreasing complex material within the bladder which is most mildly enhances. In addition, there are numerous bladder calculi. Bilateral renal calculi are present. There is no hydronephrosis. Sensitivity for detection of urothelial lesions is diminished on this exam. Marked right renal atrophy is noted. There is extensive aortoiliac atherosclerotic plaque. No abdominal or pelvic lymphadenopathy is present. There is no biliary or pancreatic ductal dilatation. A right femoral venous catheter is in place. IMPRESSION: 1. Subendocardial hypodensity within the left ventricle. This suggests age indeterminate infarct and could be correlated with cardiac enzymes. 2. Exam significantly compromised by motion artifact. 3. Numerous bladder calculi and small bilateral renal calculi. No ureteral calculi or hydronephrosis. Marked right renal atrophy. 4. Complex material within the bladder likely reflecting hemorrhage. A coexistent mass cannot be excluded on this exam but is not definitively visual ized. 5. Bilateral pleural effusions and bilateral lower lobe airspace opacities which may reflect aspiration pneumonitis or pneumonia. ACT 112: Negative or not required by law. Electronically signed by: Art Garrett M.D. 09/18/2021 6:20 PM I & O Totals 24 Hours 09/17/21 09/18/21 09/19/21 06:59 06:59 06:59 Intake Total 1870 / 1870 1330 / 1330 629 / 629 Output Total 9350 / 9350 2600 / 2600 2300 / 2300 Balance -7480 / -7480 -1270 / -1270 -1671 / -1671 Cumulative 09/11/21 10:16 thru 09/18/21 18:16 Intake Total 54613.75 Output Total 55580 Balance -9249.25 RT Ventilator Mngmt (Last Documented) Ventilator Ordered Settings Ventilator Support Mode Assist Control 09/18/21 18:06 Respiratory Rate 26 09/18/21 18:06 Ventilator Tidal Volume 450 09/18/21 18:06 Setting Minute Ventilation 9.5 09/18/21 18:06 Positive End Expiratory 8 09/18/21 18:06 Pressure Fraction of Inspired Oxygen 60 09/18/21 18:06 Ventilator - PT Measurements Respiratory Rate 26 Exhaled Tidal Volume 450 Minute Ventilation 9.5 Peak Inspiratory Airway 28 Pressure Plateau Pressure 22 Respiratory Cycle Inspiratory: 1:2.1 Expiratory Ratio Inspiratory Phase Time 0.7 Static Lung Compliance 32.14 Dynamic Lung Compliance 22.50 Normal Static Lung Compliance 46.00 Coding Level of Care Code Critical Care ea addt'l 30 min Diagnoses Cardiac arrest I46.9 Bladder stone N21.0 COVID-19 U07.1 Anemia D64.9 Anemia type: unspecified type Hematuria R31.0 Hematuria type: gross Malnutrition E46 Failure to thrive Pulmonary nodule R91.1 Time Spent (min) 85 (1) Anemia Anemia type: unspecified type Qualified Code(s): D64.9 - Anemia, unspecified (2) Hematuria Hematuria type: gross Qualified Code(s): R31.0 - Gross hematuria
[2021-09-18] MEDS: propofoL 1,000 MG/100 ML VIAL IV SCH (18:42)
[2021-09-18] MEDS: PROPOFOL BOLUS FROM BAG IV PRN ×2 (19:45→20:15)
[2021-09-18] MEDS: cefTRIAXone SODIUM 1,000 MG in DEXTROSE 5% 50 ML IV SCH (20:28)
[2021-09-18] MEDS: PHENYLEPHRINE HCL 20 MG in DEXTROSE 5% 500 ML IV SCH (20:29)
[2021-09-18 22:10] LABS: iSTAT Allen Test Pass; iSTAT Arterial Blood Gas HCO3 25 meg/L (19-24); iSTAT Arterial Blood Gas pCO2 35 mmHg (35-46); iSTAT Arterial Blood Gas pH 7.47 (7.35-7.45); iSTAT Arterial Blood Gas pO2 113 mmHg (80-95); iSTAT Carbon Dioxide 26 mmol/L (24-31); iSTAT FiO2 50 %; iSTAT Site R Radial
[2021-09-18 23:11] LABS: Hematocrit (blood only) 22.2 % (42-52)
[2021-09-18 23:35] LABS: BUN Creatinine Ratio 19.7 (10-20); Creatinine Clr Calc Pharmacy 26.4 ml/min; Est GFR (African American) 35.3 ml/min; Est GFR (Non-African American) 30.4 ml/min; Potassium 4.6 mmol/L (3.5-5.1)
[2021-09-18 23:40] LABS: Troponin I 18.2 ng/ml (0-0.045)
[2021-09-19] MEDS: NORMOSOL-R 1,000 ML IV SCH ×2 (00:27→09:40)
[2021-09-19] MEDS: PROPOFOL BOLUS FROM BAG IV PRN ×2 (02:00→03:34)
[2021-09-19] MEDS ORDERED: ICU ELECTROLYTE REPLACEMENT PROTOCOL SCH (06:00)
[2021-09-19] MEDS: PHENYLEPHRINE HCL 20 MG in DEXTROSE 5% 500 ML IV SCH (06:19)
[2021-09-19] MEDS: propofoL 1,000 MG/100 ML VIAL IV SCH (06:20)
[2021-09-19 06:44] LABS: Hematocrit (blood only) 19.8 % (42-52); Hemoglobin 6.4 g/dL (14.0-18.0); Mean Corpuscular Hemoglobin 29.4 pg (25-34); Mean Corpuscular Hgb Conc 32.3 g/dL (32-36); Mean Corpuscular Volume 90.8 fL (80-100); Mean Platelet Volume 10.5 fL (7.4-10.4); Nucleated RBC # (auto) 0.02 K/uL (0-0); Nucleated RBC % (auto) 0.3 %; Platelet Count 221 K/uL (130-400); RDW Coefficient of Variation 15.6 % (11.5-14.5); RDW Standard Deviation 52.1 fL (36.4-46.3); Red Blood Count 2.18 M/uL (4.7-6.1); White Blood Count 8.39 K/uL (4.8-10.8)
[2021-09-19] MEDS ORDERED: SODIUM CHLORIDE 0.9% 250 ML IV PRN (06:57)
[2021-09-19 07:15] LABS: BUN Creatinine Ratio 19.2 (10-20); Calcium 8.2 mg/dl (8.5-10.1); Creatinine Clr Calc Pharmacy 26.8 ml/min; Est GFR (African American) 34.8 ml/min; Est GFR (Non-African American) 30.1 ml/min; Magnesium 2.1 mg/dl (1.8-2.4); Potassium 4.6 mmol/L (3.5-5.1)
--- NOTE | 2021-09-19 08:15 | CT Scan Report ---
HEAD CT NONCONTRAST CT DOSE: 614.27 mGy.cm HISTORY: Rule out CVA TECHNIQUE: Multiaxial CT images of the head were performed without the use of intravenous contrast. A utomated exposure control was utilized for this study. A dose lowering technique was utilized adheri ng to the principles of ALARA. Comparison: None. Findings: The paranasal sinuses and mastoid air cells are clear. The calvarium and skull base are int act. There is no mass, hematoma, midline shift, acute infarct. White matter hypodensity is nonspecifi c but suggestive of microvascular ischemic change. The ventricles and sulci demonstrate mild age-rela martita involutional changes. Residual contrast within the brain from the recent chest CTA. This results in suboptimal evaluation for intracranial hemorrhage. Impression: No acute intracranial abnormality. Atrophy and microvascular ischemic changes. ACT 112: Negative or not required by law. Electronically signed by: Tree Ivan M.D. 09/19/2021 8:14 AM
[2021-09-19] MEDS ORDERED: PIPERACILL/TAZOBAC CONSULT ACTIVE PRN (08:36)
[2021-09-19 08:43] LABS: Phosphorus 4.2 mg/dl (2.5-4.9)
[2021-09-19] MEDS ORDERED: PIPERACILLIN/TAZOBACTAM 3.375 GM in DEXTROSE 5% 100 ML IV ONE (09:00)
--- NOTE | 2021-09-19 09:13 | XRay Report ---
XR chest 1V portable HISTORY: Residual or failure. Follow-up. COMPARISON: Chest 09/18/2021. FINDINGS: Endotracheal tube terminates 4.5 cm from the gabriella. A nasogastric tube terminates below th e diaphragm with the tip located at the proximal to mid stomach. No pneumothorax. Mildly displaced ri ght anterior rib fractures are again noted. Right pleural effusion and right mid to lower lung zone a irspace opacities have slightly progressed. Nondisplaced left anterior rib fractures are also noted. These are age-indeterminate. The heart is normal in size. There is mild central pulmonary vascular co ngestion without overt edema. IMPRESSION: 1. Satisfactory support line placement. 2. Redemonstration of the bilateral anterior rib fractures. These appear to be acute on the right. No pneumothorax. 3. Interval progression of the small right pleural effusion and right base airspace opacities. ACT 112: Negative or not required by law. Electronically signed by: Tree Ivan M.D. 09/19/2021 9:11 AM
[2021-09-19 09:24] LABS: Hematocrit (blood only) 19.6 % (42-52); Hemoglobin 6.4 g/dL (14.0-18.0)
--- NOTE | 2021-09-19 09:39 | Critical Care Progress Note ---
Date of Service September 19, 2021 Assessment & Plan (1) Cardiac arrest: (2) Bladder stone: (3) COVID-19: (4) Anemia: (5) Hematuria: (6) Malnutrition: (7) Failure to thrive: (8) Pulmonary nodule: Plan: Impression: Very debilitated 81-year-old male admitted with hematuria initially refusing care but now with continuous bladder irrigation system in place. He suffered a PEA cardiac arrest of unclear etiology. He has postresuscitation neurological deficits raising the possibility of stroke although it is unlikely that stroke would have caused PEA arrest. Unclear if he aspirated or had a primary arrhythmogenic focus. Regardless he appears to be awake and moving his left side spontaneously. He is not a candidate for TPA given his significant bladder hematuria and given his failure to thrive and comorbid conditions I am not sure he is a candidate for aggressive interventions currently especially given the fact that he has refused a variety of interventions previously. 24-hour events: The patient suffered arrest and was resuscitated. Is been sedated on propofol overnight. Is been hemodynamically stable. His neurological deficits have resolved. We were able to discuss with the patient's guardian. Please see comments below. Recommendations: 1. Neurologic: We will lighten sedation in hopes of spontaneous breathing trial and extubation. CT of the head showed no acute abnormality 2. Cardiovascular: Hemodynamically stable currently His echocardiogram did show reduced ejection fraction with fairly significant aortic stenosis. Troponin increased to 30. Again he is not a candidate for additional intervention. We will try and avoid hypotension. Cardiology consultation although I doubt there is anything that can be offered at this point time 3. Pulmonary: Continue current vent settings. His checks x-ray demonstrates multiple rib fractures as well as a probable new right-sided pleural effusion. Would be reluctant to pursue additional invasive procedures including thoracentesis which the guardian agrees with. 4. GI: N.p.o. for now PPI in place. 5. : Continuous bladder irrigation in place. Management per urology. 6. ID: Covid positive. No indication for therapy. He is on Rocephin for upper urinary infectious symptoms. Seems reasonable to continue for now. 8. Heme-onc: Anemia: Secondary to longstanding blood loss. Packed red cells ordered this morning for hemoglobin less than 7. 9. Endocrine: Glycemic control per ICU protocol. 10. Renal: Acute kidney injury with serum creatinine up to 2.03 this morning. Guardian does not wish to pursue renal replacement therapy which I think is appropriate. His acid-base status is improved and electrolytes are stable. The patient has a guardian. She is taken care of this patient for over 7 years and just recently was appointed by the court as a guardian as the patient is no longer able to care for himself. She states that he has declined functionally quite significantly over the last year from both a physical perspective as well as a mental perspective. He is no longer able to care for himself and has a poor quality of life. He is interactions are much less meaningful. He does not recognize people and cannot talk on the phone. We had an extensive discussion regarding CODE STATUS moving forward. She is in agreement and thinks that John would not want aggressive interventions including ACLS, additional CPR, or mechanical ventilation. She would like to focus on quality of life rather than quantity of life. I discussed palliative care which she is open to. A consult will be placed. We will try and get him extubated. I think at this point in time treatment options should largely focus on symptoms. The patient's guardian is in complete agreement and requests that she be kept in the loop regarding his care. She does state that the patient cannot go home as he is unable to care for himself and has failed attempts at home health care nursing. Discussed extensively with the bedside critical care nurse and a total of 78 minutes critical care time including end-of-life issues coordinating care for this patient Admission and Anticipated Discharge Date Admission Date: September 11, 2021 Subjective Patient is intubated and sedated on propofol. He is hemodynamically stable. He is moving all extremities now. He remains intermittently agitated Review of Systems Review of Systems: Unobtainable due to endotracheal tube Physical Exam Constitutional: + ill appearing, + cachectic, + disheveled and + mechanically ventilated Neck: trachea midline, no thyromegaly Respiratory: normal respiratory effort Cardiovascular: RRR, no murmur, no edema Gastrointestinal (Abdomen): normal bowel sounds, soft, nontender, no hepatosplenomegaly Musculoskeletal: Extremities: extremities normal to inspection Skin: no rashes, warm and dry Lymphatic: no cervical lymphadenopathy Results & Data Results & Data ([facility]) Vital Signs (Past 12 Hours) Vital Signs Temp Pulse Resp BP Pulse Ox 09/19/21 08:13 80 24 99 09/19/21 08:00 30.5 C L 77 3 L 105/51 L 99 09/19/21 07:30 30.4 C L 79 24 114/53 L 98 09/19/21 07:00 37.3 C 78 24 95/45 L 98 09/19/21 06:30 37.3 C 80 15 100 09/19/21 06:00 37.1 C 79 24 98/47 L 100 09/19/21 05:45 37.1 C 80 24 94/47 L 98 09/19/21 05:30 37.1 C 78 24 94/45 L 97 09/19/21 05:15 78 24 94/48 L 98 09/19/21 05:00 36.8 C 76 24 93/51 L 98 09/19/21 04:33 79 24 99 09/19/21 04:30 78 24 90/44 L 96 09/19/21 04:00 78 24 98/51 L 100 09/19/21 03:30 82 24 131/59 L 99 09/19/21 03:00 78 24 118/56 L 99 09/19/21 02:30 78 24 119/57 L 99 09/19/21 02:00 77 25 H 115/61 98 09/19/21 01:42 67 09/19/21 01:30 79 24 100 09/19/21 01:00 79 24 98 09/19/21 00:45 36.8 C 82 24 119/55 L 100 09/19/21 00:30 86 24 96/49 L 99 09/19/21 00:15 82 24 107/55 L 98 09/19/21 00:00 81 0 L 106/57 L 98 09/18/21 23:45 80 0 L 108/53 L 99 09/18/21 23:30 84 24 128/60 99 09/18/21 23:00 37 C 83 24 113/60 99 09/18/21 22:30 81 24 97 09/18/21 22:00 87 24 113/62 100 09/18/21 21:30 85 24 101/56 L 99 Critical Care Results & Data Vital Signs (Past 12 Hours) Vital Signs Temp Pulse Resp BP Pulse Ox 09/19/21 08:13 80 24 99 09/19/21 08:00 30.5 C L 77 3 L 105/51 L 99 09/19/21 07:30 30.4 C L 79 24 114/53 L 98 09/19/21 07:00 37.3 C 78 24 95/45 L 98 09/19/21 06:30 37.3 C 80 15 100 09/19/21 06:00 37.1 C 79 24 98/47 L 100 09/19/21 05:45 37.1 C 80 24 94/47 L 98 09/19/21 05:30 37.1 C 78 24 94/45 L 97 09/19/21 05:15 78 24 94/48 L 98 09/19/21 05:00 36.8 C 76 24 93/51 L 98 09/19/21 04:33 79 24 99 09/19/21 04:30 78 24 90/44 L 96 09/19/21 04:00 78 24 98/51 L 100 09/19/21 03:30 82 24 131/59 L 99 09/19/21 03:00 78 24 118/56 L 99 09/19/21 02:30 78 24 119/57 L 99 09/19/21 02:00 77 25 H 115/61 98 09/19/21 01:42 67 09/19/21 01:30 79 24 100 09/19/21 01:00 79 24 98 09/19/21 00:45 36.8 C 82 24 119/55 L 100 09/19/21 00:30 86 24 96/49 L 99 09/19/21 00:15 82 24 107/55 L 98 09/19/21 00:00 81 0 L 106/57 L 98 09/18/21 23:45 80 0 L 108/53 L 99 09/18/21 23:30 84 24 128/60 99 09/18/21 23:00 37 C 83 24 113/60 99 09/18/21 22:30 81 24 97 09/18/21 22:00 87 24 113/62 100 09/18/21 21:30 85 24 101/56 L 99 Lab & Micro Results (Past 24 Hours) RBC 2.18 M/uL (4.7-6.1) L 09/19/21 WBC 8.39 K/uL (4.8-10.8) 09/19/21 Hgb 6.4 g/dL (14.0-18.0) L* 09/19/21 Hct 19.6 % (42-52) L* 09/19/21 MCV 90.8 fL (80-100) 09/19/21 MCH 29.4 pg (25-34) 09/19/21 MCHC 32.3 g/dL (32-36) 09/19/21 RDW Standard Deviation 52.1 fL (36.4-46.3) H 09/19/21 RDW Coefficient of Variation 15.6 % (11.5-14.5) H 09/19/21 Plt Count 221 K/uL (130-400) 09/19/21 MPV 10.5 fL (7.4-10.4) H 09/19/21 Nucleated Red Blood Cells % (auto) 0.3 % 09/19/21 Nucleated RBC Absolute Count (auto) 0.02 K/uL (0-0) H 09/19/21 Na 142 mmol/L (136-145) 09/19/21 K 4.6 mmol/L (3.5-5.1) 09/19/21 Cl 109 mmol/L (98-107) H 09/19/21 CO2 24 mmol/L (21-32) 09/19/21 Anion Gap 9.0 (3-11) 09/19/21 BUN 39 mg/dl (7-18) H 09/19/21 Creatinine 2.03 mg/dl (0.6-1.4) H 09/19/21 Estimated GFR ( Amer) 34.8 ml/min 09/19/21 Estimated GFR (Non-Af Amer) 30.1 ml/min 09/19/21 BUN/Creatinine Ratio 19.2 (10-20) 09/19/21 Glu 119 mg/dl (70-99) H 09/19/21 Ca 8.2 mg/dl (8.5-10.1) L 09/19/21 Phosphorus Level 4.2 mg/dl (2.5-4.9) 09/19/21 Total Bilirubin < 0.1 mg/dl (0.2-1) L 09/18/21 AST 34 U/L (15-37) 09/18/21 ALT 23 U/L (12-78) 09/18/21 Alkaline Phosphatase 44 U/L (45-117) L 09/18/21 TP 5.5 gm/dl (6.4-8.2) L 09/18/21 Albumin 1.8 gm/dl (3.4-5.0) L 09/18/21 Globulin 3.7 gm/dl (2.5-4.0) 09/18/21 Albumin/Globulin Ratio 0.5 (0.9-2) L 09/18/21 Mg 2.1 mg/dl (1.8-2.4) 09/19/21 06:23 09/19/21 Calcium Level 8.2 mg/dl (8.5-10.1) L 09/19/21 06:23 09/19/21 Prothromb Time International Ratio 1.0 (0.9-1.1) 09/18/21 13:23 09/18/21 Blood Gas Barometric Pressure 729.0 mm/Hg 09/18/21 18:06 09/18/21 Arterial Blood pH 7.23 (7.35-7.45) L 09/18/21 18:06 09/18/21 Arterial Blood Partial Pressure CO2 35 mmHg (35-46) 09/18/21 18:06 09/18/21 Arterial Blood Partial Pressure O2 135 mmHg (80-95) H 09/18/21 18:06 09/18/21 Arterial Blood HCO3 15 mmol/L (19-24) L 09/18/21 18:06 09/18/21 Arterial Blood Base Excess -12.0 mEq/L (-9-1.8) L 09/18/21 18:06 09/18/21 Arterial Blood Oxygen Saturation 98.6 % (90-95) H 09/18/21 18:06 09/18/21 Blood Gas Oxygen Given ROOM AIR 09/18/21 18:06 09/18/21 Domenic Test Pass 09/18/21 21:55 09/18/21 Blood Gas Barometric Pressure 729.0 mm/Hg 09/18/21 18:06 09/18/21 Diagnostic Findings (Past 24 Hours) Chest CTA 09/18/21 16:56 CT ANGIOGRAPHY OF THE CHEST, PULMONARY EMBOLUS PROTOCOL CLINICAL HISTORY: Cardiac arrest. Evaluate for pulmonary embolus. COMPARISON STUDY: Chest radiograph September 11, 2021 and September 18, 2021. TECHNIQUE: Following IV administration of 119 mL of Optiray, helical axial images of the chest were obtained utilizing the pulmonary embolus protocol. Maximal intensity projections and sagittal and coronal reformats were viewed on an independent 3D workstation. IV contrast was administered without complication. Automated exposure control was utilized for the study. A dose lowering technique was utilized adhering to the principles of ALARA. FINDINGS: No pulmonary emboli identified although this exam is significantly compromised by respiratory motion artifact which affects visualization of the segmental and subsegmental pulmonary arteries. The size of the heart is normal. There is extensive coronary artery calcification. There is no thoracic aortic dissection. There is extensive aortic valvular calcification. Endotracheal tube and nasogastric tubes are in place. [id number] right and small left pleural effusions are present. Left pleural effusion partially obscures the indeterminate 2.3 cm left pleural-based mass shown on axial image 169 of 396. This has increased in size since CT of May 20, 2015. There is extensive right lower lobe airspace opacity. There is mild subpleural left lower lobe airspace opacity. There are secretions within the airways. Moderate upper lobe predominant emphysema is present. A few indeterminate irregular densities within the right lung apex measuring 1.5 cm. There are multiple acute right-sided rib fractures. A mildly displaced. There are possible acute nondisplaced anterior left-sided rib fractures. The abdomen and pelvis will be reported separately. IMPRESSION: 1. No pulmonary emboli identified although exam significantly compromised by respiratory motion artifact. 2. Extensive right lower lobe airspace opacity. Mild left lower lobe airspace opacity. Given secretions within the airways, the findings favor aspiration pneumonitis. Pneumonia could appear similar. 3. Small to moderate right and small left pleural effusions. Left pleural effusion partially obscures the indeterminate 2.3 cm left pleural based mass. 4. Multiple acute anterior right-sided rib fractures, several of which are mildly displaced. Possible nondisplaced acute anterior left sided rib fractures. No pneumothorax. 5. Moderate upper lobe predominant emphysema. A few indeterminate irregular right apical densities which measure up to 1.5 cm. A follow-up chest CT in 6 months is recommended. 6. Extensive aortic valvular and coronary artery calcification. ACT 112: Negative or not required by law. Electronically signed by: Art Garrett M.D. 09/18/2021 6:09 PM Chest X-Ray 09/18/21 17:02 XR chest 1V portable CLINICAL HISTORY: Confirm ETT placement COMPARISON STUDY: Chest radiograph September 11, 2021. FINDINGS: The tip of the endotracheal tube is 6.3 cm above the gabriella. Tip of nasogastric tube is below the lower aspect of this image but at least within the stomach. There is no pneumothorax. There has been interval development of a small right pleural effusion with extensive right lower lung opacity. There is also left basilar opacity. Cardiac size is normal. Mediastinal contours are normal. There is no pneumothorax. There is possible pulmonary edema. Note is made of acute appearing fractures of the anterior right fifth, sixth and seventh ribs. There are several age indeterminate anterior left-sided rib fractures. IMPRESSION: 1. Tip of endotracheal tube 6.3 cm above the gabriella. 2. Interval development of a small right pleural effusion with extensive right basilar and moderate left basilar opacity. The findings may reflect pneumonia, aspiration pneumonia or pulmonary edema. 3. Acute appearing fractures of the anterior right fifth, sixth and seventh ribs. Several age indeterminate anterior left-sided rib fractures. No pneumothorax. ACT 112: Negative or not required by law. Electronically signed by: Art Garrett M.D. 09/18/2021 5:39 PM Abdomen/Pelvis CT 09/18/21 17:09 CT OF THE ABDOMEN AND PELVIS WITH AND WITHOUT CONTRAST HEMATURIA PROTOCOL CLINICAL HISTORY: Cardiac arrest. Hematuria. COMPARISON STUDY: CT of the abdomen and pelvis September 11, 2021. TECHNIQUE: Unenhanced and split bolus phase imaging of the abdomen and pelvis was performed. Intravenous injection 119 cc Optiray 320 IV was uneventful. Automated exposure control was utilized for the study. A dose lowering technique was utilized adhering to the principles of ALARA. CT DOSE: 1540.07 mGy.cm FINDINGS: Please note that the chest CT will be reported separately. Bilateral pleural effusions and bilateral lower lobe airspace opacities, greater within the right lower lobe, are better depicted on that exam. Note is made of subendocardial hypodensity within the left ventricle. No pneumatosis, free air or portal venous gas is present. Tip of nasogastric tube is within the body of the stomach. There are gallstones within the gallbladder. This exam is compromised by motion artifact. There is no evidence for a bowel obstruction. No pneumatosis, free air or portal venous gas is present. There is a suspected Jeanette pouch. Right lower quadrant ostomy is noted. Presacral stranding/fluid is again noted. This was shown on prior exam. Santos balloon within the bladder is noted. There is decreasing complex material within the bladder which is most mildly enhances. In addition, there are numerous bladder calculi. Bilateral renal calculi are present. There is no hydronephrosis. Sensitivity for detection of urothelial lesions is diminished on this exam. Marked right renal atrophy is noted. There is extensive aortoiliac atherosclerotic plaque. No abdominal or pelvic lymphadenopathy is present. There is no biliary or pancreatic ductal dilatation. A right femoral venous catheter is in place. IMPRESSION: 1. Subendocardial hypodensity within the left ventricle. This suggests age indeterminate infarct and could be correlated with cardiac enzymes. 2. Exam significantly compromised by motion artifact. 3. Numerous bladder calculi and small bilateral renal calculi. No ureteral calculi or hydronephrosis. Marked right renal atrophy. 4. Complex material within the bladder likely reflecting hemorrhage. A coexisten t mass cannot be excluded on this exam but is not definitively visualized. 5. Bilateral pleural effusions and bilateral lower lobe airspace opacities which may reflect aspiration pneumonitis or pneumonia. ACT 112: Negative or not required by law. Electronically signed by: Art Garrett M.D. 09/18/2021 6:[address] 09/18/21 19:[address] DOSE: 614.27 mGy.cm HISTORY: Rule out CVA TECHNIQUE: Multiaxial CT images of the head were performed without the use of intravenous contrast. Automated exposure control was utilized for this study. A dose lowering technique was utilized adhering to the principles of ALARA. Comparison: None. Findings: The paranasal sinuses and mastoid air cells are clear. The calvarium and skull base are intact. There is no mass, hematoma, midline shift, acute infarct. White matter hypodensity is nonspecific but suggestive of microvascular ischemic change. The ventricles and sulci demonstrate mild age-related involutional changes. Residual contrast within the brain from the recent chest CTA. This results in suboptimal evaluation for intracranial hemorrhage. Impression: No acute intracranial abnormality. Atrophy and microvascular ischemic changes. ACT 112: Negative or not required by law. Electronically signed by: Tree Ivan M.D. 09/19/2021 8:14 AM Chest X-Ray 09/19/21 07:00 XR chest 1V portable HISTORY: Residual or failure. Follow-up. COMPARISON: Chest 09/18/2021. FINDINGS: Endotracheal tube terminates 4.5 cm from the gabriella. A nasogastric tube terminates below the diaphragm with the tip located at the proximal to mid stomach. No pneumothorax. Mildly displaced right anterior rib fractures are again noted. Right pleural effusion and right mid to lower lung zone airspace opacities have slightly progressed. Nondisplaced left anterior rib fractures are also noted. These are age-indeterminate. The heart is normal in size. There is mild central pulmonary vascular congestion without overt edema. IMPRESSION: 1. Satisfactory support line placement. 2. Redemonstration of the bilateral anterior rib fractures. These appear to be acute on the right. No pneumothorax. 3. Interval progression of the small right pleural effusion and right base airspace opacities. ACT 112: Negative or not required by law. Electronically signed by: Tree Ivan M.D. 09/19/2021 9:11 AM I & O Totals 24 Hours 09/18/21 09/19/21 09/20/21 06:59 06:59 06:59 Intake Total 1330 / 1330 1316.550 / 1316.550 5.573 / 5.573 Output Total 2600 / 2600 3925 / 3925 Balance -1270 / -1270 -2608.450 / -2608.450 5.573 / 5.573 Cumulative 09/11/21 10:16 thru 09/19/21 07:04 Intake Total 21517.873 Output Total 42259 Balance -22697.127 RT Ventilator Mngmt (Last Documented) Ventilator Ordered Settings Ventilator Support Mode Assist Control 09/19/21 08:13 Respiratory Rate 24 09/19/21 08:13 Ventilator Tidal Volume 450 09/19/21 08:13 Setting Minute Ventilation 10.8 09/19/21 08:13 Positive End Expiratory 6 09/19/21 08:13 Pressure Fraction of Inspired Oxygen 30 09/19/21 08:13 Machine Comment decreased FiO2 to 50% 09/18/21 21:05 Ventilator - PT Measurements Respiratory Rate 24 Exhaled Tidal Volume 446 Minute Ventilation 10.8 Peak Inspiratory Airway 20 Pressure Plateau Pressure 15 Respiratory Cycle Inspiratory: 1:2.6 Expiratory Ratio Inspiratory Phase Time 0.70 Static Lung Compliance 49.56 Dynamic Lung Compliance 31.86 Normal Static Lung Compliance 47.00 Patient Measurements Comment No ETCO2 it is missing the tubing Coding Level of Care Code Critical Care ea addt'l 30 min Diagnoses Cardiac arrest I46.9 Bladder stone N21.0 COVID-19 U07.1 Anemia D64.9 Anemia type: unspecified type Hematuria R31.0 Hematuria type: gross Malnutrition E46 Failure to thrive Pulmonary nodule R91.1 Time Spent (min) 85 Comment [id number] (1) Anemia Anemia type: unspecified type Qualified Code(s): D64.9 - Anemia, unspecified (2) Hematuria Hematuria type: gross Qualified Code(s): R31.0 - Gross hematuria
[2021-09-19] MEDS ORDERED: fentaNYL citrate 100 MCG/2 ML VIAL IV PRN (10:10)
[2021-09-19] MEDS ORDERED: GLYCOPYRROLATE 0.2 MG/ML VIAL IV PRN (11:49)
[2021-09-19] MEDS ORDERED: ONDANSETRON 4 MG OD TAB SL PRN (11:49)
[2021-09-19] MEDS ORDERED: ONDANSETRON INJ 2 MG/ML 2 ML VIAL IV PRN (11:49)
[2021-09-19] MEDS: HYDROmorphone INJ 0.5 MG/0.5 ML SYR IV PRN ×3 (12:15→17:47)
[2021-09-19] MEDS: LORazepam 0.5 MG/1 ML VIAL IV PRN ×2 (12:15→17:45)
--- NOTE | 2021-09-19 12:33 | Hospitalist Progress Note ---
Date of Service September 19, 2021 Assessment & Plan (1) Hematuria: (2) Elevated troponin I level: (3) Failure to thrive: (4) Malnutrition: (5) COVID-19: (6) Anemia: Plan: 81-year-old man with history of colostomy, anemia, malnutrition, tobacco abuse, recent MARICRUZ and rhabdomyolysis after a fall at home and who was discharged to [facility] for failure to thrive who presented from [facility] for hematuria that has been ongoing for 2 days. Patient was noted to be positive for COVID-19. However, no Covid specific therapies were started due to not being hypoxic. Patient was evaluated by urology. Was started on CBI for continuous hematuria. Patient was on ceftriaxone during this time Required 2 units of blood. Yesterday patient had a PEA arrest and had to undergo CPR and was intubated. ROSC was achieved. CT PE was negative for PE but showed extensive right lower lobe opacity and mild left lower lobe opacity, small to moderate right and small left pleural effusion with left pleural effusion partially obscuring indeterminate 2.3 cm left pleural-based mass as well as multiple acute anterior rib fractures without pneumothorax. Also showed a few indeterminate irregular right apical densities. Rib fractures likely due to chest compression. telecommunications specialist as well as account services specialist had a conversation earlier with patient's legal guardian. After goals of care discussion, patient was made comfort care only. Patient was extubated to nasal cannula earlier today.. We will continue comfort care for now. We will stop CBI We will transfer from ICU level of care to [facility] only Admission and Anticipated Discharge Date Admission Date: September 11, 2021 Subjective Patient seen and examined Currently drowsy. Had received dilaudid and ativan earlier Review of Systems Review of Systems: Unobtainable due to reduced consciousness Physical Exam Constitutional: + thin; no acute distress Respiratory: normal respiratory effort; no respiratory distress Currently on nasal cannula Cardiovascular: Rate/Rhythm: regular rate and regular rhythm S1 S2 Gastrointestinal (Abdomen): normal bowel sounds, soft, nontender, no hepatosplenomegaly Neurologic: Drowsy Genitourinary: Santos with bloody urine Results & Data Results & Data ([facility]) Vital Signs (Past 12 Hours) Vital Signs Temp Pulse Resp BP Pulse Ox 09/19/21 08:13 80 24 99 09/19/21 08:00 30.5 C L 77 3 L 105/51 L 99 11/26/21 07:30 30.4 C L 79 24 114/53 L 98 09/19/21 07:00 37.3 C 78 24 95/45 L 98 09/19/21 06:30 37.3 C 80 15 100 09/19/21 06:00 37.1 C 79 24 98/47 L 100 09/19/21 05:45 37.1 C 80 24 94/47 L 98 09/19/21 05:30 37.1 C 78 24 94/45 L 97 09/19/21 05:15 78 24 94/48 L 98 09/19/21 05:00 36.8 C 76 24 93/51 L 98 09/19/21 04:33 79 24 99 09/19/21 04:30 78 24 90/44 L 96 09/19/21 04:00 78 24 98/51 L 100 09/19/21 03:30 82 24 131/59 L 99 09/19/21 03:00 78 24 118/56 L 99 09/19/21 02:30 78 24 119/57 L 99 09/19/21 02:00 77 25 H 115/61 98 09/19/21 01:42 67 09/19/21 01:30 79 24 100 09/19/21 01:00 79 24 98 09/19/21 00:45 36.8 C 82 24 119/55 L 100 Laboratory Results Abnormal lab results 09/18/21 09/18/21 09/18/21 Range/Units 16:45 16:45 16:57 RBC 2.45 L (4.7-6.1) M/uL Hgb 7.2 L (14.0-18.0) g/dL POC Hgb 7.1 L (14.0-18.0) g/dl Hct 23.5 L (42-52) % POC Hct 21 L (42-52) % MCHC 30.6 L (32-36) g/dL RDW Std Deviation 55.2 H (36.4-46.3) fL RDW Coeff of Ramsey 15.8 H (11.5-14.5) % Plt Count 128 L D (130-400) K/uL MPV 11.7 H (7.4-10.4) fL Absolute Nucleated RBC 0.10 H (0-0) K/uL POC pH 6.97 L* (7.35-7.45) POC pCO2 71 H (35-46) mmHg POC pO2 271 H (80-95) mmHg POC HCO3 17 L (19-24) josy/L POC Total CO2 19 L (24-31) mmol/L POC Base Excess -15.0 L (-9-1.8) josy/L ABG pH (7.35-7.45) ABG pH (Temp Correct) 6.978 L* (7.35-7.45) ABG pCO2 (Temp Corrct 70 H (35-46) mmHg ABG pO2 (80-95) mmHg ABG HCO3 (19-24) mmol/L POC ABG O2 Sat 100.0 H (90-95) % ABG O2 Saturation (90-95) % ABG Base Excess (-9-1.8) mEq/L Chloride 113 H (98-107) mmol/L Carbon Dioxide 17 L (21-32) mmol/L Anion Gap 15.0 H (3-11) BUN 36 H (7-18) mg/dl Creatinine 1.84 H (0.6-1.4) mg/dl Glucose 197 H (70-99) mg/dl Lactate (0.4-2.0) mmol/L Calcium 8.3 L (8.5-10.1) mg/dl Phosphorus 5.2 H (2.5-4.9) mg/dl Total Bilirubin < 0.1 L (0.2-1) mg/dl Alkaline Phosphatase 44 L (45-117) U/L Troponin I 0.544 H* (0-0.045) ng/ml Total Protein 5.5 L (6.4-8.2) gm/dl Albumin 1.8 L (3.4-5.0) gm/dl Albumin/Globulin Ratio 0.5 L (0.9-2) Crossmatch 09/18/21 09/18/21 09/18/21 Range/Units 17:51 18:06 21:55 RBC (4.7-6.1) M/uL Hgb (14.0-18.0) g/dL POC Hgb (14.0-18.0) g/dl Hct (42-52) % POC Hct (42-52) % MCHC (32-36) g/dL RDW Std Deviation (36.4-46.3) fL RDW Coeff of Ramsey (11.5-14.5) % Plt Count (130-400) K/uL MPV (7.4-10.4) fL Absolute Nucleated RBC (0-0) K/uL POC pH 7.47 H (7.35-7.45) POC pCO2 (35-46) mmHg POC pO2 113 H (80-95) mmHg POC HCO3 25 H (19-24) josy/L POC Total CO2 (24-31) mmol/L POC Base Excess (-9-1.8) josy/L ABG pH 7.23 L (7.35-7.45) ABG pH (Temp Correct) (7.35-7.45) ABG pCO2 (Temp Corrct (35-46) mmHg ABG pO2 135 H (80-95) mmHg ABG HCO3 15 L (19-24) mmol/L POC ABG O2 Sat 99.0 H (90-95) % ABG O2 Saturation 98.6 H (90-95) % ABG Base Excess -12.0 L (-9-1.8) mEq/L Chloride (98-107) mmol/L Carbon Dioxide (21-32) mmol/L Anion Gap (3-11) BUN (7-18) mg/dl Creatinine (0.6-1.4) mg/dl Glucose (70-99) mg/dl Lactate 8.6 H* (0.4-2.0) mmol/L Calcium (8.5-10.1) mg/dl Phosphorus (2.5-4.9) mg/dl Total Bilirubin (0.2-1) mg/dl Alkaline Phosphatase (45-117) U/L Troponin I (0-0.045) ng/ml Total Protein (6.4-8.2) gm/dl Albumin (3.4-5.0) gm/dl Albumin/Globulin Ratio (0.9-2) Crossmatch 09/18/21 09/18/21 09/18/21 Range/Units 22:55 22:55 22:55 RBC (4.7-6.1) M/uL Hgb 7.0 L (14.0-18.0) g/dL POC Hgb (14.0-18.0) g/dl Hct 22.2 L (42-52) % POC Hct (42-52) % MCHC (32-36) g/dL RDW Std Deviation (36.4-46.3) fL RDW Coeff of Ramsey (11.5-14.5) % Plt Count (130-400) K/uL MPV (7.4-10.4) fL Absolute Nucleated RBC (0-0) K/uL POC pH (7.35-7.45) POC pCO2 (35-46) mmHg POC pO2 (80-95) mmHg POC HCO3 (19-24) josy/L POC Total CO2 (24-31) mmol/L POC Base Excess (-9-1.8) josy/L ABG pH (7.35-7.45) ABG pH (Temp Correct) (7.35-7.45) ABG pCO2 (Temp Corrct (35-46) mmHg ABG pO2 (80-95) mmHg ABG HCO3 (19-24) mmol/L POC ABG O2 Sat (90-95) % ABG O2 Saturation (90-95) % ABG Base Excess (-9-1.8) mEq/L Chloride 108 H (98-107) mmol/L Carbon Dioxide (21-32) mmol/L Anion Gap (3-11) BUN 40 H (7-18) mg/dl Creatinine 2.01 H (0.6-1.4) mg/dl Glucose 205 H (70-99) mg/dl Lactate 2.1 H* (0.4-2.0) mmol/L Calcium 8.0 L (8.5-10.1) mg/dl Phosphorus (2.5-4.9) mg/dl Total Bilirubin (0.2-1) mg/dl Alkaline Phosphatase (45-117) U/L Troponin I 18.200 H* (0-0.045) ng/ml Total Protein (6.4-8.2) gm/dl Albumin (3.4-5.0) gm/dl Albumin/Globulin Ratio (0.9-2) Crossmatch 09/19/21 09/19/21 09/19/21 Range/Units 06:23 06:23 07:07 RBC 2.18 L (4.7-6.1) M/uL Hgb 6.4 L* (14.0-18.0) g/dL POC Hgb (14.0-18.0) g/dl Hct 19.8 L* (42-52) % POC Hct (42-52) % MCHC (32-36) g/dL RDW Std Deviation 52.1 H (36.4-46.3) fL RDW Coeff of Ramsey 15.6 H (11.5-14.5) % Plt Count (130-400) K/uL MPV 10.5 H (7.4-10.4) fL Absolute Nucleated RBC 0.02 H (0-0) K/uL POC pH (7.35-7.45) POC pCO2 (35-46) mmHg POC pO2 (80-95) mmHg POC HCO3 (19-24) josy/L POC Total CO2 (24-31) mmol/L POC Base Excess (-9-1.8) josy/L ABG pH (7.35-7.45) ABG pH (Temp Correct) (7.35-7.45) ABG pCO2 (Temp Corrct (35-46) mmHg ABG pO2 (80-95) mmHg ABG HCO3 (19-24) mmol/L POC ABG O2 Sat (90-95) % ABG O2 Saturation (90-95) % ABG Base Excess (-9-1.8) mEq/L Chloride 109 H (98-107) mmol/L Carbon Dioxide (21-32) mmol/L Anion Gap (3-11) BUN 39 H (7-18) mg/dl Creatinine 2.03 H (0.6-1.4) mg/dl Glucose 119 H (70-99) mg/dl Lactate (0.4-2.0) mmol/L Calcium 8.2 L (8.5-10.1) mg/dl Phosphorus (2.5-4.9) mg/dl Total Bilirubin (0.2-1) mg/dl Alkaline Phosphatase (45-117) U/L Troponin I 32.000 H* (0-0.045) ng/ml Total Protein (6.4-8.2) gm/dl Albumin (3.4-5.0) gm/dl Albumin/Globulin Ratio (0.9-2) Crossmatch See Detail 09/19/21 Range/Units 08:38 RBC (4.7-6.1) M/uL Hgb 6.4 L* (14.0-18.0) g/dL POC Hgb (14.0-18.0) g/dl Hct 19.6 L* (42-52) % POC Hct (42-52) % MCHC (32-36) g/dL RDW Std Deviation (36.4-46.3) fL RDW Coeff of Ramsey (11.5-14.5) % Plt Count (130-400) K/uL MPV (7.4-10.4) fL Absolute Nucleated RBC (0-0) K/uL POC pH (7.35-7.45) POC pCO2 (35-46) mmHg POC pO2 (80-95) mmHg POC HCO3 (19-24) josy/L POC Total CO2 (24-31) mmol/L POC Base Excess (-9-1.8) josy/L ABG pH (7.35-7.45) ABG pH (Temp Correct) (7.35-7.45) ABG pCO2 (Temp Corrct (35-46) mmHg ABG pO2 (80-95) mmHg ABG HCO3 (19-24) mmol/L POC ABG O2 Sat (90-95) % ABG O2 Saturation (90-95) % ABG Base Excess (-9-1.8) mEq/L Chloride (98-107) mmol/L Carbon Dioxide (21-32) mmol/L Anion Gap (3-11) BUN (7-18) mg/dl Creatinine (0.6-1.4) mg/dl Glucose (70-99) mg/dl Lactate (0.4-2.0) mmol/L Calcium (8.5-10.1) mg/dl Phosphorus (2.5-4.9) mg/dl Total Bilirubin (0.2-1) mg/dl Alkaline Phosphatase (45-117) U/L Troponin I (0-0.045) ng/ml Total Protein (6.4-8.2) gm/dl Albumin (3.4-5.0) gm/dl Albumin/Globulin Ratio (0.9-2) Crossmatch (1) Hematuria Hematuria type: gross Qualified Code(s): R31.0 - Gross hematuria (2) Anemia Anemia type: unspecified type Qualified Code(s): D64.9 - Anemia, unspecified
--- NOTE | 2021-09-19 12:33 | Palliative Care Consultation ---
Date of Consultation September 19, 2021 Assessment & Plan (1) Pain: Given renal failure, would use IV hydromorphone for pain. As he has been sedated, it is unclear what his opioid analgesic needs will be. Will order prn dosing at this time and monitor with low threshold for infusion if needed to control pain. (2) Palliative care encounter: I spoke with Elizabeth Nakul, John's guardian. She has known him for many years and was a caregiver for him in the past. She tells me that he has had progressive functional decline to the point where he was not able to stand on his own prior to admission. He had been getting meals brought to him but Elizabeth found uneaten moldy meals in his apartment. She also noted that he was not wearing his ostomy bag and was wiping the ostomy with paper towels and throwing them in the trash. He was having confusion and would talk to people on the phone and not know who they were. She feels confident that given his quality of life prior to admission and his current medical condition, he would want the focus of his care to be on comfort. We discussed shift of focus on medications to only those for his symptom relief and comfort. She is agreeable. She would like to have updates as his condition changes. Palliative care will follow. (3) Cardiac arrest: (4) COVID-19: (5) Bladder mass: (6) Failure to thrive: (7) Colostomy status: (8) MARICRUZ (acute kidney injury): History of Present Illness Reason for Consultation: comfort measures Requesting Physician: Dr. Ibarra Attending Physician: Ladan Hall MD History of Present Illness 81 yo gentleman who had been living alone and presented with hematuria. He has a history of colostomy, tobacco abuse and MARICRUZ with rhabdomyolysis after a fall at home in June. He was seen by urology and found to have a bladder calculus and possible mass. He has been receiving bladder irrigation. On admission, he was also found to be covid positive, though he has not had any respiratory complaints. He has had some runs of NSVT and last night had cardiopulmonary arrest requiring CPR and intubation. During CPR he sustained multiple rib fractures. Dr. Ibarra has spoken to he legal guardian, Elizabeth Valentineambreenmaria isabel who has indicated that John would not want further aggresssive care and has requested that focus of care be comfort oriented. Per RN, John is awake, calling out at times but not able to participate in any meaningful conversation. Allergies Allergy/AdvReac Type Severity Reaction Status Date / Time No Known Allergies Allergy Unverified 09/11/21 12:02 Home Medications Medication Instructions Recorded Confirmed Type acetaminophen 325 mg tablet 325 mg PO Q4H 09/11/21 09/11/21 History bisacodyl 10 mg rectal suppository 10 mg AR DAILY 09/11/21 09/11/21 History docusate sodium 100 mg capsule 100 mg PO BID 09/11/21 09/11/21 History heparin (porcine) 5,000 unit/mL 5,000 unit SUBCUT Q12H 09/11/21 09/11/21 History injection solution magnesium hydroxide 400 mg/5 mL 30 ml PO DAILY 09/11/21 09/11/21 History oral suspension nicotine 21 mg/24 hr daily 1 patch TRANSDERMAL DAILY 09/11/21 09/11/21 History transdermal patch polyethylene glycol 3350 17 17 g PO DAILY 09/11/21 09/11/21 History gram/dose oral powder sodium phosphates 19 gram-7 133 ml AR DAILY 09/11/21 09/11/21 History gram/118 mL enema (Fleet Enema) Patient History Medical History Tobacco user Surgical History Colostomy status History of appendectomy Family History Other Family history unknown Social History Smoking Status: Current every day smoker Tobacco Type: Cigarettes packs per day: 2; Years Smoked: 50; Cigarettes Per Day: > 2 packs; Hx Alcohol Use: No Hx Substance Use: No Preferred Language: Macedonian Communication Ability: Impaired Beliefs That Will Affect Care: None marital status: Single Current Living Situation: Rehab Feels Safe at Home: Yes Assistive Devices: Oxygen - Continuous Review of Systems Review of Systems: Unobtainable due to cognitive status Physical Exam Physical Exam: deferred with Covid 19 isolation Results & Data ([facility]) Vital Signs (Past 12 Hours) Vital Signs Temp Pulse Resp BP Pulse Ox 09/19/21 08:13 80 24 99 09/19/21 08:00 86.9 F L 77 3 L 105/51 L 99 09/19/21 07:30 86.7 F L 79 24 114/53 L 98 09/19/21 07:00 99.1 F 78 24 95/45 L 98 09/19/21 06:30 99.1 F 80 15 100 09/19/21 06:00 98.8 F 79 24 98/47 L 100 09/19/21 05:45 98.8 F 80 24 94/47 L 98 09/19/21 05:30 98.8 F 78 24 94/45 L 97 09/19/21 05:15 78 24 94/48 L 98 09/19/21 05:00 98.2 F 76 24 93/51 L 98 09/19/21 04:33 79 24 99 09/19/21 04:30 78 24 90/44 L 96 09/19/21 04:00 78 24 98/51 L 100 09/19/21 03:30 82 24 131/59 L 99 09/19/21 03:00 78 24 118/56 L 99 09/19/21 02:30 78 24 119/57 L 99 09/19/21 02:00 77 25 H 115/61 98 09/19/21 01:42 67 09/19/21 01:30 79 24 100 09/19/21 01:00 79 24 98 09/19/21 00:45 98.2 F 82 24 119/55 L 100 09/19/21 00:30 86 24 96/49 L 99 PG Care Time/CCT Total # of Minutes Spent Total Time Spent: 55 Total Time Spent with Patient: Total time spent is greater than 50% in coordination of care (as documented) at patient's floor/unit and/or counseling patient:goals of care, symptom management, family education and support Coding Level of Care Code 13465 Initial Inpt Care Lvl 2 Diagnoses Pain R52 Palliative care encounter Z51.5 Cardiac arrest I46.9 COVID-19 U07.1 Bladder mass N32.89 Failure to thrive Colostomy status Z93.3 MARICRUZ (acute kidney injury) N17.9
[2021-09-19] MEDS ORDERED: PIPERACILLIN/TAZOBACTAM 3.375 GM in DEXTROSE 5% 100 ML IV SCH (14:00)
--- NOTE | 2021-09-19 18:35 | Death Pronouncement Note ---
Date of Service September 19, 2021 Pronouncement Note Admission Date Admission Date: September 11, 2021 Date and Time of Date of : 09/19/21 Time of : 18:12 Contributing Factors (1) Hematuria: (2) Elevated troponin I level: (3) Failure to thrive: (4) Malnutrition: (5) COVID-19: (6) Anemia: Summary Additional details: Called by RN that patient is . On evaluation, no breathing movement Pupils were dilated and fixed Absent pulses Heart sounds were absent. Patient was pronounced Time of 6:12PM Date of 09/19/21 Called legal guardian, updated her and answered all her questions Additional Data Attending physician: Ladan Hall MD
--- NOTE | 2021-09-19 18:42 | Discharge Summary ---
Date of Service September 19, 2021 Admission HPI Per Admitting Provider This is an 81-year-old male who has history of colostomy, anemia, malnutrition, significant tobacco abuse, who was recently admitted at the end of June for MARICRUZ and rhabdomyolysis after sustained a fall at home, and was discharged to [facility] for failure to thrive. He presents today from [facility] due to hematuria which has been ongoing for 2 days per nursing. Pt reports " it comes and goes sometimes", but is unable to answer my questions about how long this has been ongoing. He denies both pain with urination and increased frequency. Denies lightheadedness of dizziness. No chest pain or shortness of breath. Since being in the ER pt had refused a rodarte catheter but states that he is agreeable if needed. He has been walking without issues and participating with PT/OT. He is eating and drinking well. Denies any other acute complaints. Pt friend, Renee to be called if he needs assistance. Patient is noted to have a hemoglobin of 8.5 with new possible bladder hematoma vs mass seen on imaging. Troponin is elevated 0.626, EKG changes and is found to be Covid positive on admission. Pt was being evaluated by the office of aging, and has a hearing scheduled for October 07. [facility] was not aware that the patient was Covid positive and they have been contacted/notified. Admission Exam Per Admitting Provider General Appearance: Thin, frail, chronically appearing no apparent distress Head: normocephalic, Atraumatic Eyes: normal inspection, EOMI Neck: supple, Trachea midline Respiratory/Chest: Decreased breath sounds, CTA, No accessory muscle use Cardiovascular: S1, S2, + murmur Abdomen/GI:Soft, Mild suprapubic tender, Bowel sounds present Extremities/Musculoskeletal:normal inspection, no edema Neurologic/Psych:AAOX3, grossly no focal neurological deficits Skin: normal color, warm Principal Diagnosis Acute blood loss anemia Hematuria COVID 19 infection PEA Cardiac Arrest Severe malnutrition Discharge Exam Patient Discharge Data Allergies Allergy/AdvReac Type Severity Reaction Status Date / Time No Known Allergies Allergy Unverified 09/11/21 12:02 Consultations 09/11/21 14:05 ED Decision to Admit Stat 09/11/21 15:42 Consult Urology Routine 09/19/21 09:13 Consult Cardiology Routine 09/19/21 09:36 Consult Palliative Care Routine 09/19/21 11:49 Consult Palliative Care Routine Ordered Studies 09/11/21 11:44 CT abd pelvis wo con Stat 09/18/21 16:56 CT angio chest PE protocol Stat 09/18/21 17:09 CT abdomen pelvis wo/w con Stat 09/18/21 19:26 CT head/brain wo con Urgent Hospital Course (1) Hematuria: (2) Elevated troponin I level: (3) Failure to thrive: (4) Malnutrition: (5) COVID-19: (6) Anemia: 81-year-old man with history of colostomy, anemia, malnutrition, tobacco abuse, recent MARICRUZ and rhabdomyolysis after a fall at home and who was discharged to [facility] for failure to thrive who presented from [facility] for hematuria that has been ongoing for 2 days. Patient was noted to be positive for COVID-19. However, no Covid specific therapies were started due to not being hypoxic. Patient was evaluated by urology. Was started on CBI for continuous hematuria. Patient was on ceftriaxone during this time Required 2 units of blood. Yesterday patient had a PEA arrest and had to undergo CPR and was intubated. ROSC was achieved. CT PE was negative for PE but showed extensive right lower lobe opacity and mild left lower lobe opacity, small to moderate right and small left pleural effusion with left pleural effusion partially obscuring indeterminate 2.3 cm left pleural-based mass as well as multiple acute anterior rib fractures without pneumothorax. Also showed a few indeterminate irregular right apical densities. Rib fractures likely due to chest compression. student specialist as well as youth specialist had a conversation earlier with patient's legal guardian. After goals of care discussion, patient was made comfort care only. Patient was extubated to nasal cannula earlier today.. Patient was on comfort measures only. CBI was discontinued Patient and was pronounced Time of 6:12PM on 09/19/21 Total Time Total Time Spent Total Time Spent (In Minutes): 35 Total Time Includes: Examination of the Patient and Discharge Planning Discharge Plan Discharge Items Reason For Visit: HEMATURIA Follow-up/Referrals: PCP,NO [Primary Care Provider] - Medications and DC Order Prescriptions: No Action acetaminophen 325 mg Tablet 325 mg PO Q4H RF: 0 magnesium hydroxide 400 mg/5 mL Suspension 30 ml PO DAILY RF: 0 bisacodyl 10 mg Suppository 10 mg NC DAILY RF: 0 nicotine 21 mg/24 hr Patch 24 Hour 1 patch TRANSDERMAL DAILY RF: 0 Fleet Enema 19-7 gram/118 mL Enema 133 ml NC DAILY RF: 0 docusate sodium 100 mg Capsule 100 mg PO BID RF: 0 polyethylene glycol 3350 17 gram/dose Powder 17 g PO DAILY RF: 0 heparin (porcine) 5,000 unit/mL Solution 5,000 unit SUBCUT Q12H RF: 0 Admission Data Admit Date/Time: 09/11/21 15:42 Attending Provider: Ladan Hall I. Admit Provider: Aron Hardy Primary Care Provider: PCP,NO Other Providers: Mindi Diaz ; Valentino Doe ; Finesse Pereira ; Vineet Blackmon ; Matt Menendez ; Fermin Carrasco ; Van Palma ; Trevin Youngblood Jr ; Gerry Miranda ; Yoly Castro ; Mary Montalvo ; Tyree Nunez ; Tyree Cummings ; Tony Ling ; Toyin Dean ; Stephany Rabago ; Ryne Allen ; Olegario Shea Michael K.
== END 2021-09-19 18:12 | disposition expired | DRG 695 ==
LOC: ED 10:57 → SUATTDRO 15:42 → EDINP 15:42 → 2E 18:04 → 2S 09-13 16:06 → 2E 09-18 17:11
DX: I46.9 Cardiac arrest, cause unspecified; R62.7 Adult failure to thrive; Z87.891 Personal history of nicotine dependence; R31.0 Gross hematuria; I47.2 Ventricular tachycardia; I35.0 Nonrheumatic aortic (valve) stenosis; Y84.8 Other medical procedures as the cause of abnormal reaction of the patient, or of later complication, without mention of misadventure at the time of the procedure; Y95 Nosocomial condition; Z90.49 Acquired absence of other specified parts of digestive tract; E43 Unspecified severe protein-calorie malnutrition; Z68.1 Body mass index [BMI] 19.9 or less, adult; E87.4 Mixed disorder of acid-base balance; N21.0 Calculus in bladder; N17.9 Acute kidney failure, unspecified; D50.0 Iron deficiency anemia secondary to blood loss (chronic); R13.10 Dysphagia, unspecified; Z79.4 Long term (current) use of insulin; D62 Acute posthemorrhagic anemia; R91.1 Solitary pulmonary nodule; R93.41 Abnormal radiologic findings on diagnostic imaging of renal pelvis, ureter, or bladder; U07.1 COVID-19; Z93.3 Colostomy status; Z79.01 Long term (current) use of anticoagulants; T45.515A Adverse effect of anticoagulants, initial encounter; S22.41XA Multiple fractures of ribs, right side, initial encounter for closed fracture; Z79.899 Other long term (current) drug therapy; I24.8 Other forms of acute ischemic heart disease